=== PATIENT | female | born 1995 | race Caucasian/White ===

== ENCOUNTER → 2016-08-03 | Outpatient (CLI) | payer OTHER ==
[2016-08-03 13:55] LABS: CH 30.5; CHCM 32.5; HCT 31.5 % (34.0-46.0); HDW 3.16; HGB 10.2 gm/dL (11.4-16.0); Hypochromasia Slight; MCH 30.6 pg (25.0-35.0); MCHC 32.3 g/dL (31.0-37.0); Mean Platelet Volume 7.3; RBC 3.33 m/uL (3.80-5.40); RDW 14.7 % (11.5-15.5); WBC 11.8 k/uL (4.0-11.0)
[2016-08-03 13:56] LABS: MCV 94.7 fL (80.0-100.0)
== END | disposition home or self-care (01) ==
LOC: LABWHC1 12:09
PROVIDERS: ATTEND Obstetrics & Gynecology
DX: Z34.92 Encounter for supervision of normal pregnancy, unspecified, second trimester (principal); Z3A.00 Weeks of gestation of pregnancy not specified
CPT/HCPCS: 36415; 82950; 85027

== ENCOUNTER 2016-08-18 19:21 | Outpatient (CLI) | payer OTHER ==
[2016-08-18 19:55] LABS: Appearance,Urine Cloudy (Clear); Bacteria,Urine Rare /hpf; Bilirubin,Urine Negative (Negative); Calcium Oxalate Crystals,Urine Occasional /hpf; Glucose,Urine (UA) Negative (Negative); Ketones,Urine Trace (Negative); Leukocyte Esterase,Urine Large (Negative); Mucus,Urine Occasional /hpf; Nitrite,Urine Negative (Negative); PH, Urine 5.5 (5.0-8.0); Particle Count 16446; Protein,Urine 1+ (Negative); RBC,Urine 16 /hpf (0-5); Specific Gravity,Urine 1.028 (1.001-1.035); Squamous Epithelial Cell,Urine 9 /hpf (0-4); UA Billing (MACRO vs. MICRO) MICRO; WBC,Urine 21 /hpf (0-5)
== END 2016-08-18 20:35 | disposition home or self-care (01) ==
LOC: FBPOP 19:21
PROVIDERS: ATTEND Obstetrics & Gynecology
DX: O99.89 Other specified diseases and conditions complicating pregnancy, childbirth and the puerperium (principal); Z3A.26 26 weeks gestation of pregnancy; R10.9 Unspecified abdominal pain
CPT/HCPCS: 81001; 87086; 99213

== ENCOUNTER → 2016-09-04 | Outpatient (CLI) | payer OTHER ==
--- NOTE | 2016-09-05 09:58 | US ---
EXAMINATION TYPE: US OB anatomy transabd DATE OF EXAM: 09/04/2016 3:34 PM COMPARISON: NONE HISTORY: 4 ch TECHNIQUE: Transabdominal (TA) EXAM MEASUREMENTS: GESTATIONAL AGE / DATING Physician Established: (28 weeks/3 days) EDC: 11/24/16 Dates by LMP: (28 weeks/3 days) EDC: 11/24/16 Dates by First Scan: not available Dates by Current Scan for: (28 weeks/4 days) EDC: 11/23/2016 SURVEY IUP: Single PLACENTA: Anterior PREVIA: No previa DERRICK: 12.11 cm CERVICAL LENGTH (transabdominal: norm > 3.0cm): 3.4 cm BIOMETRY PRESENTATION: Vertex LIE: Transverse lie with head maternal L BPD: 7.2 cm 29 weeks / 0 days HC: 26.6 cm 29 weeks / 0 days AC: 25.0 cm 29 weeks / 1 days FL: 5.5 cm 28 weeks / 6 days ESTIMATED WEIGHT IN GRAMS: 1320 grams ESTIMATED WEIGHT IN LBS/OZS: 2 lbs. 15 oz. WEIGHT PERCENTAGE BASED ON ESTABLISHED DATE: 59 % HC/AC: 1.1 FL/AC: 21.9 HEART RATE: seen real time not documented RHYTHM: ANATOMY SEEN (within normal limits): * Cisterna Magna (< 1.1 cm) 0.5 cm * Nuchal Fold (< 0.6 cm) 0.5 cm * Cerebellum (varies with age) 3.1 cm Cavus Septi Pellucidi Four Chamber Heart Outflow tracts: LVOT/RVOT Stomach Nose / Lips Kidneys (bilateral) Bladder Cord Insert Three Vessel Cord Longitudinal Spine Transverse Spine Arms (bilateral) Legs (bilateral) ANATOMY NOT SEEN: due to position/crowding * Lateral Vent (< 1 cm) 0.9 cm Choroid Plexus (bilateral) Midline Falx Situs Diaphragm Arms (bilateral) MATERNAL WALL MEASUREMENT: 3.4 cm from skin to anterior uterine wall (if exam limited due to body little bitus). TECHNOLOGIST IMPRESSION: As seen above IMPRESSION: Single intrauterine gestation estimated at 28 weeks 4 days gestation. This have a calculated EDC of . Correlate this with her physician establish EDC. 2. Cardiac activity measurement was not obtained. Real-time cardiac activity was reported by the tech nologist. 3. There are some small parts are not evaluated during this examination
== END | disposition home or self-care (01) ==
LOC: RADUSWWP 14:04
PROVIDERS: ATTEND Obstetrics & Gynecology
DX: Z36 Encounter for antenatal screening of mother (principal); Z3A.28 28 weeks gestation of pregnancy
CPT/HCPCS: 76811

== ENCOUNTER 2016-11-23 05:27 | Inpatient (IN) | payer OTHER ==
--- NOTE | 2016-11-22 13:00 | P.HPOB ---
History of Present Illness H&P Date: 11/22/16 Chief Complaint: Patient is presenting for elective induction of labor. This patient is a pleasant 21 yr female EDC 11/24/2016 estimated gestational age 39 and 6/7 weeks who presents for requested induction of labor. care has been uncomplicated. Review of Systems Constitutional: Denies chills, Denies fever Ears, nose, mouth and throat: Denies headache, Denies sore throat Cardiovascular: Denies chest pain, Denies shortness of breath Respiratory: Denies cough Gastrointestinal: Reports heartburn Genitourinary: Reports Menstruation: Reports amenorrhea Musculoskeletal: Denies myalgias Past Medical History Past Medical History: No Reported History History of Any Multi-Drug Resistant Organisms: None Reported Past Surgical History: No Surgical Hx Reported Additional Past Surgical History / Comment(s): gum surgery. no hx of other surgery Past Anesthesia/Blood Transfusion Reactions: No Reported Reaction Past Psychological History: No Psychological Hx Reported Smoking Status: Never smoker Past Alcohol Use History: None Reported Past Drug Use History: None Reported - Past Family History Father History Unknown: Yes Additional Family Medical History / Comment(s): pt is adopted. no hx available Medications and Allergies Home Medications Medication Instructions Recorded Confirmed Type 78/Iron/Folate 1/Dha 1 each PO DAILY 08/18/16 09/09/16 History [Prenate Dha Softgel] Allergies Allergy/AdvReac Type Severity Reaction Status Date / Time No Known Allergies Allergy Verified 09/09/16 21:46 Exam - OBG Physical Exam Abdomen: bowel sounds normal, no diffuse tenderness, no bruit present, no guarding noted, no hepatomegaly, no splenomegaly, no mass Vulva: both: normal Vagina: normal moisture, no discharge Cervix: Cervix in the office was 2 cm/soft. Cervix: no lesion, no discharge Uterus: enlarged (fundal height was 40cm.) Results labs: A positive, Rubella Immune, RPR-HepB neg, Normal glucola, normal ultrasounds. GBS was negative. Assessment and Plan (1) Third trimester Narrative/Plan: This is a pleasant 21 yr old female 39 and 6/7 weeks estimated gestation age who is requesting elective induction of labor. Plan is induction of labor and anticipate normal vaginal delivery. Status: Acute (2) Elective induction of labor planned Status: Acute
[2016-11-23] MEDS ORDERED: TERBUTALINE 1 MG/ML VIAL SQ PRN (05:35)
[2016-11-23] MEDS ORDERED: LIDOCAINE 1% (PF) 10 MG/ML (30 ML SDV) SQ PRN (05:35)
[2016-11-23] MEDS ORDERED: CARBOPROST TROMETHAMINE 250 MCG/ML 1 ML AMP IM PRN (05:35)
[2016-11-23] MEDS ORDERED: OXYTOCIN 20 UNITS/1000 ML NS 1,000 ML IV SCH ×2 (05:35→12:33)
[2016-11-23] MEDS ORDERED: METHYLERGONOVINE 0.2 MG/ML 1 ML AMP IM PRN (05:35)
[2016-11-23] MEDS ORDERED: OXYTOCIN 10 UNIT/ML 1 ML VIAL IM PRN (05:35)
[2016-11-23 05:54] LABS: Basophils # (A) 0.1 k/uL (0-0.2); Basophils % (A) 1 %; CH 29.4; CHCM 33.4; Eosinophils # (A) 0.1 k/uL (0-0.7); Eosinophils % (A) 1 %; HCT 33.2 % (34.0-46.0); HDW 3.34; HGB 11.1 gm/dL (11.4-16.0); Luc # (Auto) 0.31; Luc % (Auto) 3; Lymphocytes # (A) 2.1 k/uL (1.0-4.8); Lymphocytes % (A) 19 %; MCH 29.5 pg (25.0-35.0); MCHC 33.3 g/dL (31.0-37.0); MCV 88.6 fL (80.0-100.0); Mean Platelet Volume 7.5; Monocytes # (A) 0.7 k/uL (0-1.0); Monocytes % (A) 6 %; Neutrophils # (A) 7.7 k/uL (1.3-7.7); Neutrophils % (A) 70 %; RBC 3.75 m/uL (3.80-5.40); RDW 15.4 % (11.5-15.5); WBC 10.9 k/uL (4.0-11.0); WBC (Perox) 10.81
[2016-11-23] MEDS: LACTATED RINGERS 1,000 ML IV SCH ×2 (06:00→08:52)
[2016-11-23] MEDS ORDERED: fentaNYL (PF) 50 MCG/ML 5 ML AMP ONE (08:54)
[2016-11-23] MEDS ORDERED: BUPIVACAINE (PF) 0.25% 30 ML VIAL ONE (08:54)
[2016-11-23] MEDS ORDERED: SODIUM CHLORIDE 0.9% 100 ML BAG ONE (08:54)
[2016-11-23] MEDS ORDERED: BUPIVACAINE (PF) 0.25% 25 ML, fentaNYL (PF) 200 MCG in SODIUM CHLORIDE 0.9% 71 ML EPIDURAL ONE (10:18)
[2016-11-23] MEDS ORDERED: diphenhydrAMINE 25 MG CAP PO PRN (12:33)
[2016-11-23] MEDS ORDERED: ZOLPIDEM 5 MG TAB PO PRN (12:33)
[2016-11-23] MEDS ORDERED: SIMETHICONE 80 MG CHEWABLE PO PRN (12:33)
[2016-11-23] MEDS ORDERED: diphenhydrAMINE 50 MG/ML 1 ML VIAL IVP PRN (12:33)
[2016-11-23] MEDS ORDERED: Acetaminophen-Codeine 300-30mg TAB PO PRN (12:33)
[2016-11-23] MEDS ORDERED: LANOLIN CREAM 5 GM TUBE TOPICAL PRN (12:33)
[2016-11-23] MEDS ORDERED: WITCH HAZEL 1 EACH MED..PAD TOPICAL PRN (12:33)
[2016-11-23] MEDS ORDERED: HYDROCORTISONE 2.5% RECTAL CREAM 30 GM TUBE RECTAL PRN (12:33)
[2016-11-23] MEDS ORDERED: BENZOCAINE SPRAY 57GM TOPICAL PRN (12:33)
--- NOTE | 2016-11-23 12:51 | P.PROBDLV ---
Vaginal Delivery Note - . Vaginal Delivery Note: Normal vaginal delivery viable female Apgars 8 and 9 delivery time is 1226 hrs. Please see dictated H&P for intimate details of this patient's admission. Brief summary this is a pleasant 21-year-old 2 para 1 female estimated gestational age 39-6/7 weeks gestation who is admitted to labor and delivery for elective induction of labor. Patient is 2-3 cm dilated and has artificial rupture membranes for clear fluid. Labor is induced with Pitocin per protocol. Patient does request an epidural for pain control and progresses quickly thereafter. Patient gets to complete pushes the head to the perineum. Posterior perineum was infiltrated 1% lidocaine and a midline episiotomy is made. He of controlled delivery of the 's head over the perineum. Mouth and nares are bulb suctioned at this time. With gentle downward traction we have delivery the anterior and posterior shoulder and rest this 's body. This is a vigorous viable female Apgars are 8 and 9 delivery time is 1226 hrs. has spontaneous respirations and good cry and grossly appears normal. After delivery of the the umbilical cord is doubly clamped and cut appears to be trivascular. The placenta spontaneously delivered intact. Inspection of the perineum shows a second-degree laceration which was repaired with 3-0 Vicryl usual fashion. Good reapproximation is noted. Estimated blood loss is 175 mL. There are no complications. All counts are correct 3. and mother stable delivery room. Infant's weight is 10 lbs. 5 oz./4680 g.
[2016-11-23] MEDS: SENNOSIDES-DOCUSATE SODIUM 1 EACH TAB PO SCH (20:05)
[2016-11-23] MEDS: Acetaminophen-Codeine 300-30mg TAB PO PRN (20:36)
[2016-11-24] MEDS: IBUPROFEN 600 MG TAB PO PRN ×3 (00:53→19:48)
--- NOTE | 2016-11-24 07:40 | P.PNOBGVD ---
Subjective - Subjective Patient reports: Reports appetite normal, Reports voiding normally, Reports pain well controlled, Reports ambulating normally : doing well Objective - Latest Vital Signs Latest vital signs: Vital Signs Temp Pulse Resp BP 11/23/16 20:00 98.0 F 84 18 136/74 11/23/16 14:32 97.2 F L 92 16 141/75 11/23/16 14:02 109 H 16 130/69 11/23/16 13:32 96.9 F L 108 H 16 141/66 11/23/16 13:17 100 18 136/62 11/23/16 13:02 112 H 18 134/63 11/23/16 12:47 112 H 18 143/70 11/23/16 12:32 98.4 F 127 H 18 144/63 Intake and Output 11/23/16 11/24/16 11/24/16 22:59 06:59 14:59 Other: # Voids 1 - Exam Lungs: bilateral: normal Chest: Normal S1, Normal S2 Extremities: Present: normal Abdomen: Present: normal appearance, soft Uterus: Present: normal, firm Assessment and Plan (1) Third trimester Narrative/Plan: day #1. Patient is resting without complaints. Vital signs are stable and she is afebrile. Uterus is firm nontender she's having normal lochia. My impression this is a normal course. Plan is to continue routine care. Current Visit: No Status: Acute Code(s): Z33.1 - STATE, INCIDENTAL SNOMED Code(s): 27409568 (2) Elective induction of labor planned Current Visit: Yes Status: Acute Code(s): [id number] - SNOMED Code(s): 656364152
[2016-11-24] MEDS: SENNOSIDES-DOCUSATE SODIUM 1 EACH TAB PO SCH ×3 (07:59→19:48)
[2016-11-24] MEDS: Acetaminophen-Codeine 300-30mg TAB PO PRN (08:00)
[2016-11-24] MEDS: ACETAMINOPHEN TAB 325 MG TAB PO PRN (16:29)
[2016-11-25] MEDS: ACETAMINOPHEN TAB 325 MG TAB PO PRN (00:20)
--- NOTE | 2016-11-25 06:10 | P.PNOBGVD ---
Subjective - Subjective Patient reports: Reports appetite normal, Reports voiding normally, Reports pain well controlled, Reports ambulating normally : doing well Objective - Latest Vital Signs Latest vital signs: Vital Signs Temp Pulse Resp BP Pulse Ox 11/24/16 23:51 97.7 F 95 14 119/61 11/24/16 16:00 98.2 F 85 18 126/85 100 11/24/16 12:00 98.2 F 75 18 142/78 100 11/24/16 08:00 98.2 F 90 18 134/71 99 - Exam Lungs: bilateral: normal Chest: Normal S1, Normal S2 Extremities: Present: normal Abdomen: Present: normal appearance, soft Uterus: Present: normal, firm Assessment and Plan (1) Third trimester Narrative/Plan: day #2. Patient is resting without complaints. Vital signs are stable she is afebrile. Uterus is firm nontender and she is having normal lochia. My impression is a normal course. Plan is to continue routine care discharge home later today. Current Visit: No Status: Acute Code(s): Z33.1 - STATE, INCIDENTAL SNOMED Code(s): 96191035 (2) Elective induction of labor planned Current Visit: Yes Status: Acute Code(s): [id number] - SNOMED Code(s): 591084760
--- NOTE | 2016-11-25 06:12 | P.DS ---
Providers Date of admission: 11/23/16 05:27 Expected date of discharge: 11/25/16 Attending physician: William Foster Primary care physician: Alice Lal - Discharge Diagnosis(es) (1) Third trimester Current Visit: No Status: Acute (2) Elective induction of labor planned Current Visit: Yes Status: Acute Hospital Course: Please see dictated H&P for intimate details of this patient's admission. Brief summary this pleasant 21-year-old 2 para 1 female 39-4/7 weeks gestation admitted to labor and delivery for elective induction of labor. Patient goes on have a vaginal delivery viable female infant, 10 lbs. 5 oz. day #2 patient's felt be stable for discharge home follow up with me in 6 weeks. Procedures: Induction of labor and normal vaginal delivery Patient Condition at Discharge: Good Plan - Discharge Summary New Discharge Prescriptions: Acetaminophen-Codeine 300-30mg [Tylenol w/codeine #3] 1 - 2 each PO Q4HR PRN # 30 tab PRN Reason: Mild Pain exceeding Tylenol Ibuprofen [Motrin] 600 mg PO Q6HR PRN #40 tab PRN Reason: Mild Pain Or Fever >= 100.5 Discharge Medication List 78/Iron/Folate 1/Dha [Prenate Dha Softgel] 1 each PO DAILY 08/18/16 [ History] Acetaminophen-Codeine 300-30mg [Tylenol w/codeine #3] 1 - 2 each PO Q4HR PRN # 30 tab 11/25/16 [Rx] Ibuprofen [Motrin] 600 mg PO Q6HR PRN #40 tab 11/25/16 [Rx] Follow up Appointment(s)/Referral(s): William Foster MD [STAFF PHYSICIAN] - 01/09/17 8:45 am Patient Instructions/Handouts: Vaginal Delivery (DC) Activity/Diet/Wound Care/Special Instructions: No intercourse or anything per vagina for 6 weeks. Please call if any fever, chills, excessive vaginal bleeding, and/or abdominal pain Discharge Disposition: HOME SELF-CARE
[2016-11-25] MEDS: IBUPROFEN 600 MG TAB PO PRN (08:08)
[2016-11-25] MEDS: SENNOSIDES-DOCUSATE SODIUM 1 EACH TAB PO SCH (08:09)
[2016-11-25 08:56] VITALS: BP 126/75; PULSE 85; RESP 18; TEMP 98.2
== END 2016-11-25 09:45 | disposition home or self-care (01) | DRG 775 ==
LOC: 4FBP 05:27
PROVIDERS: ADMIT Obstetrics & Gynecology; ATTEND Obstetrics & Gynecology
PROC: 10E0XZZ Delivery of Products of Conception, External Approach (ICD-10-PCS; principal; 2016-11-23)
PROC: 0KQM0ZZ Repair Perineum Muscle, Open Approach (ICD-10-PCS; 2016-11-23)
PROC: 3E033VJ Introduction of Other Hormone into Peripheral Vein, Percutaneous Approach (ICD-10-PCS; 2016-11-23)
PROC: 10907ZC Drainage of Amniotic Fluid, Therapeutic from Products of Conception, Via Natural or Artificial Opening (ICD-10-PCS; 2016-11-23)
PROC: 0W8NXZZ Division of Female Perineum, External Approach (ICD-10-PCS; 2016-11-23)
DX: O70.1 Second degree perineal laceration during delivery (principal); Z37.0 Single live birth; Z3A.39 39 weeks gestation of pregnancy
CPT/HCPCS: 85025; 88307

== ENCOUNTER 2016-12-26 20:07 | Emergency (ER) | payer OTHER ==
[2016-12-26 20:12] VITALS: RESP 18
[2016-12-26] MEDS ORDERED: SODIUM CHLORIDE 0.9% 1,000 ML IV STA (20:26)
--- NOTE | 2016-12-26 20:30 | ED ---
General Adult HPI - General Chief complaint: Back Pain/Injury Stated complaint: Back pain Time Seen by Provider: 12/26/16 20:16 Source: patient, RN notes reviewed Mode of arrival: ambulatory Limitations: no limitations - History of Present Illness Initial comments: This is a 21-year-old female presenting to the emergency Department chief complaint of right mid back pain radiating towards the right upper quadrant off and on for the past 3 weeks. She reports that she delivered her second child on 11/23/16. Patient denies any fever or chills. She reports that she does feel nauseated. Patient states the pain seems to be worse with eating certain fatty foods. Patient states that she has no dysuria or changes in bowel movements. She states that she is currently breast-feeding.Patient denies any recent fever, chills, shortness of breath, chest pain, vomiting, numbness or tingling, dysuria or hematuria, constipation or diarrhea, headaches or visual changes, or any other current symptoms - Related Data Home Medications Medication Instructions Recorded Confirmed 78/Iron/Folate 1/Dha 1 each PO DAILY 08/18/16 11/23/16 [Prenate Dha Softgel] Previous Rx's Medication Instructions Recorded Acetaminophen-Codeine 300-30mg 1 - 2 each PO Q4HR PRN #30 tab 11/25/16 [Tylenol w/codeine #3] Ibuprofen [Motrin] 600 mg PO Q6HR PRN #40 tab 11/25/16 Allergies Allergy/AdvReac Type Severity Reaction Status Date / Time No Known Allergies Allergy Verified 12/26/16 20:12 Review of Systems ROS Statement: Those systems with pertinent positive or pertinent negative responses have been documented in the HPI. ROS Other: All systems not noted in ROS Statement are negative. Past Medical History Past Medical History: No Reported History History of Any Multi-Drug Resistant Organisms: None Reported Past Surgical History: No Surgical Hx Reported Additional Past Surgical History / Comment(s): gum surgery. no hx of other surgery Past Anesthesia/Blood Transfusion Reactions: No Reported Reaction Past Psychological History: No Psychological Hx Reported Smoking Status: Never smoker Past Alcohol Use History: None Reported Past Drug Use History: None Reported - Past Family History Father History Unknown: Yes Additional Family Medical History / Comment(s): pt is adopted. no hx available General Exam - General Exam Comments Initial Comments: This is a 21-year-old female in no acute distress. Limitations: no limitations General appearance: alert, in no apparent distress Head exam: Present: atraumatic, normocephalic, normal inspection Eye exam: Present: normal appearance, PERRL, EOMI. Absent: scleral icterus, conjunctival injection, periorbital swelling ENT exam: Present: normal exam, mucous membranes moist Neck exam: Present: normal inspection. Absent: tenderness, meningismus, lymphadenopathy Respiratory exam: Present: normal lung sounds bilaterally Cardiovascular Exam: Present: regular rate, normal rhythm, normal heart sounds. Absent: systolic murmur, diastolic murmur, rubs, gallop, clicks GI/Abdominal exam: Present: soft, tenderness (Right upper quadrant tenderness.) , normal bowel sounds. Absent: distended, guarding, rebound, rigid Extremities exam: Present: normal inspection, full ROM, normal capillary refill. Absent: tenderness, pedal edema, joint swelling, calf tenderness Back exam: Present: normal inspection Neurological exam: Present: alert, oriented X3, CN II-XII intact Psychiatric exam: Present: normal affect, normal mood Skin exam: Present: warm, dry, intact, normal color. Absent: rash Course Vital Signs 12/26/16 20:10 Temperature 97.5 F L Pulse Rate 84 Respiratory 18 Rate Blood Pressure 130/73 O2 Sat by Pulse 99 Oximetry Medical Decision Making - Medical Decision Making This is a 21-year-old female presenting to the emergency Department chief complaint of right mid back pain radiating towards the right upper quadrant off and on for the past 3 weeks. She reports that she delivered her second child on 11/23/16. Patient denies any fever or chills. She reports that she does feel nauseated. Patient states the pain seems to be worse with eating certain fatty foods. Patient's lab work was reviewed and patient was given IV fluids. Patient's lab work shows a mildly elevated transaminases. Patient received a gallbladder ultrasound which did show 1 cm stone in the gallbladder neck. Borderline gallbladder wall thickening. No evidence of sludge or significant acute cholecystitis. Discussed these findings with the patient. Patient is follow-up with a surgeon to schedule gallbladder removal. Also advised to have a bland diet and clear liquids. Patient instructed on the biliary diet. Patient agrees to treatment plan will comply return parameters were discussed including severe fever and any worsening pain. Discussed the patient to take Tylenol or Motrin for the pain or previous prescribed pain medications as patient is breast-feeding. - Lab Data Result diagrams: 12/26/16 20:36 12/26/16 20:36 Lab Results 12/26/16 12/26/16 12/26/16 Range/Units 20:18 20:36 20:36 WBC 9.2 (4.0-11.0) k/uL RBC 4.57 (3.80-5.40) m/uL Hgb 13.0 (11.4-16.0) gm/dL Hct 37.8 (34.0-46.0) % MCV 82.6 D (80.0-100.0) fL MCH 28.4 (25.0-35.0) pg MCHC 34.4 (31.0-37.0) g/dL RDW 13.6 (11.5-15.5) % Plt Count 343 (150-450) k/uL Neutrophils % 59 % Lymphocytes % 28 % Monocytes % 7 % Eosinophils % 4 % Basophils % 0 % Neutrophils # 5.5 (1.3-7.7) k/uL Lymphocytes # 2.6 (1.0-4.8) k/uL Monocytes # 0.6 (0-1.0) k/uL Eosinophils # 0.3 (0-0.7) k/uL Basophils # 0.0 (0-0.2) k/uL PT (9.0-12.0) sec INR (<1.1) APTT (22.0-30.0) sec Sodium 142 (137-145) mmol/L Potassium 4.1 (3.5-5.1) mmol/L Chloride 104 (98-107) mmol/L Carbon Dioxide 27 (22-30) mmol/L Anion Gap 11 mmol/L BUN 13 (7-17) mg/dL Creatinine 0.76 (0.52-1.04) mg/dL Est GFR (MDRD) Af Amer >60 (>60 ml/min/1.73 sqM) Est GFR (MDRD) Non-Af >60 (>60 ml/min/1.73 sqM) Glucose 93 (74-99) mg/dL Calcium 9.5 (8.4-10.2) mg/dL Total Bilirubin 0.5 (0.2-1.3) mg/dL AST 59 H (14-36) U/L ALT 94 H (9-52) U/L Alkaline Phosphatase 56 (38-126) U/L Total Protein 7.5 (6.3-8.2) g/dL Albumin 4.4 (3.5-5.0) g/dL Amylase 55 (30-110) U/L Lipase 104 (23-300) U/L Urine Color Yellow Urine Appearance Clear (Clear) Urine pH 6.5 (5.0-8.0) Ur Specific [place] 1.022 (1.001-1.035) Urine Protein Negative (Negative) Urine Glucose (UA) Negative (Negative) Urine Ketones Negative (Negative) Urine Blood Negative (Negative) Urine Nitrite Negative (Negative) Urine Bilirubin Negative (Negative) Urine Urobilinogen <2.0 (<2.0) mg/dL Ur Leukocyte Esterase Moderate H (Negative) Urine RBC 1 (0-5) /hpf Urine WBC 9 H (0-5) /hpf Ur Squamous Epith Cells 3 (0-4) /hpf Urine Bacteria Rare H (None) /hpf Urine Mucus Rare H (None) /hpf 12/26/16 Range/Units 20:36 WBC (4.0-11.0) k/uL RBC (3.80-5.40) m/uL Hgb (11.4-16.0) gm/dL Hct (34.0-46.0) % MCV (80.0-100.0) fL MCH (25.0-35.0) pg MCHC (31.0-37.0) g/dL RDW (11.5-15.5) % Plt Count (150-450) k/uL Neutrophils % % Lymphocytes % % Monocytes % % Eosinophils % % Basophils % % Neutrophils # (1.3-7.7) k/uL Lymphocytes # (1.0-4.8) k/uL Monocytes # (0-1.0) k/uL Eosinophils # (0-0.7) k/uL Basophils # (0-0.2) k/uL PT 10.2 (9.0-12.0) sec INR 1.0 (<1.1) APTT 23.5 (22.0-30.0) sec Sodium (137-145) mmol/L Potassium (3.5-5.1) mmol/L Chloride (98-107) mmol/L Carbon Dioxide (22-30) mmol/L Anion Gap mmol/L BUN (7-17) mg/dL Creatinine (0.52-1.04) mg/dL Est GFR (MDRD) Af Amer (>60 ml/min/1.73 sqM) Est GFR (MDRD) Non-Af (>60 ml/min/1.73 sqM) Glucose (74-99) mg/dL Calcium (8.4-10.2) mg/dL Total Bilirubin (0.2-1.3) mg/dL AST (14-36) U/L ALT (9-52) U/L Alkaline Phosphatase (38-126) U/L Total Protein (6.3-8.2) g/dL Albumin (3.5-5.0) g/dL Amylase (30-110) U/L Lipase (23-300) U/L Urine Color Urine Appearance (Clear) Urine pH (5.0-8.0) Ur Specific [place] (1.001-1.035) Urine Protein (Negative) Urine Glucose (UA) (Negative) Urine Ketones (Negative) Urine Blood (Negative) Urine Nitrite (Negative) Urine Bilirubin (Negative) Urine Urobilinogen (<2.0) mg/dL Ur Leukocyte Esterase (Negative) Urine RBC (0-5) /hpf Urine WBC (0-5) /hpf Ur Squamous Epith Cells (0-4) /hpf Urine Bacteria (None) /hpf Urine Mucus (None) /hpf - Radiology Data Radiology results: report reviewed 1 cm stone in the gallbladder neck. No dilated ducts. No Cholecystitis. Gallbladder is borderline enlarged. Disposition Clinical Impression: Biliary colic, Gallbladder stone without cholecystitis or obstruction Disposition: HOME SELF-CARE Condition: Good Instructions: Biliary Colic (ED), Gallstones (ED) Additional Instructions: Patient advised to have a nonfatty bland diet for the next 2 days. Call the surgeon to schedule gallbladder removal surgery. Return to the emergency department if any alarming signs or symptoms occur. Referrals: Alice Lal DO [Primary Care Provider] - 1-2 days Carla Doss DO [Doctor of Osteopathic Medicine] - 1-2 days Time of Disposition: 21:56
[2016-12-26 20:32] LABS: Appearance,Urine Clear (Clear); Bacteria,Urine Rare /hpf; Bilirubin,Urine Negative (Negative); Glucose,Urine (UA) Negative (Negative); Ketones,Urine Negative (Negative); Leukocyte Esterase,Urine Moderate (Negative); Mucus,Urine Rare /hpf; Nitrite,Urine Negative (Negative); PH, Urine 6.5 (5.0-8.0); Particle Count 4266; Protein,Urine Negative (Negative); RBC,Urine 1 /hpf (0-5); Specific Gravity,Urine 1.022 (1.001-1.035); Squamous Epithelial Cell,Urine 3 /hpf (0-4); UA Billing (MACRO vs. MICRO) MICRO; Urobilinogen,Urine <2.0 mg/dL (<2.0); WBC,Urine 9 /hpf (0-5)
[2016-12-26 20:50] LABS: Basophils % (A) 0 %; CH 27.6; CHCM 33.5; Eosinophils # (A) 0.3 k/uL (0-0.7); Eosinophils % (A) 4 %; HCT 37.8 % (34.0-46.0); HDW 3.07; Luc % (Auto) 2; Lymphocytes # (A) 2.6 k/uL (1.0-4.8); Lymphocytes % (A) 28 %; MCH 28.4 pg (25.0-35.0); MCHC 34.4 g/dL (31.0-37.0); Mean Platelet Volume 6.8; Monocytes # (A) 0.6 k/uL (0-1.0); Monocytes % (A) 7 %; Neutrophils # (A) 5.5 k/uL (1.3-7.7); Neutrophils % (A) 59 %; RBC 4.57 m/uL (3.80-5.40); RDW 13.6 % (11.5-15.5); WBC 9.2 k/uL (4.0-11.0); WBC (Perox) 8.76
[2016-12-26 20:59] LABS: Partial Thromboplastin Time 23.5 sec (22.0-30.0); Prothrombin Time 10.2 sec (9.0-12.0)
[2016-12-26 21:01] LABS: ALT 94 U/L (9-52); AST 59 U/L (14-36); Alkaline Phosphatase 56 U/L (38-126); Amylase 55 U/L (30-110); Anion Gap 11 mmol/L; Blood Urea Nitrogen 13 mg/dL (7-17); Calcium 9.5 mg/dL (8.4-10.2); Carbon Dioxide 27 mmol/L (22-30); Chloride 104 mmol/L (98-107); Glucose 93 mg/dL (74-99); MCV 82.6 fL (80.0-100.0); Non-African American GFR(MDRD) >60 (>60 ml/min/1.73 sqM); Potassium 4.1 mmol/L (3.5-5.1); Sodium 142 mmol/L (137-145); Total Bilirubin 0.5 mg/dL (0.2-1.3); Total Protein 7.5 g/dL (6.3-8.2)
--- NOTE | 2016-12-26 21:41 | US ---
EXAMINATION TYPE: US gallbladder DATE OF EXAM: 12/26/2016 COMPARISON: NONE CLINICAL HISTORY: Pain. EXAM MEASUREMENTS: Liver Length: 21.4 cm Gallbladder Wall: 0.31 cm CBD: 0.4 cm Right Kidney: 11.7 x 4.8 x 5.6 cm Pancreas: Obscured by bowel gas, visualized portions wnl Liver: Enlarged Gallbladder: Stone visualized in neck measuring 1.0 cm Evidence for sonographic Sam's sign: No CBD: wnl Right Kidney: No hydronephrosis or masses seen IMPRESSION: There is a 1 cm stone in the gallbladder neck. No dilated ducts. No pancreatic mass. Gall bladder is borderline enlarged.
[2016-12-26 22:06] VITALS: BP 119/87; PULSE 87; TEMP 97.8
== END 2016-12-26 22:06 | disposition home or self-care (01) ==
LOC: EC 20:07
DX: K80.20 Calculus of gallbladder without cholecystitis without obstruction (principal)
CPT/HCPCS: 36415; 76705; 80053; 81001; 82150; 83690; 85025; 85610; 85730; 96360; 99284

== ENCOUNTER 2017-05-13 01:59 | Emergency (ER) | payer OTHER ==
[2017-05-13 02:20] VITALS: BP 125/85; PULSE 89; RESP 18; TEMP 98
--- NOTE | 2017-05-13 03:39 | ED ---
General Adult HPI - General Chief complaint: Recheck/Abnormal Lab/Rx Stated complaint: bat in house Time Seen by Provider: 05/13/17 02:29 Source: patient Mode of arrival: ambulatory Limitations: no limitations - History of Present Illness Initial comments: 22-year-old female patient presents to the emergency department today for evaluation after waking up to find a bat in her bedroom. Patient is unsure if she was bitten, denies any known bite sites. She states that the bat has been killed and they have retained the specimen. Patient denies any physical symptoms or other complaints. - Related Data Home Medications Medication Instructions Recorded Confirmed 78/Iron/Folate 1/Dha 1 each PO DAILY 08/18/16 04/28/17 [Prenate Dha Softgel] Previous Rx's Medication Instructions Recorded Acetaminophen-Codeine 300-30mg 1 - 2 each PO Q4HR PRN #30 tab 11/25/16 [Tylenol w/codeine #3] Ibuprofen [Motrin] 600 mg PO Q6HR PRN #40 tab 11/25/16 Allergies Allergy/AdvReac Type Severity Reaction Status Date / Time No Known Allergies Allergy Verified 05/13/17 02:20 Review of Systems ROS Statement: Those systems with pertinent positive or pertinent negative responses have been documented in the HPI. ROS Other: All systems not noted in ROS Statement are negative. Past Medical History Past Medical History: No Reported History History of Any Multi-Drug Resistant Organisms: None Reported Past Surgical History: No Surgical Hx Reported Additional Past Surgical History / Comment(s): gum surgery. no hx of other surgery Past Anesthesia/Blood Transfusion Reactions: No Reported Reaction Past Psychological History: No Psychological Hx Reported Smoking Status: Never smoker Past Alcohol Use History: None Reported Past Drug Use History: None Reported - Past Family History Father History Unknown: Yes Additional Family Medical History / Comment(s): pt is adopted. no hx available General Exam Limitations: no limitations General appearance: alert, in no apparent distress, other (This is a well- developed, well-nourished adult female patient in no acute distress. Vital signs upon presentation were temperature 98.0F, pulse 89, respirations 18, blood pressure 125/85, pulse ox 99% on room air.) Eye exam: Present: normal appearance, PERRL, EOMI. Absent: scleral icterus, conjunctival injection, periorbital swelling Respiratory exam: Present: normal lung sounds bilaterally. Absent: respiratory distress, wheezes, rales, rhonchi, stridor Cardiovascular Exam: Present: regular rate, normal rhythm, normal heart sounds. Absent: systolic murmur, diastolic murmur, rubs, gallop, clicks Skin exam: Present: warm, dry, intact, normal color, other (No evidence of bat bite). Absent: rash Course Vital Signs 05/13/17 02:17 Temperature 98.0 F Pulse Rate 89 Respiratory 18 Rate Blood Pressure 125/85 O2 Sat by Pulse 99 Oximetry Medical Decision Making - Medical Decision Making 22-year-old female patient presented to emergency department today after waking to find a bat in her bedroom. Patient is unsure if she was bitten. Physical examination was unremarkable, I was not able to find a bat bite site on her person. I did explain to her that these bites can be difficult to see and that this does not completely exclude the possibility that she was bitten. Patient does have the bat specimen. Patient's is planning to have this tested. I did inform her that we could delay administering prophylactic immunoglobulin and vaccine until the bat has been tested. I did tell her that the safe time frame for delaying immunization and immunoglobulin administration is 48-72 hours. We did give information regarding rabies, rabies vaccine, and rabies immunoglobulin for educational purposes. We did give her the phone number for the health department and department of natural resources services. She is instructed to return here immediately should she change her mind about withholding the injections. She is instructed to return here immediately for any other new, worsening, or concerning symptoms. She verbalizes understanding and agrees with this plan. Disposition Clinical Impression: Exposure to bat without known bite Disposition: HOME SELF-CARE Condition: Good Instructions: Rabies Vaccine (By injection), Rabies Immune Globulin (By injection), Rabies (ED) Additional Instructions: Information has been provided to you for education purposes regarding vaccines, immunoglobulin, and rabies. Call health Department in the morning for further instruction. Return here immediate for any new, worsening, or concerning symptoms. Referrals: Alice Lal DO [Primary Care Provider] - 1-2 days Time of Disposition: 03:39
== END 2017-05-13 03:43 | disposition home or self-care (01) ==
LOC: EC 01:59
DX: Z20.3 Contact with and (suspected) exposure to rabies (principal); Z79.899 Other long term (current) drug therapy
CPT/HCPCS: 99283

== ENCOUNTER 2018-09-19 19:00 | Emergency (ER) | payer OTHER ==
[2018-09-19 19:09] VITALS: BP 123/71; PULSE 123; RESP 16; TEMP 100.2
[2018-09-19] MEDS ORDERED: IBUPROFEN 600 MG TAB PO STA (19:35)
[2018-09-19] MEDS ORDERED: ACETAMINOPHEN TAB 325 MG TAB PO STA (19:35)
--- NOTE | 2018-09-19 19:38 | ED ---
ENT HPI - General Chief complaint: ENT Stated complaint: Throat swollen,fever,back pain Time Seen by Provider: 09/19/18 19:11 Source: patient, RN notes reviewed Mode of arrival: ambulatory Limitations: no limitations - History of Present Illness Initial comments: 23-year-old female presents emergency Department chief complaint fever, sore throat. Patient states that it started this morning. Patient states is very painful to swallow difficulty swallowing. Denies any nasal congestion, cough, ear pain, headache or dizziness. Patient states that she has no fatigue. Patient has no abdominal pain this time including dysuria, hematuria, vaginal bleeding or vaginal discharge. Patient has no chance . - Related Data Home Medications Medication Instructions Recorded Confirmed 78/Iron/Folate 1/Dha 1 each PO DAILY 08/18/16 04/28/17 [Prenate Dha Softgel] Previous Rx's Medication Instructions Recorded Acetaminophen-Codeine 300-30mg 1 - 2 each PO Q4HR PRN #30 tab 11/25/16 [Tylenol w/codeine #3] Ibuprofen [Motrin] 600 mg PO Q6HR PRN #40 tab 11/25/16 Amoxicillin 500 mg PO Q8H #30 capsule 09/19/18 Allergies Allergy/AdvReac Type Severity Reaction Status Date / Time No Known Allergies Allergy Verified 09/19/18 19:09 Review of Systems ROS Statement: Those systems with pertinent positive or pertinent negative responses have been documented in the HPI. ROS Other: All systems not noted in ROS Statement are negative. Past Medical History Past Medical History: No Reported History History of Any Multi-Drug Resistant Organisms: None Reported Past Surgical History: No Surgical Hx Reported Additional Past Surgical History / Comment(s): gum surgery. no hx of other surgery Past Anesthesia/Blood Transfusion Reactions: No Reported Reaction Past Psychological History: No Psychological Hx Reported Smoking Status: Never smoker Past Alcohol Use History: None Reported Past Drug Use History: None Reported - Past Family History Father History Unknown: Yes Additional Family Medical History / Comment(s): pt is adopted. no hx available General Exam Limitations: no limitations General appearance: alert, in no apparent distress Head exam: Present: atraumatic, normocephalic, normal inspection Eye exam: Present: normal appearance, PERRL, EOMI. Absent: scleral icterus, conjunctival injection, periorbital swelling ENT exam: Present: mucous membranes moist, TM's normal bilaterally, normal external ear exam. Absent: normal exam, normal oropharynx (Erythematous tonsils, edematous, swan secretions well no exudates) Neck exam: Present: normal inspection, full ROM, lymphadenopathy. Absent: tenderness, meningismus Respiratory exam: Present: normal lung sounds bilaterally. Absent: respiratory distress, wheezes, rales, rhonchi, stridor Cardiovascular Exam: Present: normal rhythm, tachycardia, normal heart sounds. Absent: systolic murmur, diastolic murmur, rubs, gallop, clicks GI/Abdominal exam: Present: soft, normal bowel sounds. Absent: distended, tenderness, guarding, rebound, rigid Back exam: Absent: CVA tenderness (R), CVA tenderness (L) Course Vital Signs 09/19/18 19:06 Temperature 100.2 F H Pulse Rate 123 H Respiratory 16 Rate Blood Pressure 123/71 O2 Sat by Pulse 97 Oximetry Medical Decision Making - Medical Decision Making 23-year-old female presented for sore throat. Patient has clinical strep pharyngitis. Patient we treated for amoxicillin. Patient continue Tylenol Motrin return parameters were discussed. Disposition Clinical Impression: Streptococcal sore throat Disposition: HOME SELF-CARE Condition: Stable Instructions (If sedation given, give patient instructions): Strep Throat (ED) Additional Instructions: Please return to the Emergency Department if symptoms worsen or any other concerns. Prescriptions: Amoxicillin 500 mg PO Q8H #30 capsule Is patient prescribed a controlled substance at d/c from ED?: No Referrals: Alice Lal DO [Primary Care Provider] - 1-2 days Time of Disposition: 19:38
== END 2018-09-19 19:49 | disposition home or self-care (01) ==
LOC: EC 19:00
DX: J02.0 Streptococcal pharyngitis (principal)
CPT/HCPCS: 99283

== ENCOUNTER → 2019-01-12 | Outpatient (CLI) | payer OTHER ==
--- NOTE | 2019-01-16 13:44 | US ---
EXAMINATION TYPE: US OB anatomy transabd DATE OF EXAM: 01/12/2019 COMPARISON: NONE HISTORY: 036.62XO large for dates Anatomy scan large for date. TECHNIQUE: Transabdominal (TA) EXAM MEASUREMENTS: GESTATIONAL AGE / DATING Physician Established: (19 weeks/2 days) EDC: 06/06/2019 Dates by LMP: (19 weeks/2 days) EDC: 06/06/2019 Dates by First Scan: No previous Dates by Current Scan for: (19 weeks/4 days) EDC: 06/04/2019 SURVEY IUP: Single PLACENTA: Anterior PREVIA: No previa DERRICK: 15.7 cm Normal CERVICAL LENGTH (transabdominal: norm > 3.0cm): 4.3 cm BIOMETRY PRESENTATION: Variable LIE: Transverse lie with head maternal Left BPD: 4.43 cm 19 weeks / 3 days HC: 16.90 cm 19 weeks / 4 days AC: 14.76 cm 20 weeks / 0 days FL: 3.21 cm 20 weeks / 0 days ESTIMATED WEIGHT IN GRAMS: 322.67 grams ESTIMATED WEIGHT IN LBS/OZ: 0 lbs. 11 oz. WEIGHT PERCENTAGE BASED ON ESTABLISHED DATE: 82.5 % HC/AC: 1.15cm Normal FL/AC: 21.73 cm Normal HEART RATE: 167 bpm RHYTHM: Normal ANATOMY SEEN (within normal limits): * Lateral Vent (< 1 cm) .7 cm * Cisterna Magna (< 1.1 cm) .26 cm * Nuchal Fold (< 0.6 cm) .3 cm * Cerebellum (varies with age) 1.9 cm Choroid Plexus (bilateral) Midline Falx Cavus Septi Pellucidi Four Chamber Heart Outflow tracts: LVOT/RVOT Stomach Situs Nose / Lips Diaphragm Kidneys (bilateral) Bladder Cord Insert Three Vessel Cord Longitudinal Spine Transverse Spine Arms (bilateral) Legs (bilateral) ANATOMY SEEN (does not appear within normal limits): ANATOMY NOT SEEN: Patient was recalled for some additional anatomy. IMPRESSION: Single viable intrauterine patency corresponding to ultrasound age 19 weeks 4 days with estimated carl e of delivery 06/04/2019 by today's exam
== END | disposition home or self-care (01) ==
LOC: RADUSWWP 16:01
PROVIDERS: ATTEND Obstetrics & Gynecology
DX: O36.62X1 Maternal care for excessive fetal growth, second trimester, fetus 1 (principal); Z3A.19 19 weeks gestation of pregnancy
CPT/HCPCS: 76811

== ENCOUNTER 2019-01-30 23:50 | Outpatient (CLI) | payer OTHER ==
[2019-01-31 00:19] LABS: Appearance,Urine Cloudy (Clear); Bacteria,Urine Occasional /hpf; Bilirubin,Urine Negative (Negative); Blood,Urine Small (Negative); Color,Urine Yellow; Glucose,Urine (UA) Negative (Negative); Ketones,Urine Negative (Negative); Leukocyte Esterase,Urine Large (Negative); Mucus,Urine Occasional /hpf; Nitrite,Urine Negative (Negative); PH, Urine 7.5 (5.0-8.0); Protein,Urine 2+ (Negative); RBC,Urine 22 /hpf (0-5); Specific Gravity,Urine 1.012 (1.001-1.035); Squamous Epithelial Cell,Urine 3 /hpf (0-4); WBC,Urine >182 /hpf (0-5)
[2019-01-31] MEDS ORDERED: CEPHALEXIN 500 MG CAP PO STA (00:30)
[2019-01-31 01:08] VITALS: BP 130/61; PULSE 100; RESP 18; TEMP 97.7
--- NOTE | 2019-02-01 15:14 | P.MSEPDOC ---
Presenting Problems - Arrival Data Date of Arrival on Unit: 01/31/19 Time of Arrival on Unit: 00:28 Mode of Transport: Ambulatory - Complaint OB-Reason for Admission/Chief Complaint: Pain Comment: lower righ back pain for the last 2 days, pressure when voiding and frequency Medical History - Information : 3 Para: 2 Term: 2 : 0 Abortions: Spontaneous or Elective: 0 Number of Living Children: 2 - Gestational Age Gestational Age by ABHIJEET (wks/days): 22 Weeks and 0 Days Review of Systems - Review of Systems Constitutional: No problems Breast: No problems ENT: No problems Cardiovascular: No problems Respiratory: No problems Gastrointestinal: No problems Genitourinary: No problems Musculoskeletal: No problems Neurological: No problems Skin: No problems Vital Signs - Temperature Temperature: 97.7 F Temperature Source: Temporal Artery Scan - Pulse Right Brachial Pulse Rate: 100 Pulse Assessment Method: Automatic Cuff - Respirations Respiratory Rate: 18 Oxygen Delivery Method: Room Air O2 Sat by Pulse Oximetry: 98 - Blood Pressure Right Arm Blood Pressure: 130/61 Blood Pressure Mean: 84 Blood Pressure Source: Automatic Cuff Medical Screen Scoring (Pre) - Cervical Exam Dilation: Exam Deferred Effacement: Exam Deferred Membranes: Intact - Uterine Contractions Frequency: N/A Duration: N/A Intensity: N/A - Maternal Vital Signs Maternal Temperature: N/A Maternal Blood Pressure: N/A Signs of Preeclampsia: N/A Maternal Respirations: N/A - Maternal Trauma Maternal Trauma: N/A - Assessment - Baby A Baseline FHR: 150 Heart Rate - NICHD Category: Category I (Normal) = 0 Position: N/A Station: N/A - Total Score - Baby A Total Score - Baby A: 0 - Total Score - Baby B Total Score - Baby B: 0 - Total Score - Baby C Total Score - Baby C: 0 - Level of Risk - Baby A Level of Risk - Baby A: Low (0-5) - Level of Risk - Baby B Level of Risk - Baby B: Low (0-5) - Level of Risk - Baby C Level of Risk - Baby C: Low (0-5) Physician Notification (Pre) - Physician Notified Physician Notified Date: 01/31/19 Physician Notified Time: 00:28 Physician/Practitioner Notifed:: Dr. Gallo Spoke With: Dr. Gallo New Order Received: Yes - Notification Comment Comment: culture urine and start start Keflex 500 mg dose now [address] Gallo will call in script to pt's pharmacy in the morning for UTI Disposition - Disposition OB Disposition: Triage, Discharge to home, Written follow up instructions reviewed Discharge Date: 01/31/19 Discharge Time: 00:45 I agree with the RN Medical Screening Exam: Yes Risk & Benefit of care provided described in d/c instruction: Yes Diagnosis: URINARY TRACT INFECTION, SITE NOT SPECIFIED
== END 2019-01-31 00:45 | disposition home or self-care (01) ==
LOC: FBPOP 23:50
PROVIDERS: ATTEND Obstetrics & Gynecology
DX: O23.42 Unspecified infection of urinary tract in pregnancy, second trimester (principal); Z3A.22 22 weeks gestation of pregnancy
CPT/HCPCS: 81001; 87086; 99213

== ENCOUNTER 2019-04-01 07:09 | Emergency (ER) | payer OTHER ==
[2019-04-01 07:15] VITALS: TEMP 98.1
[2019-04-01] MEDS ORDERED: METOCLOPRAMIDE 5 MG/ML 2 ML VIAL IVP STA (07:19)
[2019-04-01] MEDS ORDERED: SODIUM CHLORIDE 0.9% 1,000 ML IV STA ×2 (07:27→10:01)
--- NOTE | 2019-04-01 07:31 | ED ---
General Adult HPI - General Chief complaint: Nausea/Vomiting/Diarrhea Stated complaint: 30 weeks preg,vomiting Time Seen by Provider: 04/01/19 07:18 Source: patient Mode of arrival: ambulatory Limitations: no limitations - History of Present Illness Initial comments: Dictation was produced using [employer] dictation software. please excuse any grammatical, word or spelling errors. Chief Complaint: 23-year-old female presents with nausea vomiting diarrhea. History of Present Illness: Weight 3-year-old female she presents today with nausea vomiting diarrhea. This is patient's second . She is allegedly 30 weeks . She does have regular OB follow-up with Dr. Foster. Patient states since last night she's been having nausea vomiting diarrhea. Patient states she's having difficulty keeping anything down. She reports that her other child's father had similar symptoms. States that she has a mild epig astric tenderness which is worse when she vomits. Patient states she has not really had much competitions of this . She does take vitamins. Patient also complains of some watery diarrhea. Denies any blood, bilious characteristic to her diarrhea. No fever, chills or night sweats. Patient denies any recent travel or suspect ingestion of food. No recent hospitalization or antibiotics. The ROS documented in this emergency department record has been reviewed and confirmed by me. Those systems with pertinent positive or negative responses have been documented in the HPI. All other systems are other negative and/or noncontributory. PHYSICAL EXAM: General Impression: Alert and oriented x3, not in acute distress HEENT: Normocephalic atraumatic, extra-ocular movements intact, pupils equal and reactive to light bilaterally, dry mucous membranes Cardiovascular: Heart regular rate and rhythm, S1&S2 audible, no murmurs, rubs or gallops Chest: Lungs clear to auscultation bilaterally, no rhonchi, no wheeze, no rales Abdomen: Bowel sounds present, abdomen soft, non-tender, non-distended, no organomegaly, gravid abdomen Musculoskeletal: Pulses present and equal in all extremities, no peripheral edema Motor: no focal deficits noted Neurological: CN II-XII grossly intact, no focal motor or sensory deficits noted Skin: Intact with no visualized rashes Psych: Normal affect and mood ED course: 23-year-old female with chief complaint of nausea vomiting and diarrhea. Signs upon arrival shows heart rate of 120, rest of vital signs within acceptable limits. Clinical presentation is concerning for gastroenteritis. No concern for Clostridium difficile given that patient does not have any risk factors. She does have a sick contact.Abdomen evaluation obtained. Mild leukocytosis of 12.0 which is likely secondary to versus stress. Metabolic panel shows magnesium is 1.5. Rest of labs unremarkable. Urinalysis shows 10 white blood cells with 39 squamous cells. It'll heart rate was measured at 145. Patient was given intravenous fluids and antiemetics. Patient feeling improved. She is also given oral magnesium. Patient still having some mild diarrhea. Patient feels warm to be discharge. Clinical presentation consistent with gastroenteritis. Patient given prescription for antiemetics and Keflex for concerns of urinary tract infection. Patient told to rest and to maintain adequate hydration. Return parameters discussed. Patient clear for discharge. Repeat vitals are improved. - Related Data Home Medications Medication Instructions Recorded Confirmed Pedi Multivit No.25/Folic Acid 300 mcg PO DAILY 04/01/19 04/01/19 [[place] Multivit Chew Tab] Previous Rx's Medication Instructions Recorded Cephalexin [Keflex] 500 mg PO Q6HR 5 Days #20 cap 04/01/19 Doxylamine/Pyridoxine HCl (B6) 1 each PO BID PRN #20 tablet. 04/01/19 [Filippo Ferreira 10-10 mg Tablet] Allergies Allergy/AdvReac Type Severity Reaction Status Date / Time No Known Allergies Allergy Verified 04/01/19 07:51 Review of Systems ROS Statement: Those systems with pertinent positive or pertinent negative responses have been documented in the HPI. ROS Other: All systems not noted in ROS Statement are negative. Past Medical History Past Medical History: No Reported History Additional Past Medical History / Comment(s): frequent tonsilitis History of Any Multi-Drug Resistant Organisms: None Reported Past Surgical History: Cholecystectomy Additional Past Surgical History / Comment(s): gum surgery. Past Anesthesia/Blood Transfusion Reactions: No Reported Reaction Past Psychological History: ADD/ADHD Smoking Status: Never smoker - Past Family History Father History Unknown: Yes Family Medical History: Unable to Obtain Additional Family Medical History / Comment(s): pt is adopted. no hx available General Exam Limitations: no limitations Course Vital Signs 04/01/19 04/01/19 07:12 09:02 Temperature 98.1 F Pulse Rate 120 H 110 H Respiratory 20 16 Rate Blood Pressure 122/72 126/79 O2 Sat by Pulse 98 100 Oximetry Medical Decision Making - Lab Data Result diagrams: 04/01/19 08:05 04/01/19 08:05 Lab Results 04/01/19 04/01/19 04/01/19 Range/Units 08:05 08:05 08:20 WBC 12.0 H (3.8-10.6) k/uL RBC 4.50 (3.80-5.40) m/uL Hgb 12.5 (11.4-16.0) gm/dL Hct 38.8 (34.0-46.0) % MCV 86.1 (80.0-100.0) fL MCH 27.7 (25.0-35.0) pg MCHC 32.2 (31.0-37.0) g/dL RDW 13.6 (11.5-15.5) % Plt Count 294 (150-450) k/uL Neutrophils % 87 % Lymphocytes % 8 % Monocytes % 3 % Eosinophils % 1 % Basophils % 1 % Neutrophils # 10.4 H (1.3-7.7) k/uL Lymphocytes # 0.9 L (1.0-4.8) k/uL Monocytes # 0.4 (0-1.0) k/uL Eosinophils # 0.1 (0-0.7) k/uL Basophils # 0.1 (0-0.2) k/uL Sodium 139 (137-145) mmol/L Potassium 4.0 (3.5-5.1) mmol/L Chloride 104 (98-107) mmol/L Carbon Dioxide 22 (22-30) mmol/L Anion Gap 13 mmol/L BUN 10 (7-17) mg/dL Creatinine 0.62 (0.52-1.04) mg/dL Est GFR (CKD-EPI)AfAm >90 (>60 ml/min/1.73 sqM) Est GFR (CKD-EPI)NonAf >90 (>60 ml/min/1.73 sqM) Glucose 84 (74-99) mg/dL Calcium 9.3 (8.4-10.2) mg/dL Magnesium 1.5 L (1.6-2.3) mg/dL Total Bilirubin 0.7 (0.2-1.3) mg/dL AST 20 (14-36) U/L ALT 9 (9-52) U/L Alkaline Phosphatase 40 (38-126) U/L Total Protein 7.4 (6.3-8.2) g/dL Albumin 3.9 (3.5-5.0) g/dL Lipase 103 (23-300) U/L Urine Color Yellow Urine Appearance Cloudy H (Clear) Urine pH 6.0 (5.0-8.0) Ur Specific [place] 1.033 (1.001-1.035) Urine Protein 1+ H (Negative) Urine Glucose (UA) Negative (Negative) Urine Ketones 1+ H (Negative) Urine Blood Negative (Negative) Urine Nitrite Negative (Negative) Urine Bilirubin Negative (Negative) Urine Urobilinogen <2.0 (<2.0) mg/dL Ur Leukocyte Esterase Large H (Negative) Urine WBC 10 H (0-5) /hpf Ur Squamous Epith Cells 39 H (0-4) /hpf Urine Mucus Many H (None) /hpf Disposition Clinical Impression: Gastroenteritis Disposition: HOME SELF-CARE Condition: Good Instructions (If sedation given, give patient instructions): Acute Nausea and Vomiting (ED) Prescriptions: Doxylamine/Pyridoxine HCl (B6) [Filippo Ferreira 10-10 mg Tablet] 1 each PO BID PRN #20 tablet. PRN Reason: Nausea Cephalexin [Keflex] 500 mg PO Q6HR 5 Days #20 cap Is patient prescribed a controlled substance at d/c from ED?: No Referrals: Alice Lal DO [Primary Care Provider] - 1-2 days Time of Disposition: 10:17
[2019-04-01 08:18] LABS: Basophils # (A) 0.1 k/uL (0-0.2); Basophils % (A) 1 %; Eosinophils # (A) 0.1 k/uL (0-0.7); Eosinophils % (A) 1 %; HCT 38.8 % (34.0-46.0); HGB 12.5 gm/dL (11.4-16.0); Lymphocytes # (A) 0.9 k/uL (1.0-4.8); Lymphocytes % (A) 8 %; MCH 27.7 pg (25.0-35.0); MCHC 32.2 g/dL (31.0-37.0); MCV 86.1 fL (80.0-100.0); Mean Platelet Volume 6.7; Monocytes # (A) 0.4 k/uL (0-1.0); Monocytes % (A) 3 %; Neutrophils # (A) 10.4 k/uL (1.3-7.7); Neutrophils % (A) 87 %; Platelet Count 294 k/uL (150-450); RDW 13.6 % (11.5-15.5)
[2019-04-01 08:27] LABS: ALT 9 U/L (9-52); AST 20 U/L (14-36); African American GFR (CKD) >90 (>60 ml/min/1.73 sqM); Albumin 3.9 g/dL (3.5-5.0); Alkaline Phosphatase 40 U/L (38-126); Anion Gap 13 mmol/L; Blood Urea Nitrogen 10 mg/dL (7-17); Calcium 9.3 mg/dL (8.4-10.2); Carbon Dioxide 22 mmol/L (22-30); Chloride 104 mmol/L (98-107); Glucose 84 mg/dL (74-99); Magnesium 1.5 mg/dL (1.6-2.3); Sodium 139 mmol/L (137-145); Total Bilirubin 0.7 mg/dL (0.2-1.3); Total Protein 7.4 g/dL (6.3-8.2)
[2019-04-01] MEDS ORDERED: MAGNESIUM OXIDE 400 MG TAB PO STA (08:47)
[2019-04-01 09:52] LABS: Appearance,Urine Cloudy (Clear); Bilirubin,Urine Negative (Negative); Blood,Urine Negative (Negative); Color,Urine Yellow; Glucose,Urine (UA) Negative (Negative); Ketones,Urine 1+ (Negative); Leukocyte Esterase,Urine Large (Negative); Mucus,Urine Many /hpf; Nitrite,Urine Negative (Negative); Protein,Urine 1+ (Negative); Specific Gravity,Urine 1.033 (1.001-1.035); Squamous Epithelial Cell,Urine 39 /hpf (0-4); Urobilinogen,Urine <2.0 mg/dL (<2.0)
[2019-04-01 10:29] VITALS: BP 117/77; PULSE 92; RESP 20
== END 2019-04-01 10:41 | disposition home or self-care (01) ==
LOC: EC 07:09
DX: O99.613 Diseases of the digestive system complicating pregnancy, third trimester (principal); K52.9 Noninfective gastroenteritis and colitis, unspecified; O99.113 Other diseases of the blood and blood-forming organs and certain disorders involving the immune mechanism complicating pregnancy, third trimester; D72.829 Elevated white blood cell count, unspecified; O99.89 Other specified diseases and conditions complicating pregnancy, childbirth and the puerperium; R82.998 Other abnormal findings in urine; Z90.49 Acquired absence of other specified parts of digestive tract; Z3A.30 30 weeks gestation of pregnancy
CPT/HCPCS: 36415; 80053; 83690; 83735; 85025; 81001; 99284; 96374; 96361 ×2; J2765

== ENCOUNTER 2019-06-03 17:00 | Inpatient (IN) | payer OTHER ==
[2019-06-03] MEDS ORDERED: CARBOPROST TROMETHAMINE 250 MCG/ML 1 ML AMP IM PRN (17:43)
[2019-06-03] MEDS ORDERED: TERBUTALINE 1 MG/ML VIAL SQ PRN (17:43)
[2019-06-03] MEDS ORDERED: OXYTOCIN 10 UNIT/ML 1 ML VIAL IM PRN (17:43)
[2019-06-03] MEDS ORDERED: METHYLERGONOVINE 0.2 MG/ML 1 ML AMP IM PRN (17:43)
[2019-06-03] MEDS ORDERED: LIDOCAINE 0.5% (PF) 5 MG/ML (50 ML SDV) SQ PRN (17:43)
[2019-06-03] MEDS ORDERED: OXYTOCIN 30 UNITS/500 ML NS 30 UNIT in SALINE 1 500ML.BAG IV SCH (17:45)
[2019-06-03] MEDS: LACTATED RINGERS 1,000 ML IV SCH ×2 (18:07→18:53)
[2019-06-03 18:18] LABS: Basophils % (A) 0 %; Eosinophils # (A) 0.1 k/uL (0-0.7); Eosinophils % (A) 1 %; HCT 37.1 % (34.0-46.0); HGB 12.6 gm/dL (11.4-16.0); Lymphocytes # (A) 2.2 k/uL (1.0-4.8); Lymphocytes % (A) 22 %; MCH 28.5 pg (25.0-35.0); MCHC 33.9 g/dL (31.0-37.0); Monocytes # (A) 0.5 k/uL (0-1.0); Monocytes % (A) 5 %; Neutrophils # (A) 6.7 k/uL (1.3-7.7); Neutrophils % (A) 68 %; Platelet Count 303 k/uL (150-450); RBC 4.42 m/uL (3.80-5.40); RDW 13.8 % (11.5-15.5); WBC 9.8 k/uL (3.8-10.6)
[2019-06-03] MEDS ORDERED: fentaNYL (PF) 50 MCG/ML 5 ML AMP ONE (18:39)
[2019-06-03] MEDS ORDERED: ROPIVACAINE 5MG/ML 20ML VIAL ONE (18:39)
[2019-06-03] MEDS ORDERED: SODIUM CHLORIDE 0.9% 100 ML BAG ONE (18:39)
--- NOTE | 2019-06-03 20:58 | P.HPOB ---
History of Present Illness H&P Date: 06/03/19 Chief Complaint: SROM 24 year old presents at 39 weeks 4 days with SROM at 1530. Her cervix is 4 centers dilated, 70% effaced, -2 station. She is luly every 2-3 minutes. heart tones 130 with moderate variability and reactive. Review of Systems All systems: negative Constitutional: Denies chills, Denies fever Eyes: denies blurred vision, denies pain Ears, nose, mouth and throat: Denies headache, Denies sore throat Cardiovascular: Denies chest pain, Denies shortness of breath Respiratory: Denies cough Gastrointestinal: Denies abdominal pain, Denies diarrhea, Denies nausea, Denies vomiting Genitourinary: Denies dysuria, Denies hematuria Musculoskeletal: Denies myalgias Integumentary: Denies pruritus, Denies rash Neurological: Denies numbness, Denies weakness Psychiatric: Denies anxiety, Denies depression Endocrine: Denies fatigue, Denies weight change Past Medical History Past Medical History: No Reported History Additional Past Medical History / Comment(s): Frequent tonsilitis. Obstetric history: She's had 2 previous vaginal deliveries. She's had care with this with Dr. Foster. Blood type is A+, abs negative, rubella immune, hep is B-, GBS negative, HIV nonreactive, RPR nonreactive. History of Any Multi-Drug Resistant Organisms: None Reported Past Surgical History: Cholecystectomy Additional Past Surgical History / Comment(s): Gum surgery. Past Anesthesia/Blood Transfusion Reactions: No Reported Reaction Past Psychological History: ADD/ADHD Smoking Status: Never smoker Past Alcohol Use History: None Reported Past Drug Use History: None Reported - Past Family History Father History Unknown: Yes Family Medical History: Unable to Obtain Additional Family Medical History / Comment(s): pt is adopted. no hx available Medications and Allergies Home Medications Medication Instructions Recorded Confirmed Type No Known Home Medications 06/03/19 06/03/19 History Allergies Allergy/AdvReac Type Severity Reaction Status Date / Time No Known Allergies Allergy Verified 06/03/19 17:42 Exam Osteopathic Statement: *. No significant issues noted on an osteopathic structural exam other than those noted in the History and Physical/Consult. Vital Signs Temp Pulse Resp BP Pulse Ox 06/03/19 17:59 97.2 F L 72 18 128/88 97 Intake and Output 12/04/19 12/04/19 12/04/19 06:59 14:59 22:59 Intake Total 1000 Balance 1000 Intake: Intake, IV Titration 1000 Amount Lactated Ringers 1,000 ml 1000 @ 125 mls/hr IV .Q8H [facility] Rx#:[id number] Other: # Voids 1 Weight 113.398 kg Heart: Regular rate and rhythm Lungs: Clear to auscultation bilaterally Abdomen: Soft, nontender Extremities: Negative Homans sign Results Result Diagrams: 06/03/19 17:46 Assessment and Plan (1) Spontaneous rupture of membranes Current Visit: Yes Status: Acute Code(s): FTU3230 - SNOMED Code(s): 187133301 (2) Normal labor Current Visit: No Status: Acute Code(s): O80 - ENCOUNTER FOR FULL-TERM [facility] OMPLICATED DELIVERY SNOMED Code(s): 99279131 Plan: 1. Admit to family place 2. Epidural for pain management 3. Anticipate normal vaginal delivery
--- NOTE | 2019-06-03 20:59 | P.PROBDLV ---
Vaginal Delivery Note - . Vaginal Delivery Note: 24 year old presents at 39 weeks 4 days with SROM at 1530. Her cervix is 4 centers dilated, 70% effaced, -2 station. She is luly every 2-3 minutes. heart tones 130 with moderate variability and reactive. She did get an epidural. Soon after she was complete at 2033. She pushed, delivered a viable male infant over intact perineum under epidural anesthesia at 2036. Head delivered OA, anterior shoulder which was the right shoulder delivered gentle downward guidance for by posterior shoulder and rest of body. Nose and mouth bulb suctioned, cord clamped and cut, infant placed mother's abdomen. Apgars 8, 9, weight 9 lbs. 11 oz. Placenta delivered spontaneously, intact with three- vessel cord at 2037. Vagina, cervix, perineum inspected. First-degree midline laceration was repaired with 3-0 Vicryl. There was a left labial hematoma near the clitoris that is about 2 cm and not expanding. There was a small tear near the clitoris that was repaired with a [id number] stitch. Estimated blood loss 250 mL. Mother and baby in stable condition.
[2019-06-03] MEDS ORDERED: diphenhydrAMINE 50 MG CAP PO PRN (21:00)
[2019-06-03] MEDS ORDERED: WITCH HAZEL 1 EACH MED..PAD TOPICAL PRN (21:00)
[2019-06-03] MEDS ORDERED: OXYTOCIN 20 UNITS/1000 ML NS 1,000 ML IV SCH (21:00)
[2019-06-03] MEDS ORDERED: HYDROCORTISONE 2.5% RECTAL CREAM 30 GM TUBE RECTAL PRN (21:00)
[2019-06-03] MEDS ORDERED: diphenhydrAMINE 25 MG CAP PO PRN (21:00)
[2019-06-03] MEDS ORDERED: LANOLIN CREAM 5 GM TUBE TOPICAL PRN (21:00)
[2019-06-03] MEDS ORDERED: diphenhydrAMINE 50 MG/ML 1 ML VIAL IVP PRN ×2 (21:00)
[2019-06-03] MEDS ORDERED: SIMETHICONE 80 MG CHEWABLE PO PRN (21:00)
[2019-06-03] MEDS ORDERED: BENZOCAINE/MENTHOL SPRAY 1 GM/SPRAY AEROSOL TOPICAL PRN (21:00)
[2019-06-03] MEDS ORDERED: ZOLPIDEM 5 MG TAB PO PRN (21:00)
[2019-06-03] MEDS: IBUPROFEN 600 MG TAB PO PRN (21:46)
[2019-06-04] MEDS: ACETAMINOPHEN TAB 325 MG TAB PO PRN ×2 (00:53→14:12)
--- NOTE | 2019-06-04 06:59 | P.PNOBGVD ---
Subjective - Subjective Patient reports: Reports appetite normal, Reports voiding normally, Reports pain well controlled, Reports ambulating normally : doing well Objective - Latest Vital Signs Latest vital signs: Vital Signs Temp Pulse Resp BP Pulse Ox 06/04/19 04:00 98.2 F 86 18 128/68 06/03/19 23:15 98.0 F 100 14 132/70 06/03/19 22:46 98.0 F 110 H 16 135/65 06/03/19 22:16 97.0 F L 105 H 16 144/76 06/03/19 21:46 86 14 127/63 06/03/19 21:31 82 124/61 06/03/19 21:16 95 16 127/66 06/03/19 21:01 100 16 129/70 06/03/19 20:46 98.1 F 99 16 140/82 06/03/19 17:59 97.2 F L 72 18 128/88 97 Intake and Output 06/03/19 06/03/19 06/04/19 14:59 22:59 06:59 Intake Total 1000 1300 Balance 1000 1300 Intake: Intake, IV Titration 1000 1300 Amount Lactated Ringers 1,000 ml 1000 500 @ 125 mls/hr IV .Q8H FLORIN Rx#:[id number] Oxytocin 20 Units/1000 ml 800 Ns 1,000 ml @ Per Protocol IV .Q0M FLORIN Rx#: [id number] Other: # Voids 1 1 Weight 113.398 kg - Exam Lungs: bilateral: normal Chest: Normal S1, Normal S2 Extremities: Present: normal Abdomen: Present: normal appearance, soft Uterus: Present: normal, firm Assessment and Plan Assessment: day #1. She is resting without complaints. Vital signs are stable she's afebrile. I did do a peripheral exam of the perineum there is no evidence of a hematoma or expanding hematoma. Plan today is to continue routine care. Most likely will go home tomorrow. (1) Spontaneous vaginal delivery Current Visit: Yes Status: Acute Code(s): O80 - ENCOUNTER FOR FULL-TERM UNCOMPLICATED DELIVERY SNOMED Code(s): 498500575
[2019-06-04 07:43] LABS: Basophils % (A) 0 %; Eosinophils # (A) 0.1 k/uL (0-0.7); Eosinophils % (A) 1 %; HCT 32.8 % (34.0-46.0); Lymphocytes # (A) 2.6 k/uL (1.0-4.8); Lymphocytes % (A) 23 %; MCH 28.4 pg (25.0-35.0); MCHC 33.4 g/dL (31.0-37.0); MCV 84.8 fL (80.0-100.0); Mean Platelet Volume 7.7; Monocytes # (A) 0.8 k/uL (0-1.0); Monocytes % (A) 7 %; Neutrophils # (A) 7.7 k/uL (1.3-7.7); Neutrophils % (A) 67 %; Platelet Count 259 k/uL (150-450); RBC 3.87 m/uL (3.80-5.40); RDW 13.7 % (11.5-15.5); WBC 11.4 k/uL (3.8-10.6)
[2019-06-04] MEDS: IBUPROFEN 600 MG TAB PO PRN ×2 (07:49→18:15)
[2019-06-04] MEDS: SENNOSIDES-DOCUSATE SODIUM 1 EACH TAB PO SCH ×2 (07:50→19:58)
[2019-06-05 00:27] VITALS: TEMP 98.2
[2019-06-05] MEDS: IBUPROFEN 600 MG TAB PO PRN ×2 (01:11→08:51)
--- NOTE | 2019-06-05 06:32 | P.PNOBGVD ---
Subjective - Subjective Patient reports: Reports appetite normal, Reports voiding normally, Reports pain well controlled, Reports ambulating normally : doing well Objective - Latest Vital Signs Latest vital signs: Vital Signs Temp Pulse Resp BP Pulse Ox 06/05/19 00:10 137/80 06/05/19 00:00 98.2 F 18 140/85 97 06/04/19 20:00 97.7 F 103 H 18 128/87 96 06/04/19 16:00 98.2 F 84 15 142/82 06/04/19 08:00 98 F 85 15 127/74 98 Intake and Output 06/04/19 06/04/19 06/05/19 14:59 22:59 06:59 Other: Voiding Method Toilet # Voids 1 1 1 - Exam Lungs: bilateral: normal Chest: Normal S1, Normal S2 Extremities: Present: normal Abdomen: Present: normal appearance, soft Uterus: Present: normal, firm - Labs Labs: Abnormal Lab Results - Last 24 Hours (Table) 06/04/19 Range/Units 06:19 WBC 11.4 H (3.8-10.6) k/uL Hgb 11.0 L (11.4-16.0) gm/dL Hct 32.8 L (34.0-46.0) % Assessment and Plan Assessment: day #2. Patient is resting without complaints. Vital signs are stable she's afebrile. Uterus is firm nontender and she is having normal lochia. Plan today is to continue routine care discharge home this morning. (1) Spontaneous vaginal delivery Current Visit: Yes Status: Acute Code(s): O80 - ENCOUNTER FOR FULL-TERM UNCOMPLICATED DELIVERY SNOMED Code(s): 829680515
--- NOTE | 2019-06-05 06:36 | P.DS ---
Providers Date of admission: 06/03/19 17:30 Expected date of discharge: 06/05/19 Attending physician: William Foster Primary care physician: Stated None - Discharge Diagnosis(es) (1) Spontaneous vaginal delivery Current Visit: Yes Status: Acute Hospital Course: Please see dictated H&P for intimate details of this patient's admission. In brief summary this is a pleasant 24-year-old 3 para 2 female 39-4/7 weeks gestation admitted to labor and delivery in active labor. Patient is admitted quickly goes on have a vaginal delivery viable male infant. Please see dictated delivery note. day #2 patient's felt be stable for discharge home follow up with me in 6 weeks. Procedures: Normal spontaneous vaginal delivery Patient Condition at Discharge: Good Plan - Discharge Summary Discharge Rx Participant: Yes New Discharge Prescriptions: New Ibuprofen [Motrin] 600 mg PO Q6HR PRN #30 tab PRN Reason: Mild Pain Or Fever >= 100.5 Discharge Medication List Ibuprofen [Motrin] 600 mg PO Q6HR PRN #30 tab 06/05/19 [Rx] Follow up Appointment(s)/Referral(s): William Foster MD [STAFF PHYSICIAN] - 07/17/19 9:45 am Patient Instructions/Handouts: Vaginal Delivery (DC) Activity/Diet/Wound Care/Special Instructions: No intercourse or anything per vagina for 6 weeks. Please call if any fever, chills, excessive vaginal bleeding, and/or abdominal pain. Discharge Disposition: HOME SELF-CARE
[2019-06-05 09:17] VITALS: BP 134/78; PULSE 92; RESP 16
[2019-06-05] MEDS: SENNOSIDES-DOCUSATE SODIUM 1 EACH TAB PO SCH (09:17)
== END 2019-06-05 10:30 | disposition home or self-care (01) | DRG 806 ==
LOC: FBPOP 17:00 → 4FBP 17:30
PROVIDERS: ADMIT Obstetrics & Gynecology; ATTEND Obstetrics & Gynecology
PROC: 10E0XZZ Delivery of Products of Conception, External Approach (ICD-10-PCS; principal; 2019-06-03)
PROC: 0HQ9XZZ Repair Perineum Skin, External Approach (ICD-10-PCS; 2019-06-03)
PROC: 00HU33Z Insertion of Infusion Device into Spinal Canal, Percutaneous Approach (ICD-10-PCS; 2019-06-03)
PROC: 3E0R3BZ Introduction of Anesthetic Agent into Spinal Canal, Percutaneous Approach (ICD-10-PCS; 2019-06-03)
DX: O70.0 First degree perineal laceration during delivery (principal); O71.7 Obstetric hematoma of pelvis; Z37.0 Single live birth; Z3A.39 39 weeks gestation of pregnancy
CPT/HCPCS: 59025; 85025; 86850; 86900; 86901; 99213

== ENCOUNTER 2020-01-15 19:45 | Emergency (ER) | payer OTHER ==
[2020-01-15 20:47] LABS: Basophils # (A) 0.1 k/uL (0-0.2); Basophils % (A) 1 %; Eosinophils # (A) 0.2 k/uL (0-0.7); Eosinophils % (A) 2 %; HCT 39.4 % (34.0-46.0); HGB 12.8 gm/dL (11.4-16.0); Lymphocytes # (A) 2.7 k/uL (1.0-4.8); Lymphocytes % (A) 34 %; MCH 27.3 pg (25.0-35.0); MCHC 32.6 g/dL (31.0-37.0); MCV 83.6 fL (80.0-100.0); Mean Platelet Volume 7.3; Monocytes # (A) 0.4 k/uL (0-1.0); Monocytes % (A) 5 %; Neutrophils # (A) 4.5 k/uL (1.3-7.7); Neutrophils % (A) 56 %; Platelet Count 278 k/uL (150-450); RBC 4.71 m/uL (3.80-5.40); RDW 13.4 % (11.5-15.5); WBC 8.1 k/uL (3.8-10.6)
[2020-01-15 21:10] LABS: ALT 23 U/L (4-34); AST 25 U/L (14-36); African American GFR (CKD) >90 (>60 ml/min/1.73 sqM); Albumin 4.4 g/dL (3.5-5.0); Alkaline Phosphatase 36 U/L (38-126); Anion Gap 9 mmol/L; Blood Urea Nitrogen 14 mg/dL (7-17); Calcium 9.2 mg/dL (8.4-10.2); Carbon Dioxide 23 mmol/L (22-30); Chloride 104 mmol/L (98-107); Glucose 87 mg/dL (74-99); Non-African American GFR(CKD) >90 (>60 ml/min/1.73 sqM); Potassium 3.8 mmol/L (3.5-5.1); Sodium 136 mmol/L (137-145); Total Bilirubin 0.4 mg/dL (0.2-1.3); Total Protein 7.2 g/dL (6.3-8.2)
[2020-01-15 21:18] LABS: Appearance,Urine Cloudy (Clear); Bacteria,Urine Rare /hpf; Bilirubin,Urine Negative (Negative); Blood,Urine Negative (Negative); Color,Urine Yellow; Glucose,Urine (UA) Negative (Negative); Ketones,Urine Trace (Negative); Leukocyte Esterase,Urine Large (Negative); Mucus,Urine Many /hpf; Nitrite,Urine Negative (Negative); Protein,Urine 1+ (Negative); RBC,Urine 4 /hpf (0-5); Specific Gravity,Urine 1.035 (1.001-1.035); Squamous Epithelial Cell,Urine 29 /hpf (0-4); WBC,Urine 3 /hpf (0-5)
[2020-01-15 21:24] LABS: HCG,Quantitative Serum 828.8 mIU/mL
--- NOTE | 2020-01-15 21:30 | US ---
EXAMINATION TYPE: Transabdominal DATE OF EXAM: 01/15/2020 8:57 PM COMPARISON: NONE CLINICAL HISTORY: fall, pain, 5 weeks gestation. RLQ cramping EXAM PERFORMED: Transvaginal (TV) and Transabdominal (TA) EXAM MEASUREMENTS: GESTATIONAL AGE / DATING Physician Established: Not yet established Dates by LMP: 12/11/2019 ( 5 weeks/0 days) EDC: 09/16/2020 Dates by First Scan: No previous this is first scan Dates by Current Scan for: No IUP seen at this time MATERNAL ANATOMY Uterus: 7.9 x 5.0 x 6.4 cm Right Ovary: 3.5 x 1.6 x 3.1 cm Left Ovary: 2.8 x 1.2 x 2.5 cm Post CDS / Adnexa: wnl Presence of free fluid: none Presence of corpus luteal cyst: complex lesion on right ovary measures 2.3 x 1.4 x 2.4 cm. Presence of subchorionic bleed: 2.3 x 1.1 x 1.7 cm area with low level echoes. GESTATION / SURVEY MSD: 0.3 cm (measures out of range or too early to measure. ) Date of LMP: 12/11/2019 Beta HcG (if available): Not available at time of exam. Possible small gestational sac measuring out of range to measure. Subchorionic bleed surrounding this possible gestational sac. Recommend serial Beta HcG and follow up ultrasound. IMPRESSION: Possible early intrauterine gestational sac sac measuring 4 x 3 mm. Fluid in the uterine fundus could be subchorionic hemorrhage. Fluid measures 23 x 12 mm. No adnexal mass suspicious for ectopic pregna ncy.
[2020-01-15] MEDS ORDERED: PRENATAL VIT-IRON-FOLIC ACID 1 EACH CAP PO STA (22:01)
[2020-01-15] MEDS ORDERED: CEPHALEXIN 500 MG CAP PO STA (22:02)
--- NOTE | 2020-01-15 22:03 | ED ---
General Adult HPI - General Chief complaint: Fall Stated complaint: 5 weeks -cramping Time Seen by Provider: 01/15/20 20:00 Source: patient, RN notes reviewed, old records reviewed Mode of arrival: ambulatory Limitations: no limitations - History of Present Illness Initial comments: 24-year-old female patient who is a presents to ED for evaluation of fall. Patient reports that she is approximately 5 weeks by last menstrual period. She denies having previously taken vitamins at this point or having any prior MEDICAL RECORDS CLERK follow-up. She reports that she was walking when her flip-flop clipped the top stair. She reports that she slid down the stairs on her abdomen. She denies any trauma to head or neck. Denies any injury have she's been having some abdominal cramping since then. She denies any vaginal bleeding. She denies any other complaints. Systemic: Pt denies fatigue, fever/chills, rash. Pt denies weakness, night sweats, weight loss. Neuro: Pt denies headache, visual disturbances, syncope or pre-syncope. HEENT: Pt denies ocular discharge or irritation, otalgia, rhinorrhea, pharyngitis or notable lymphadenopathy. Cardiopulmonary: Pt denies chest pain, SOB, heart palpitations, dyspnea on exertion. Abdominal/GI: Pt denies abdominal pain, n/v/d. : Pt denies dysuria, burning w/ urination, frequency/urgency. Denies new onset urinary or bowel incontinence. MSK: Pt denies myalgia, loss of strength or function in extremities. Neuro: Pt denies new onset weakness, paresthesias. - Related Data Home Medications Medication Instructions Recorded Confirmed Unknown Vaginal Cream 1 applicator VAGINAL DAILY 01/15/20 Previous Rx's Medication Instructions Recorded Cephalexin [Keflex] 500 mg PO Q12HR 5 Days #10 cap 01/15/20 Pnv No.95/Ferrous Fum/Folic AC 1 each PO Q24HR 30 Days #30 tablet 01/15/20 [ Multivitamin Tablet] Allergies Allergy/AdvReac Type Severity Reaction Status Date / Time No Known Allergies Allergy Verified 01/15/20 22:05 Review of Systems ROS Statement: Those systems with pertinent positive or pertinent negative responses have been documented in the HPI. ROS Other: All systems not noted in ROS Statement are negative. Past Medical History Past Medical History: No Reported History Additional Past Medical History / Comment(s): Frequent tonsilitis. Obstetric history: She's had 2 previous vaginal deliveries. She's had care with this with Dr. Foster. Blood type is A+, abs negative, rubella immune, hep is B-, GBS negative, HIV nonreactive, RPR nonreactive. History of Any Multi-Drug Resistant Organisms: None Reported Past Surgical History: Cholecystectomy Additional Past Surgical History / Comment(s): Gum surgery. Past Anesthesia/Blood Transfusion Reactions: No Reported Reaction Past Psychological History: ADD/ADHD Smoking Status: Never smoker Past Alcohol Use History: None Reported Past Drug Use History: None Reported - Past Family History Father History Unknown: Yes Family Medical History: Unable to Obtain Additional Family Medical History / Comment(s): pt is adopted. no hx available General Exam - General Exam Comments Initial Comments: Constitutional: NAD, AOX3, Pt has pleasant affect. HEENT: NC/AT, trachea midline, neck supple, no lymphadenopathy. Posterior pharynx non erythematous, without exudates. External ears appear normal, without discharge. Mucous membranes moist. Eyes PERRLA, EOM intact. There is no scleral icterus. No pallor noted. Cardiopulmonary: RRR, no murmurs, rubs or gallops, no JVD noted. Lungs CTAB in anterior and posterior butler. No peripheral edema. Abdominal exam: Abdomen soft and non-distended. Abdomen non-tender to palpation in all 4 quadrants. Bowel sounds active in LLQ. No hepatosplenomegaly. No ecchymosis Neuro: CN II-XII grossly intact. No nuchal rigidity. No raccon eyes, no boggs sign, no hemotympanum. No cervical spinal tenderness. MSK: No posterior calf tenderness bilaterally, homans sign negative bilaterally. Posterior tibialis and radial pulse +2 bilaterally. Sensation intact in upper and lower extremities. Full active ROM in upper and lower extremities, 5/5 stregnth. Limitations: no limitations Course Vital Signs 01/15/20 19:53 Temperature 98.3 F Pulse Rate 90 Respiratory 20 Rate Blood Pressure 130/78 O2 Sat by Pulse 100 Oximetry Medical Decision Making - Medical Decision Making 24-year-old female patient who is a presents to ED for evaluation of fall. Patient reports that she is approximately 5 weeks by last menstrual period. She denies having previously taken vitamins at this point or having any prior MEDICAL RECORDS CLERK follow-up. She reports that she was walking when her flip-flop clipped the top stair. She reports that she slid down the stairs on her abdomen. She denies any trauma to head or neck. Denies any injury have she's been having some abdominal cramping since then. She denies any vaginal bleeding. She denies any other complaints. Patient will signs are stable, afebrile. Physical exam is fully nontender abdomen. Laboratory investigations reveal hCG of 828. Asymptomatic bacteriuria. Patient not having any vaginal symptoms. Blood type is A+. US transvaginal displayed possible early intrauterine gestational sac measuring 4 x 3 mm. Fluid in the uterine fundus to be subchorionic hemorrhage. Fluid measuring 23 x 12 mm. No adnexal masses suspicious for ectopic . Patient will be prescribed antibiotics for asymptomatic bacteriuria as well as prescribed vitamins. Patient will follow-up with MEDICAL RECORDS CLERK tomorrow and have hcg quant redrawn in 2 days. Will return to ED if condition worsens. Case discussed with Dr. Mi. - Lab Data Result diagrams: 01/15/20 20:38 01/15/20 20:38 Lab Results 01/15/20 01/15/20 01/15/20 Range/Units 20:38 20:38 20:38 WBC 8.1 (3.8-10.6) k/uL RBC 4.71 (3.80-5.40) m/uL Hgb 12.8 (11.4-16.0) gm/dL Hct 39.4 (34.0-46.0) % MCV 83.6 (80.0-100.0) fL MCH 27.3 (25.0-35.0) pg MCHC 32.6 (31.0-37.0) g/dL RDW 13.4 (11.5-15.5) % Plt Count 278 (150-450) k/uL Neutrophils % 56 % Lymphocytes % 34 % Monocytes % 5 % Eosinophils % 2 % Basophils % 1 % Neutrophils # 4.5 (1.3-7.7) k/uL Lymphocytes # 2.7 (1.0-4.8) k/uL Monocytes # 0.4 (0-1.0) k/uL Eosinophils # 0.2 (0-0.7) k/uL Basophils # 0.1 (0-0.2) k/uL Sodium 136 L (137-145) mmol/L Potassium 3.8 (3.5-5.1) mmol/L Chloride 104 (98-107) mmol/L Carbon Dioxide 23 (22-30) mmol/L Anion Gap 9 mmol/L BUN 14 (7-17) mg/dL Creatinine 0.73 (0.52-1.04) mg/dL Est GFR (CKD-EPI)AfAm >90 (>60 ml/min/1.73 sqM) Est GFR (CKD-EPI)NonAf >90 (>60 ml/min/1.73 sqM) Glucose 87 (74-99) mg/dL Calcium 9.2 (8.4-10.2) mg/dL Total Bilirubin 0.4 (0.2-1.3) mg/dL AST 25 (14-36) U/L ALT 23 (4-34) U/L Alkaline Phosphatase 36 L (38-126) U/L Total Protein 7.2 (6.3-8.2) g/dL Albumin 4.4 (3.5-5.0) g/dL HCG, Quant 828.8 mIU/mL Urine Color Urine Appearance (Clear) Urine pH (5.0-8.0) Ur Specific [place] (1.001-1.035) Urine Protein (Negative) Urine Glucose (UA) (Negative) Urine Ketones (Negative) Urine Blood (Negative) Urine Nitrite (Negative) Urine Bilirubin (Negative) Urine Urobilinogen (<2.0) mg/dL Ur Leukocyte Esterase (Negative) Urine RBC (0-5) /hpf Urine WBC (0-5) /hpf Ur Squamous Epith Cells (0-4) /hpf Urine Bacteria (None) /hpf Urine Mucus (None) /hpf Blood Type A Positive Blood Type Recheck A Pos Bld Type Recheck Status No 01/15/20 Range/Units 21:08 WBC (3.8-10.6) k/uL RBC (3.80-5.40) m/uL Hgb (11.4-16.0) gm/dL Hct (34.0-46.0) % MCV (80.0-100.0) fL MCH (25.0-35.0) pg MCHC (31.0-37.0) g/dL RDW (11.5-15.5) % Plt Count (150-450) k/uL Neutrophils % % Lymphocytes % % Monocytes % % Eosinophils % % Basophils % % Neutrophils # (1.3-7.7) k/uL Lymphocytes # (1.0-4.8) k/uL Monocytes # (0-1.0) k/uL Eosinophils # (0-0.7) k/uL Basophils # (0-0.2) k/uL Sodium (137-145) mmol/L Potassium (3.5-5.1) mmol/L Chloride (98-107) mmol/L Carbon Dioxide (22-30) mmol/L Anion Gap mmol/L BUN (7-17) mg/dL Creatinine (0.52-1.04) mg/dL Est GFR (CKD-EPI)AfAm (>60 ml/min/1.73 sqM) Est GFR (CKD-EPI)NonAf (>60 ml/min/1.73 sqM) Glucose (74-99) mg/dL Calcium (8.4-10.2) mg/dL Total Bilirubin (0.2-1.3) mg/dL AST (14-36) U/L ALT (4-34) U/L Alkaline Phosphatase (38-126) U/L Total Protein (6.3-8.2) g/dL Albumin (3.5-5.0) g/dL HCG, Quant mIU/mL Urine Color Yellow Urine Appearance Cloudy H (Clear) Urine pH 6.0 (5.0-8.0) Ur Specific [place] 1.035 (1.001-1.035) Urine Protein 1+ H (Negative) Urine Glucose (UA) Negative (Negative) Urine Ketones Trace H (Negative) Urine Blood Negative (Negative) Urine Nitrite Negative (Negative) Urine Bilirubin Negative (Negative) Urine Urobilinogen 4.0 (<2.0) mg/dL Ur Leukocyte Esterase Large H (Negative) Urine RBC 4 (0-5) /hpf Urine WBC 3 (0-5) /hpf Ur Squamous Epith Cells 29 H (0-4) /hpf Urine Bacteria Rare H (None) /hpf Urine Mucus Many H (None) /hpf Blood Type Blood Type Recheck Bld Type Recheck Status Disposition Clinical Impression: Fall, , Asymptomatic bacteriuria Disposition: HOME SELF-CARE Condition: Stable Instructions (If sedation given, give patient instructions): (ED), Fall Prevention (ED) Additional Instructions: Take vitamins as directed. Take antibiotics for asymptomatic bacteriuria. Follow-up with MEDICAL RECORDS CLERK tomorrow. Give Dr. 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 Redraw of hCG quant in 48 hours. Recommend repeat ultrasound by MEDICAL RECORDS CLERK. Return to ER if condition worsens. Prescriptions: Cephalexin [Keflex] 500 mg PO Q12HR 5 Days #10 cap Pnv No.95/Ferrous Fum/Folic AC [ Multivitamin Tablet] 1 each PO Q24HR 30 Days #30 tablet Is patient prescribed a controlled substance at d/c from ED?: No Referrals: Alice Lal DO [Primary Care Provider] - 1-2 days William Foster MD [STAFF PHYSICIAN] - 1-2 days
[2020-01-15 22:31] VITALS: BP 124/70; PULSE 74; RESP 16; TEMP 97.9
== END 2020-01-15 22:31 | disposition home or self-care (01) ==
LOC: EC 19:45
DX: O99.830 Other infection carrier state complicating pregnancy (principal); R82.71 Bacteriuria; O9A.211 Injury, poisoning and certain other consequences of external causes complicating pregnancy, first trimester; R10.9 Unspecified abdominal pain; Z3A.01 Less than 8 weeks gestation of pregnancy; Y93.01 Activity, walking, marching and hiking; Y92.009 Unspecified place in unspecified non-institutional (private) residence as the place of occurrence of the external cause; W10.9XXA Fall (on) (from) unspecified stairs and steps, initial encounter
CPT/HCPCS: 36415; 86900; 86901; 80053; 85025; 81001; 84702; 76801; 76817; 99284; S0197

== ENCOUNTER → 2020-01-19 | Outpatient (CLI) | payer OTHER | END | disposition home or self-care (01) | LOC: LABWHC1 12:39 | PROVIDERS: ATTEND Obstetrics & Gynecology | DX: O20.0 Threatened abortion (principal) | CPT/HCPCS: 36415; 84702 ==

== ENCOUNTER → 2020-02-05 | Outpatient (CLI) | payer OTHER ==
--- NOTE | 2020-02-05 08:58 | US ---
EXAMINATION TYPE: Transabdominal DATE OF EXAM: 02/05/2020 8:47 AM COMPARISON: US 01/15/2020 CLINICAL HISTORY: Z36 F/U abn imaging. EXAM PERFORMED: Transabdominal (TA) EXAM MEASUREMENTS: GESTATIONAL AGE / DATING Physician Established: Not yet established Dates by LMP: (8 weeks/0 days) EDC: 09/16/2020 Dates by First Scan: No IUP seen Dates by Current Scan for: (7 weeks/2 days) EDC: 09/21/2020 MATERNAL ANATOMY Uterus: 13.3 x 4.8 x 6.5 cm Right Ovary: 3.0 x 1.6 x 2.0 cm Left Ovary: 2.3 x 1.2 x 2.0 cm Post CDS / Adnexa: wnl Presence of free fluid: No Presence of corpus luteal cyst: Not seen Presence of subchorionic bleed: Yes, measuring 3.0 x 1.0 x 0.9 cm GESTATION / SURVEY CRL: 1.09 (7 weeks/2 days) Yolk Sac (normal less than 6mm): 3mm Heart Rate: 158 bpm Rhythm: Normal IUP: Viable IUP Date of LMP: 12/11/19 IMPRESSION: Viable IUP with an ABHIJEET of 09/21/2020 by this exam. Probable subchorionic bleed visualized measuring 3. 0 x 1.0 x 0.9 cm
== END | disposition home or self-care (01) ==
LOC: RADUSWWP 08:13
PROVIDERS: ATTEND Obstetrics & Gynecology
DX: Z34.80 Encounter for supervision of other normal pregnancy, unspecified trimester (principal); Z3A.01 Less than 8 weeks gestation of pregnancy
CPT/HCPCS: 76801

== ENCOUNTER 2020-09-08 05:46 | Inpatient (IN) | payer OTHER ==
--- NOTE | 2020-09-07 17:26 | P.HPOB ---
History of Present Illness H&P Date: 09/07/20 Chief Complaint: Two-vessel umbilical cord for delivery This patient is a pleasant 25-year-old 4 para 3 female estimated date of confinement 09/15/2020 estimated gestational age 39 weeks who presents to labor and delivery for induction of labor secondary to a known two-vessel umbilical cord. She is care is such that she had a routine anatomy ultrasound at 19 weeks which showed a two-vessel cord. Patient was referred to maternal- medicine and this was confirmed as well as normal anatomy. Recommendations were to do growth ultrasounds and nonstress testing which she has been doing without problems. Also recommended to proceed with delivery prior to her EDC due to slight increased risk of stillborn. Patient now presents for delivery. Review of Systems Genitourinary: Reports Menstruation: Reports amenorrhea Past Medical History Past Medical History: No Reported History Additional Past Medical History / Comment(s): Frequent tonsilitis. Obstetric history: She's had 2 previous vaginal deliveries. She's had care with this with Dr. Foster. Blood type is A+, abs negative, rubella immune, hep is B-, GBS negative, HIV nonreactive, RPR nonreactive. History of Any Multi-Drug Resistant Organisms: None Reported Past Surgical History: Cholecystectomy Additional Past Surgical History / Comment(s): Gum surgery. Past Anesthesia/Blood Transfusion Reactions: No Reported Reaction Past Psychological History: ADD/ADHD Smoking Status: Never smoker Past Alcohol Use History: None Reported Past Drug Use History: None Reported - Past Family History Father History Unknown: Yes Family Medical History: Unable to Obtain Additional Family Medical History / Comment(s): pt is adopted. no hx available Medications and Allergies Home Medications Medication Instructions Recorded Confirmed Type Cephalexin [Keflex] 500 mg PO Q12HR 5 Days #10 cap 01/15/20 Rx Pnv No.95/Ferrous Fum/Folic AC 1 each PO Q24HR 30 Days #30 tablet 01/15/20 Rx [ Multivitamin Tablet] Unknown Vaginal Cream 1 applicator VAGINAL DAILY 01/15/20 History Allergies Allergy/AdvReac Type Severity Reaction Status Date / Time No Known Allergies Allergy Verified 01/15/20 22:05 Exam - OBG Physical Exam Abdomen: bowel sounds normal, no diffuse tenderness, no bruit present, no guarding noted, no hepatomegaly, no splenomegaly, no mass Vulva: both: normal Vagina: normal moisture, no discharge Cervix: no lesion (Cervix the office 2 cm dilated and effaced.), no discharge Uterus: enlarged (Fundal height 40 cm) Results blood work shows she is A positive, rubella immune, RPR nonreactive, hepatitis B negative, HIV is nonreactive, Glucola was normal, level III ultrasound cardiac echo was normal with the exception of a 2 vessel umbilical cord, group B strep was negative, most recent ultrasound showed estimated weight at 6 lbs. 1 oz. this was on August 23. Assessment and Plan Assessment: This is a pleasant 25-year-old 4 para 3 female estimated gestational age 39-0/7 weeks gestation is admitted to labor and delivery for induction of labor secondary to 2 vessel umbilical cord. Plan is induction of labor and anticipate normal vaginal delivery. (1) 39 weeks gestation of Status: Acute Code(s): Z3A.39 - 39 WEEKS GESTATION OF SNOMED Code(s): 50370115 (2) Two vessel umbilical cord Status: Acute Code(s): Q27.0 - CONGENITAL ABSENCE AND HYPOPLASIA OF UMBILICAL ARTERY SNOMED Code(s): 753899944 (3) Elective induction of labor planned Status: Acute Code(s): JAY6026 - SNOMED Code(s): 077343424
[2020-09-08] MEDS ORDERED: LIDOCAINE 0.5% (PF) 5 MG/ML (50 ML SDV) SQ PRN (05:54)
[2020-09-08] MEDS ORDERED: TERBUTALINE 1 MG/ML VIAL SQ PRN (05:54)
[2020-09-08] MEDS ORDERED: METHYLERGONOVINE 0.2 MG/ML 1 ML AMP IM PRN (05:54)
[2020-09-08] MEDS ORDERED: OXYTOCIN 30 UNITS/500 ML NS 30 UNIT in SALINE 1 500ML.BAG IV SCH ×2 (05:54→15:09)
[2020-09-08] MEDS ORDERED: OXYTOCIN 10 UNIT/ML 1 ML VIAL IM PRN (05:54)
[2020-09-08] MEDS ORDERED: CARBOPROST TROMETHAMINE 250 MCG/ML 1 ML AMP IM PRN (05:54)
[2020-09-08] MEDS: LACTATED RINGERS 1,000 ML IV SCH ×3 (06:35→12:53)
[2020-09-08 06:45] LABS: Basophils % (A) 0 %; Eosinophils # (A) 0.2 k/uL (0-0.7); Eosinophils % (A) 2 %; HCT 34.2 % (34.0-46.0); HGB 11.1 gm/dL (11.4-16.0); Lymphocytes # (A) 2.8 k/uL (1.0-4.8); Lymphocytes % (A) 25 %; MCH 28.2 pg (25.0-35.0); MCHC 32.5 g/dL (31.0-37.0); MCV 86.8 fL (80.0-100.0); Mean Platelet Volume 7.5; Monocytes # (A) 0.8 k/uL (0-1.0); Monocytes % (A) 7 %; Neutrophils # (A) 7.2 k/uL (1.3-7.7); Neutrophils % (A) 65 %; Platelet Count 334 k/uL (150-450); RBC 3.94 m/uL (3.80-5.40); RDW 14.9 % (11.5-15.5); WBC 11.1 k/uL (3.8-10.6)
[2020-09-08] MEDS ORDERED: SODIUM CHLORIDE 0.9% 100 ML BAG ONE (12:33)
[2020-09-08] MEDS ORDERED: fentaNYL (PF) 50 MCG/ML 5 ML AMP ONE (12:33)
[2020-09-08] MEDS ORDERED: ROPIVACAINE 5MG/ML 20ML VIAL ONE (12:33)
[2020-09-08] MEDS ORDERED: bisacodyL 10 MG SUPP RECTAL PRN (15:09)
[2020-09-08] MEDS ORDERED: ZOLPIDEM 5 MG TAB PO PRN (15:09)
[2020-09-08] MEDS ORDERED: LANOLIN CREAM 5 GM TUBE TOPICAL PRN (15:09)
[2020-09-08] MEDS ORDERED: diphenhydrAMINE 50 MG/ML 1 ML VIAL IVP PRN (15:09)
[2020-09-08] MEDS ORDERED: HYDROCORTISONE 2.5% RECTAL CREAM 30 GM TUBE RECTAL PRN (15:09)
[2020-09-08] MEDS ORDERED: diphenhydrAMINE 25 MG CAP PO PRN (15:09)
[2020-09-08] MEDS ORDERED: BENZOCAINE/MENTHOL SPRAY 1 GM/SPRAY AEROSOL TOPICAL PRN (15:09)
[2020-09-08] MEDS ORDERED: SIMETHICONE 80 MG CHEWABLE PO PRN (15:09)
[2020-09-08] MEDS ORDERED: INFLUENZA VACCINE (6 MOS+) 60 MCG/0.5 ML SYRINGE IM ONE (15:10)
--- NOTE | 2020-09-08 17:42 | P.PROBDLV ---
Vaginal Delivery Note - . Vaginal Delivery Note: Normal vaginal delivery viable male infant Apgars 9 and 9 delivery time is 1449 hrs. Please see dictated H&P for intimate details of this patient's admission. Brief summary is a pleasant 25-year-old 4 para 3 female 39-0/7 weeks gestation admitted to labor and delivery for induction of labor due to two-vessel umbilical cord. Patient is admitted and is 2 cm dilated has artificial rupture membranes for clear fluid. Labor is induced with Pitocin per protocol. Patient's labor progresses and she does get an epidural for pain control. Patient quickly progresses thereafter and gets to complete. She pushes the head to the perineum, the perineum is supported and we have controlled delivery of 's head over the intact perineum. Infant's position is straight occiput anterior. The mouth and nares are bulb suctioned. There is a nuchal cord which is easily reduced. The umbilical cord is then immediately clamped and cut due to history of jaundice. The umbilical cord appears to have 2 vessels. The infant is late on the mother's abdomen. The placenta spontaneously delivered intact. Estimated blood loss is approximately 100 mL. Inspection of perineum shows no laceration and no repairs required. All counts correct 3. There are no complications. Infant and mother are stable in delivery room.
[2020-09-08] MEDS: SENNOSIDES-DOCUSATE SODIUM 1 EACH TAB PO SCH ×2 (17:51→23:26)
[2020-09-08] MEDS: IBUPROFEN 600 MG TAB PO SCH ×2 (17:51→23:26)
[2020-09-09] MEDS: ACETAMINOPHEN TAB 325 MG TAB PO PRN ×2 (01:05→19:27)
--- NOTE | 2020-09-09 06:40 | P.PNOBGVD ---
Subjective - Subjective Patient reports: Reports appetite normal, Reports voiding normally, Reports pain well controlled, Reports ambulating normally : doing well Objective - Latest Vital Signs Latest vital signs: Vital Signs Temp Pulse Resp BP BP 09/09/20 00:00 98.1 F 101 H 18 117/74 09/08/20 20:00 98.7 F 105 H 14 102/54 09/08/20 17:00 97.8 F 120 H 16 154/71 09/08/20 16:30 101 H 16 149/63 09/08/20 16:00 102 H 16 149/70 09/08/20 15:45 97 16 156/67 09/08/20 15:30 97 16 142/67 09/08/20 15:15 94 16 139/78 09/08/20 15:00 98.6 F 100 16 131/67 Intake and Output 09/08/20 09/08/20 09/09/20 14:59 22:59 06:59 Intake Total 1999 176.283 Balance 1999 176.283 Intake: IV 1999 Intake, IV Titration 176.283 Amount Oxytocin 30 Units/500 ml 176.283 Ns 30 unit In Saline 1 500ml.bag @ Per Protocol IV .Q0M [facility] Rx#:[id number] Other: # Voids 1 2 - Exam Lungs: bilateral: normal Chest: Normal S1, Normal S2 Extremities: Present: normal Abdomen: Present: normal appearance, soft Uterus: Present: normal, firm - Labs Labs: Abnormal Lab Results - Last 24 Hours (Table) 09/08/20 Range/Units 06:20 WBC 11.1 H (3.8-10.6) k/uL Hgb 11.1 L (11.4-16.0) gm/dL Assessment and Plan Assessment: day #1. Patient is resting without complaints and wishes to go home. Vital signs are stable she is afebrile. Uterus is firm nontender and she is having normal lochia. My impression this is a normal course. Plan is to continue routine care and discharge home later today (1) 39 weeks gestation of Current Visit: No Status: Acute Code(s): Z3A.39 - 39 WEEKS GESTATION OF SNOMED Code(s): 90621967 (2) Two vessel umbilical cord Current Visit: No Status: Acute Code(s): Q27.0 - CONGENITAL ABSENCE AND HYPOPLASIA OF UMBILICAL ARTERY SNOMED Code(s): 041059550 (3) Elective induction of labor planned Current Visit: No Status: Acute Code(s): PFC0404 - SNOMED Code(s): 297906525
--- NOTE | 2020-09-09 06:45 | P.DS ---
Providers Date of admission: 09/08/20 05:46 Expected date of discharge: 09/09/20 Attending physician: William Foster Primary care physician: Alice Lal - Discharge Diagnosis(es) (1) 39 weeks gestation of Current Visit: No Status: Acute (2) Two vessel umbilical cord Current Visit: No Status: Acute (3) Elective induction of labor planned Current Visit: No Status: Acute Hospital Course: Please see dictated H&P for intimate details of this patient's admission. Brief summary is a pleasant 25-year-old 4 para 3 female 39 weeks gestation admitted to labor and delivery for induction of labor secondary to a 2 vessel umbilical cord. Patient is admitted has uncomplicated induction of labor quickly goes on have a vaginal delivery of viable male . Please see dictated delivery note. day #1 patient without complaints and wishes to go home. Patient's felt stable for discharge home follow up with me in 6 weeks. Procedures: Induction of labor and normal vaginal delivery Patient Condition at Discharge: Good Plan - Discharge Summary New Discharge Prescriptions: New Ibuprofen [Motrin] 600 mg PO Q6H #30 tab No Action Multivitamin [Multivitamins Adult Gummies] 1 tab PO DAILY Discharge Medication List Multivitamin [Multivitamins Adult Gummies] 1 tab PO DAILY 09/08/20 [History] Ibuprofen [Motrin] 600 mg PO Q6H #30 tab 09/09/20 [Rx] Follow up Appointment(s)/Referral(s): William Foster MD [STAFF PHYSICIAN] - 10/18/20 10:15 am Patient Instructions/Handouts: Vaginal Delivery (DC) Activity/Diet/Wound Care/Special Instructions: No intercourse or anything per vagina for 6 weeks. Please call if any fever, chills, excessive vaginal bleeding, and/or abdominal pain. Discharge Disposition: HOME SELF-CARE
[2020-09-09] MEDS: IBUPROFEN 600 MG TAB PO SCH ×4 (07:43→23:32)
[2020-09-09] MEDS: SENNOSIDES-DOCUSATE SODIUM 1 EACH TAB PO SCH ×2 (07:44→19:27)
[2020-09-10] MEDS: IBUPROFEN 600 MG TAB PO SCH ×2 (06:11→08:34)
[2020-09-10] MEDS: SENNOSIDES-DOCUSATE SODIUM 1 EACH TAB PO SCH (08:35)
--- NOTE | 2020-09-10 08:37 | P.DS ---
Providers Date of admission: 09/08/20 05:46 Expected date of discharge: 09/10/20 Attending physician: William Foster Primary care physician: Alice Guthrie [facility] Course: Patient is doing very well. Baby had to stay due to bilirubin therefore she stayed but she'll be discharged home in stable and satisfactory condition today. No additional changes are needed to the discharge summary. Patient Condition at Discharge: Good Plan - Discharge Summary New Discharge Prescriptions: New Ibuprofen [Motrin] 600 mg PO Q6H #30 tab No Action Multivitamin [Multivitamins Adult Gummies] 1 tab PO DAILY Discharge Medication List Multivitamin [Multivitamins Adult Gummies] 1 tab PO DAILY 09/08/20 [History] Ibuprofen [Motrin] 600 mg PO Q6H #30 tab 09/09/20 [Rx] Follow up Appointment(s)/Referral(s): William Foster MD [STAFF PHYSICIAN] - 10/18/20 10:15 am Patient Instructions/Handouts: Vaginal Delivery (DC) Activity/Diet/Wound Care/Special Instructions: No intercourse or anything per vagina for 6 weeks. Please call if any fever, chills, excessive vaginal bleeding, and/or abdominal pain. Discharge Disposition: HOME SELF-CARE
[2020-09-10 08:45] VITALS: BP 122/67; PULSE 94; RESP 18; TEMP 97.8
== END 2020-09-10 16:05 | disposition home or self-care (01) | DRG 807 ==
LOC: 4FBP 05:46
PROVIDERS: ADMIT Obstetrics & Gynecology; ATTEND Obstetrics & Gynecology
PROC: 10E0XZZ Delivery of Products of Conception, External Approach (ICD-10-PCS; principal; 2020-09-08)
PROC: 10907ZC Drainage of Amniotic Fluid, Therapeutic from Products of Conception, Via Natural or Artificial Opening (ICD-10-PCS; principal; 2020-09-08)
PROC: 00HU33Z Insertion of Infusion Device into Spinal Canal, Percutaneous Approach (ICD-10-PCS; principal; 2020-09-08)
PROC: 3E0R3BZ Introduction of Anesthetic Agent into Spinal Canal, Percutaneous Approach (ICD-10-PCS; principal; 2020-09-08)
PROC: 3E033VJ Introduction of Other Hormone into Peripheral Vein, Percutaneous Approach (ICD-10-PCS; principal; 2020-09-08)
PROC: 3E02340 Introduction of Influenza Vaccine into Muscle, Percutaneous Approach (ICD-10-PCS; 2020-09-08)
DX: O69.89X0 Labor and delivery complicated by other cord complications, not applicable or unspecified (principal); Z37.0 Single live birth; O99.344 Other mental disorders complicating childbirth; F90.9 Attention-deficit hyperactivity disorder, unspecified type; O69.81X0 Labor and delivery complicated by cord around neck, without compression, not applicable or unspecified; Z3A.39 39 weeks gestation of pregnancy; Z79.899 Other long term (current) drug therapy; Z23 Encounter for immunization; Z86.19 Personal history of other infectious and parasitic diseases
CPT/HCPCS: 85025; 86850; 86900; 86901; 90471; 90686

== ENCOUNTER 2021-07-30 10:44 | Emergency (ER) | payer OTHER ==
[2021-07-30 11:08] VITALS: TEMP 98.9
[2021-07-30] MEDS ORDERED: SODIUM CHLORIDE 0.9% 500 ML 500 ML IV STA (11:16)
[2021-07-30] MEDS ORDERED: SODIUM CHLORIDE 0.9% 1,000 ML IV STA (11:16)
[2021-07-30] MEDS ORDERED: ONDANSETRON 4 MG/2 ML VIAL IVP STA (11:16)
[2021-07-30] MEDS ORDERED: KETOROLAC 15 MG/ML 1 ML VIAL IVP STA (11:16)
[2021-07-30 11:29] LABS: Basophils % (A) 1 %; Eosinophils # (A) 0.1 k/uL (0-0.7); Eosinophils % (A) 2 %; HCT 43.3 % (34.0-46.0); HGB 13.5 gm/dL (11.4-16.0); Lymphocytes # (A) 2.2 k/uL (1.0-4.8); Lymphocytes % (A) 35 %; MCH 27.7 pg (25.0-35.0); MCHC 31.2 g/dL (31.0-37.0); MCV 88.8 fL (80.0-100.0); Mean Platelet Volume 7.5; Monocytes # (A) 0.4 k/uL (0-1.0); Monocytes % (A) 7 %; Neutrophils # (A) 3.3 k/uL (1.3-7.7); Neutrophils % (A) 52 %; Platelet Count 250 k/uL (150-450); RBC 4.88 m/uL (3.80-5.40); RDW 13.4 % (11.5-15.5); WBC 6.3 k/uL (3.8-10.6)
[2021-07-30 11:39] LABS: ALT 31 U/L (4-34); AST 32 U/L (14-36); African American GFR (CKD) >90 (>60 ml/min/1.73 sqM); Albumin 4.3 g/dL (3.5-5.0); Alkaline Phosphatase 37 U/L (38-126); Anion Gap 7 mmol/L; Blood Urea Nitrogen 11 mg/dL (7-17); Calcium 9.2 mg/dL (8.4-10.2); Carbon Dioxide 22 mmol/L (22-30); Chloride 110 mmol/L (98-107); Glucose 96 mg/dL (74-99); Lipase 63 U/L (23-300); Non-African American GFR(CKD) >90 (>60 ml/min/1.73 sqM); Potassium 4.2 mmol/L (3.5-5.1); Sodium 139 mmol/L (137-145); Total Bilirubin 0.6 mg/dL (0.2-1.3); Total Protein 7.6 g/dL (6.3-8.2)
[2021-07-30 12:29] LABS: Appearance,Urine Cloudy (Clear); Bilirubin,Urine Negative (Negative); Blood,Urine Large (Negative); Calcium Oxalate Crystals,Urine Occasional /hpf; Color,Urine Yellow; Glucose,Urine (UA) Negative (Negative); Ketones,Urine Negative (Negative); Leukocyte Esterase,Urine Small (Negative); Mucus,Urine Many /hpf; Nitrite,Urine Negative (Negative); PH, Urine 5.5 (5.0-8.0); Protein,Urine Trace (Negative); RBC,Urine 1 /hpf (0-5); Specific Gravity,Urine 1.035 (1.001-1.035); Squamous Epithelial Cell,Urine 10 /hpf (0-4); WBC,Urine 3 /hpf (0-5)
--- NOTE | 2021-07-30 13:02 | CT ---
EXAMINATION TYPE: CT abdomen pelvis w con DATE OF EXAM: 07/30/2021 COMPARISON: Ultrasound 12/26/2016 HISTORY: RLQ pain, nausea, vomiting CT DLP: 1110.1 mGycm Automated exposure control for dose reduction was used. TECHNIQUE: Helical acquisition of images was performed from the lung bases through the pelvis. CONTRAST: Performed without Oral Contrast and with IV Contrast, patient injected with 100 mL of Isovue 300. FINDINGS: LUNG BASES: 1 cm pleural-based nodule at the left base. LIVER/GB: Noncirrhotic morphology. No ductal dilatation. Cholecystectomy. PANCREAS: No significant abnormality is seen. SPLEEN: Upper limit of normal measuring up to 14 cm coronally likely related to the patient's youth. ADRENALS: No significant abnormality is seen. KIDNEYS: No significant abnormality is seen. Excretion of contrast on delayed images. FREE AIR: No free air is visualized. RETROPERITONEAL ADENOPATHY: None visualized REPRODUCTIVE ORGANS: 4.4 cm hypodense structure in the right adnexa. URINARY BLADDER: No significant abnormality is seen. PELVIC ADENOPATHY: None visualized. OSSEOUS STRUCTURES: No significant abnormality is seen. BOWEL: Stomach is distended with contents. No dilated loops of bowel. The appendix is unremarkable. OTHER: Fat-containing umbilical hernia. IMPRESSION: 1. NO ACUTE PROCESS IN THE ABDOMEN OR PELVIS. 2. A 4 CM HYPODENSE STRUCTURE IN THE RIGHT ADNEXA IS FAVORED TO REPRESENT AN OVARIAN CYST. CORRELATE WITH ULTRASOUND IF CLINICALLY WARRANTED. 3. There is a 1 cm, pleural-based nodule at the left base. Follow-up with dedicated chest imaging.
[2021-07-30 13:07] VITALS: RESP 18
--- NOTE | 2021-07-30 13:26 | ED ---
Abdominal Pain HPI - General Chief Complaint: Abdominal Pain Stated Complaint: Severe Abd.Pain,Diarrhea,Urg.Care Sent Pt In. Time Seen by Provider: 07/30/21 11:08 Source: patient, RN notes reviewed Mode of arrival: ambulatory Limitations: no limitations - History of Present Illness Initial Comments: This is a 26-year-old female presents to the emergency Department with chief complaint of abdominal pain. Patient states pain started last day or so she's describing the right lower quadrant. 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 Patient states that she was sent over evaluation for probable appendicitis. Patient had prior cholecystectomy denies any chance no dysuria no hematuria denies any melena or hematochezia. Patient has no chest pain or cough or cold-like symptoms. - Related Data Previous Rx's Medication Instructions Recorded Ibuprofen [Motrin] 600 mg PO Q8HR PRN #20 tab 07/30/21 Allergies Allergy/AdvReac Type Severity Reaction Status Date / Time No Known Allergies Allergy Verified 07/30/21 11:27 Review of Systems ROS Statement: Those systems with pertinent positive or pertinent negative responses have been documented in the HPI. ROS Other: All systems not noted in ROS Statement are negative. Past Medical History Past Medical History: No Reported History Additional Past Medical History / Comment(s): Frequent tonsilitis. Obstetric history: She's had 2 previous vaginal deliveries. She's had care with this with Dr. Foster. Blood type is A+, abs negative, rubella immune, hep is B-, GBS negative, HIV nonreactive, RPR nonreactive. History of Any Multi-Drug Resistant Organisms: None Reported Past Surgical History: Cholecystectomy Additional Past Surgical History / Comment(s): Gum surgery. Past Anesthesia/Blood Transfusion Reactions: No Reported Reaction Past Psychological History: ADD/ADHD Smoking Status: Never smoker Past Alcohol Use History: Occasional Past Drug Use History: None Reported - Past Family History Father History Unknown: Yes Family Medical History: Unable to Obtain Additional Family Medical History / Comment(s): pt is adopted. no hx available General Exam Limitations: no limitations General appearance: alert, in no apparent distress Head exam: Present: atraumatic, normocephalic, normal inspection Eye exam: Present: normal appearance, PERRL, EOMI. Absent: scleral icterus, conjunctival injection, periorbital swelling ENT exam: Present: normal exam, normal oropharynx, mucous membranes moist Neck exam: Present: normal inspection, full ROM. Absent: tenderness, meningismus, lymphadenopathy Respiratory exam: Present: normal lung sounds bilaterally. Absent: respiratory distress, wheezes, rales, rhonchi, stridor Cardiovascular Exam: Present: regular rate, normal rhythm, normal heart sounds. Absent: systolic murmur, diastolic murmur, rubs, gallop, clicks GI/Abdominal exam: Present: soft, tenderness, normal bowel sounds. Absent: distended, guarding, rebound, rigid Back exam: Absent: CVA tenderness (R), CVA tenderness (L) Neurological exam: Present: alert Skin exam: Present: warm, dry, intact, normal color. Absent: rash Course Vital Signs 07/30/21 07/30/21 11:05 13:06 Temperature 98.9 F Pulse Rate 87 79 Respiratory 16 18 Rate Blood Pressure 118/77 119/85 O2 Sat by Pulse 97 95 Oximetry Medical Decision Making - Medical Decision Making Labs urinalysis CT REVIEWED. PATIENT HAS OVARIAN CYSTS IN THE RIGHT CAUSING HER DISCOMFORT. NO EVIDENCE OF TORSION. PATIENT DISCHARGED IN STABLE CONDITION RETURN PARAMETERS WERE DISCUSSED. - Lab Data Result diagrams: 07/30/21 11:20 07/30/21 11:20 Lab Results 07/30/21 07/30/21 07/30/21 Range/Units 11:20 11:20 11:20 WBC 6.3 (3.8-10.6) k/uL RBC 4.88 (3.80-5.40) m/uL Hgb 13.5 (11.4-16.0) gm/dL Hct 43.3 (34.0-46.0) % MCV 88.8 (80.0-100.0) fL MCH 27.7 (25.0-35.0) pg MCHC 31.2 (31.0-37.0) g/dL RDW 13.4 (11.5-15.5) % Plt Count 250 (150-450) k/uL MPV 7.5 Neutrophils % 52 % Lymphocytes % 35 % Monocytes % 7 % Eosinophils % 2 % Basophils % 1 % Neutrophils # 3.3 (1.3-7.7) k/uL Lymphocytes # 2.2 (1.0-4.8) k/uL Monocytes # 0.4 (0-1.0) k/uL Eosinophils # 0.1 (0-0.7) k/uL Basophils # 0.0 (0-0.2) k/uL Sodium 139 (137-145) mmol/L Potassium 4.2 (3.5-5.1) mmol/L Chloride 110 H (98-107) mmol/L Carbon Dioxide 22 (22-30) mmol/L Anion Gap 7 mmol/L BUN 11 (7-17) mg/dL Creatinine 0.83 (0.52-1.04) mg/dL Est GFR (CKD-EPI)AfAm >90 (>60 ml/min/1.73 sqM) Est GFR (CKD-EPI)NonAf >90 (>60 ml/min/1.73 sqM) Glucose 96 (74-99) mg/dL Plasma Lactic Acid Fasrhad 0.6 L (0.7-2.0) mmol/L Calcium 9.2 (8.4-10.2) mg/dL Total Bilirubin 0.6 (0.2-1.3) mg/dL AST 32 (14-36) U/L ALT 31 (4-34) U/L Alkaline Phosphatase 37 L (38-126) U/L Total Protein 7.6 (6.3-8.2) g/dL Albumin 4.3 (3.5-5.0) g/dL Lipase 63 (23-300) U/L Urine Color Urine Appearance (Clear) Urine pH (5.0-8.0) Ur Specific [place] (1.001-1.035) Urine Protein (Negative) Urine Glucose (UA) (Negative) Urine Ketones (Negative) Urine Blood (Negative) Urine Nitrite (Negative) Urine Bilirubin (Negative) Urine Urobilinogen (<2.0) mg/dL Ur Leukocyte Esterase (Negative) Urine RBC (0-5) /hpf Urine WBC (0-5) /hpf Ur Squamous Epith Cells (0-4) /hpf Calcium Oxalate Crystal (None) /hpf Urine Mucus (None) /hpf Urine HCG, Qual (Not Detectd) 07/30/21 07/30/21 Range/Units 12:12 12:12 WBC (3.8-10.6) k/uL RBC (3.80-5.40) m/uL Hgb (11.4-16.0) gm/dL Hct (34.0-46.0) % MCV (80.0-100.0) fL MCH (25.0-35.0) pg MCHC (31.0-37.0) g/dL RDW (11.5-15.5) % Plt Count (150-450) k/uL MPV Neutrophils % % Lymphocytes % % Monocytes % % Eosinophils % % Basophils % % Neutrophils # (1.3-7.7) k/uL Lymphocytes # (1.0-4.8) k/uL Monocytes # (0-1.0) k/uL Eosinophils # (0-0.7) k/uL Basophils # (0-0.2) k/uL Sodium (137-145) mmol/L Potassium (3.5-5.1) mmol/L Chloride (98-107) mmol/L Carbon Dioxide (22-30) mmol/L Anion Gap mmol/L BUN (7-17) mg/dL Creatinine (0.52-1.04) mg/dL Est GFR (CKD-EPI)AfAm (>60 ml/min/1.73 sqM) Est GFR (CKD-EPI)NonAf (>60 ml/min/1.73 sqM) Glucose (74-99) mg/dL Plasma Lactic Acid Farshad (0.7-2.0) mmol/L Calcium (8.4-10.2) mg/dL Total Bilirubin (0.2-1.3) mg/dL AST (14-36) U/L ALT (4-34) U/L Alkaline Phosphatase (38-126) U/L Total Protein (6.3-8.2) g/dL Albumin (3.5-5.0) g/dL Lipase (23-300) U/L Urine Color Yellow Urine Appearance Cloudy H (Clear) Urine pH 5.5 (5.0-8.0) Ur Specific [place] 1.035 (1.001-1.035) Urine Protein Trace H (Negative) Urine Glucose (UA) Negative (Negative) Urine Ketones Negative (Negative) Urine Blood Large H (Negative) Urine Nitrite Negative (Negative) Urine Bilirubin Negative (Negative) Urine Urobilinogen 2.0 (<2.0) mg/dL Ur Leukocyte Esterase Small H (Negative) Urine RBC 1 (0-5) /hpf Urine WBC 3 (0-5) /hpf Ur Squamous Epith Cells 10 H (0-4) /hpf Calcium Oxalate Crystal Occasional H (None) /hpf Urine Mucus Many H (None) /hpf Urine HCG, Qual Not Detected (Not Detectd) Disposition Clinical Impression: Ovarian cyst, right Disposition: HOME SELF-CARE Condition: Stable Instructions (If sedation given, give patient instructions): Ovarian Cyst (ED) Additional Instructions: Please return to the Emergency Department if symptoms worsen or any other concerns. Prescriptions: Ibuprofen [Motrin] 600 mg PO Q8HR PRN #20 tab PRN Reason: Pain Is patient prescribed a controlled substance at d/c from ED?: No Referrals: Alice Lal DO [Primary Care Provider] - 1-2 days Time of Disposition: 14:05
--- NOTE | 2021-07-30 13:59 | US ---
EXAMINATION TYPE: US pelvic complete DATE OF EXAM: 07/30/2021 COMPARISON: CT CLINICAL HISTORY: pain. EC patient with RLQ pain and right back pain x 2 days; ; right adnexal ma ss per CT TECHNIQUE: Transabdominal (TA). Transabdominal sonographic images of the pelvis were acquired. Date of LMP: 07/08/2021 EXAM MEASUREMENTS: Uterus: 7.8 x 5.5 x 4.5 cm Endometrial Stripe: 0.6 cm Right Ovary: 5.3 x 3.9 x 3.1 cm Left Ovary: 1.8 x 2.0 x 2.4 cm 1. Uterus: Anteverted wnl 2. Endometrium: thickness appears wnl for Day 23 LMP 3. Right Ovary: enlarged ovary with large, simple ovarian cyst = 4.6 x 2.5 x 2.5cm 4. Left Ovary: multiple small follicles noted Spectral, color and Pulse Waveform Doppler imaging shows good arterial and venous flow within the o varies; there is no evidence for ovarian torsion. 5. Bilateral Adnexa: wnl 6. Posterior cul-de-sac: wnl IMPRESSION: 1. Homogeneous uterine myometrium with normal endometrial thickness. 2. Simple appearing, 4.6 cm right ovarian cyst. No evidence of ovarian torsion. 3. Unremarkable left ovary. 4. Power grayscale, color and power Doppler images of the bilateral ovaries were obtained. 5. Arterial inflow and venous outflow demonstrated in both ovaries.
[2021-07-30] MEDS ORDERED: ACET/COD 300 MG/30 MG STARTER PACK 6 TAB BTL PO STA (14:05)
[2021-07-30 14:25] VITALS: BP 113/66; PULSE 82
== END 2021-07-30 14:25 | disposition home or self-care (01) ==
LOC: EC 10:44
DX: N83.201 Unspecified ovarian cyst, right side (principal); F90.9 Attention-deficit hyperactivity disorder, unspecified type; Z90.49 Acquired absence of other specified parts of digestive tract
CPT/HCPCS: 99284; 96374; 96375; 96361; 36415; 80053; 83605; 83690; 85025; 81001; 81025; 93975; 76856; 74177; J2405; J1885; Q9967

== ENCOUNTER 2023-03-18 18:06 | Inpatient (IN) | payer OTHER ==
[2023-03-18] MEDS: LACTATED RINGERS 1,000 ML IV SCH (18:51)
[2023-03-18 19:06] VITALS: RESP 16
--- NOTE | 2023-03-18 19:12 | P.HPOB ---
History of Present Illness H&P Date: 03/18/23 Chief Complaint: Lower back pain, fever This patient is a pleasant 27-year-old 5 para 4 female estimated date of confinement 08/02/2023 estimated gestational age 20-3/7 weeks gestation who states she began having lower back pain Bruce evening. Patient was also having urinary urgency and fevers at home. Patient subsequently went to [facility] earlier today and evaluation there showed a urinalysis consistent with a urinary tract infection/pyelonephritis. Patient also had a renal and bladder ultrasound which were normal. Patient denies any vaginal bleeding. Patient's has been otherwise uncomplicated. Patient did have intercourse last evening. Review of Systems Constitutional: Reports as per HPI, Reports fever Genitourinary: Reports as per HPI, Reports Menstruation: Reports amenorrhea Past Medical History Past Medical History: No Reported History Additional Past Medical History / Comment(s): Patient's had 4 previous vaginal deliveries term History of Any Multi-Drug Resistant Organisms: None Reported Past Surgical History: Cholecystectomy Additional Past Surgical History / Comment(s): Gum surgery. Past Anesthesia/Blood Transfusion Reactions: No Reported Reaction Past Psychological History: No Psychological Hx Reported Smoking Status: Never smoker Past Alcohol Use History: None Reported Past Drug Use History: None Reported - Past Family History Father History Unknown: Yes Family Medical History: Unable to Obtain Additional Family Medical History / Comment(s): pt is adopted. no hx available Medications and Allergies Home Medications Medication Instructions Recorded Confirmed Type Vit No.179/Iron/Folic 1 each PO DAILY 03/18/23 03/18/23 History [ Tablet] Allergies Allergy/AdvReac Type Severity Reaction Status Date / Time No Known Allergies Allergy Verified 03/18/23 18:21 Exam Vital Signs Temp Pulse Resp BP 03/18/23 18:53 98.5 F 115 H 16 128/68 Intake and Output 03/18/23 03/18/23 03/18/23 06:59 14:59 22:59 Other: Weight 88.904 kg - OBG Physical Exam Abdomen: bowel sounds normal, no diffuse tenderness, no bruit present, no guarding noted, no hepatomegaly, no splenomegaly, no mass Patient localizes her pain to bilateral lower flanks Results Review of her records from the outside hospital shows a white count of 11.2. Urinalysis shows 50-100 WBCs and 2+ bacteria. Assessment and Plan Assessment: This is a pleasant 27-year-old 5 para 4 female 20-3/7 weeks gestation with clinical symptoms and urinalysis consistent with pyelonephritis. Plan is to continue IV hydration, IV antibiotics, check a CBC and metabolic panel, and repeat urinalysis. Patient has already been given a dose of ceftriaxone an outside hospital. (1) 20 weeks gestation of Current Visit: Yes Status: Acute Code(s): Z3A.20 - 20 WEEKS GESTATION OF SNOMED Code(s): 71373750 (2) Pyelonephritis affecting Current Visit: Yes Status: Acute Code(s): O23.00 - INFECTIONS OF KIDNEY IN , UNSPECIFIED TRIMESTER SNOMED Code(s): 56842623076279
[2023-03-18 19:31] LABS: Appearance,Urine Cloudy (Clear); Bilirubin,Urine Negative (Negative); Blood,Urine Trace (Negative); Color,Urine Light Yellow; Glucose,Urine (UA) Negative (Negative); Ketones,Urine Negative (Negative); Leukocyte Esterase,Urine Large (Negative); Mucus,Urine Rare /hpf; Nitrite,Urine Negative (Negative); Protein,Urine 1+ (Negative); RBC,Urine 7 /hpf (0-5); Specific Gravity,Urine 1.017 (1.001-1.035); Squamous Epithelial Cell,Urine 1 /hpf (0-4); Urobilinogen,Urine <2.0 mg/dL (<2.0); WBC,Urine >182 /hpf (0-5)
[2023-03-18 20:11] LABS: Basophils % (A) 0 %; Eosinophils # (A) 0.1 k/uL (0-0.7); Eosinophils % (A) 1 %; HCT 34.6 % (34.0-46.0); HGB 11.7 gm/dL (11.4-16.0); Lymphocytes # (A) 1.2 k/uL (1.0-4.8); Lymphocytes % (A) 11 %; MCH 30.1 pg (25.0-35.0); MCHC 33.8 g/dL (31.0-37.0); Mean Platelet Volume 7.9; Monocytes # (A) 0.6 k/uL (0-1.0); Monocytes % (A) 6 %; Neutrophils # (A) 8.7 k/uL (1.3-7.7); Neutrophils % (A) 82 %; Platelet Count 237 k/uL (150-450); RBC 3.89 m/uL (3.80-5.40); RDW 13.6 % (11.5-15.5); WBC 10.7 k/uL (3.8-10.6)
[2023-03-18 20:19] LABS: ALT 13 U/L (4-34); AST 18 U/L (14-36); African American GFR (CKD) >90 (>60 ml/min/1.73 sqM); Albumin 3.2 g/dL (3.5-5.0); Alkaline Phosphatase 29 U/L (38-126); Anion Gap 4 mmol/L; Blood Urea Nitrogen 5 mg/dL (7-17); Calcium 8.7 mg/dL (8.4-10.2); Carbon Dioxide 23 mmol/L (22-30); Chloride 106 mmol/L (98-107); Glucose 86 mg/dL (74-99); Non-African American GFR(CKD) >90 (>60 ml/min/1.73 sqM); Potassium 3.7 mmol/L (3.5-5.1); Sodium 133 mmol/L (137-145); Total Bilirubin 0.5 mg/dL (0.2-1.3)
[2023-03-18] MEDS: ACETAMINOPHEN TAB 325 MG TAB PO PRN (21:03)
[2023-03-19] MEDS: ACETAMINOPHEN TAB 325 MG TAB PO PRN ×6 (02:14→21:58)
[2023-03-19] MEDS: LACTATED RINGERS 1,000 ML IV SCH ×5 (02:15→21:58)
--- NOTE | 2023-03-19 06:48 | P.PN ---
Progress Note - Text Progress Note Date: 03/19/23 Hospital day #2. Patient is 20-4/7 weeks gestation. Vital signs are stable she's afebrile. Patient still having back pain and is taking Tylenol for this. Urine culture is pending however this culture was done after receiving a dose of antibiotics an outside hospital. Plan today is to continue IV hydration, IV antibiotics, recheck CBC.
[2023-03-19 07:43] LABS: Basophils % (A) 0 %; Eosinophils # (A) 0.1 k/uL (0-0.7); Eosinophils % (A) 1 %; HCT 30.6 % (34.0-46.0); HGB 10.4 gm/dL (11.4-16.0); Lymphocytes # (A) 2.1 k/uL (1.0-4.8); Lymphocytes % (A) 20 %; MCH 29.9 pg (25.0-35.0); MCHC 33.8 g/dL (31.0-37.0); MCV 88.4 fL (80.0-100.0); Mean Platelet Volume 7.7; Monocytes # (A) 0.7 k/uL (0-1.0); Monocytes % (A) 6 %; Neutrophils # (A) 7.4 k/uL (1.3-7.7); Neutrophils % (A) 71 %; Platelet Count 217 k/uL (150-450); RBC 3.47 m/uL (3.80-5.40); RDW 13.6 % (11.5-15.5); WBC 10.5 k/uL (3.8-10.6)
[2023-03-20] MEDS: LACTATED RINGERS 1,000 ML IV SCH ×2 (00:11→06:59)
[2023-03-20] MEDS: ACETAMINOPHEN TAB 325 MG TAB PO PRN ×2 (04:56→09:53)
--- NOTE | 2023-03-20 05:38 | P.PN ---
Progress Note - Text Progress Note Date: 03/20/23 Hospital day #3. Patient was feeling better however her pain returned this morning. She is 20-5/7 weeks' gestation. CBC yesterday was normal. Urine culture is still pending. Plan at this time is to continue IV antibiotics, await urine culture results, and continue observation. We'll reevaluate later today.
[2023-03-20 07:06] VITALS: BP 93/58; PULSE 88; TEMP 98.2
--- NOTE | 2023-03-20 11:58 | P.PN ---
Progress Note - Text Progress Note Date: 03/20/23 The risks is feeling better this afternoon. Vital signs are stable she is afebrile. Urine culture is negative. At this point it is evident she is able to be discharged home on oral antibiotics follow up with me in 1 week.
--- NOTE | 2023-03-20 12:02 | P.DS ---
Providers Date of admission: 03/18/23 18:46 Expected date of discharge: 03/20/23 Attending physician: William Foster Primary care physician: Stated None - Discharge Diagnosis(es) (1) 20 weeks gestation of Current Visit: Yes Status: Acute (2) Pyelonephritis affecting Current Visit: Yes Status: Acute Hospital Course: Please see dictated H&P for intimate details of this patient's admission. Brief summary is a 27-year-old 5 para 4 female at 20-1/2 weeks gestation transferred from [facility] secondary to suspected pyelonephritis patient is given IV Ancef then urine culture is negative. Patient on hospital day #3 is feeling better and felt to be stable for discharge home on oral antibiotics. Patient Condition at Discharge: Good Plan - Discharge Summary New Discharge Prescriptions: New Cephalexin [Keflex] 500 mg PO Q6HR 1 Days #28 cap No Action Vit No.179/Iron/Folic [ Tablet] 1 each PO DAILY Discharge Medication List Vit No.179/Iron/Folic [ Tablet] 1 each PO DAILY 03/18/23 [History] Cephalexin [Keflex] 500 mg PO Q6HR 1 Days #28 cap 03/20/23 [Rx] Follow up Appointment(s)/Referral(s): William Foster MD [STAFF PHYSICIAN] - 1 Week Patient Instructions/Handouts: Urinary Tract Infection in Women (DC) Activity/Diet/Wound Care/Special Instructions: Please take antibiotics as prescribed and increase fluids is discussed. Discharge Disposition: HOME SELF-CARE
--- NOTE | 2023-03-21 06:48 | P.MSEPDOC ---
Presenting Problems - Arrival Data Date of Arrival on Unit: 03/18/23 Time of Arrival on Unit: 18:05 Mode of Transport: EMS - Complaint OB-Reason for Admission/Chief Complaint: Pain Comment: Flank pain, patient evaluated in the ER at [facility] told she had pyleonephritis. Patient transported by EMS Medical History - Information : 5 Para: 4 Term: 4 : 0 Abortions: Spontaneous or Elective: 0 Number of Living Children: 4 - Gestational Age Gestational Age by ABHIJEET (wks/days): 20 Weeks and 3 Days Review of Systems - Review of Systems Constitutional: No problems Breast: No problems ENT: No problems Cardiovascular: No problems Respiratory: No problems Gastrointestinal: No problems Genitourinary: No problems Musculoskeletal: No problems Neurological: No problems Skin: No problems Vital Signs - Temperature Temperature: 98.2 F Temperature Source: Oral - Pulse Pulse Oximetery Pulse Rate: 88 Pulse Assessment Method: Auscultation - Respirations Respiratory Rate: 16 Oxygen Delivery Method: Room Air O2 Sat by Pulse Oximetry: 99 - Blood Pressure Sitting Blood Pressure: 93/58 Blood Pressure Mean: 69 Blood Pressure Source: Automatic Cuff Medical Screen Scoring - Uterine Contractions Resting: Soft to palpation - Assessment - Baby A Baseline FHR: 160 Heart Rate - NICHD Category: Category I (Normal) Physician Notification - Physician Notified Physician Notified Date: 03/18/23 Physician Notified Time: 18:35 Physician: William Foster New Order Received: Yes - Notification Comment Comment: Orders given to admit patient for iv fluids and iv antibiotics at this time. Orders given to administer LR at 150/hr and ancepf 2 grams now and then 1 gram every 8 hours after that ivpb. Patient may eat food. Monitor I&O. Collect and send CBC/CMP/UA and culture. Physician coming in to evaluate patient at the bedside. Maternal Triage Index - Urgent/Priority 2 Urgent Priority 2: Yes Provider Notified: William Foster Provider Notified Time: 18:35 Criteria Met for Priority 2: 20 3/7 weeks, Patient presents from [facility] ER where she was diagnosed with pyleonephritis, patient was an EMS transfer to Triage. Patient presents with intermittent lower back pain that radiates to the lower abdomen/pelvic area x2 days. Patient states she has had a fever over the weekend. Patient reports nausea and pain 6/7 out of 10. Disposition - Disposition OB Disposition: LDRP Suite Transferred to:: Suite 13 I agree with the RN Medical Screening Exam: Yes Case reviewed; plan agreed upon as documented in EMR&OBIX.: Yes Diagnosis: LOW BACK PAIN, UNSPECIFIED
== END 2023-03-20 13:15 | disposition home or self-care (01) | DRG 566 ==
LOC: FBPOP 18:06 → INTOOBSV 18:46 → OBSVTOIN 18:46 → 4FBP 18:46
PROVIDERS: ADMIT Obstetrics & Gynecology; ATTEND Obstetrics & Gynecology
DX: O23.02 Infections of kidney in pregnancy, second trimester (principal); Z3A.20 20 weeks gestation of pregnancy; Z28.310 Unvaccinated for COVID-19; Z79.899 Other long term (current) drug therapy
CPT/HCPCS: 80053; 81001; 85025; 87086; 99213

== ENCOUNTER 2023-06-16 02:21 | Outpatient (CLI) | payer OTHER ==
[2023-06-16 02:53] LABS: Amorphous Sediment,Urine Moderate /hpf; Appearance,Urine Cloudy (Clear); Bilirubin,Urine Negative (Negative); Blood,Urine Negative (Negative); Color,Urine Yellow; Glucose,Urine (UA) Negative (Negative); Ketones,Urine Negative (Negative); Leukocyte Esterase,Urine Small (Negative); Mucus,Urine Few /hpf; Nitrite,Urine Negative (Negative); PH, Urine 6.5 (5.0-8.0); Protein,Urine Trace (Negative); RBC,Urine 1 /hpf (0-5); Specific Gravity,Urine 1.024 (1.001-1.035); Squamous Epithelial Cell,Urine 8 /hpf (0-4); WBC,Urine 7 /hpf (0-5)
[2023-06-16 03:11] LABS: Basophils # (A) 0.1 k/uL (0-0.2); Basophils % (A) 1 %; Eosinophils # (A) 0.1 k/uL (0-0.7); Eosinophils % (A) 2 %; HCT 34.7 % (34.0-46.0); HGB 11.6 gm/dL (11.4-16.0); Lymphocytes # (A) 0.9 k/uL (1.0-4.8); Lymphocytes % (A) 9 %; MCH 29.1 pg (25.0-35.0); MCHC 33.5 g/dL (31.0-37.0); MCV 86.9 fL (80.0-100.0); Mean Platelet Volume 7.8; Monocytes # (A) 0.5 k/uL (0-1.0); Monocytes % (A) 6 %; Neutrophils # (A) 7.7 k/uL (1.3-7.7); Neutrophils % (A) 82 %; Platelet Count 227 k/uL (150-450); RBC 3.99 m/uL (3.80-5.40); RDW 13.4 % (11.5-15.5); WBC 9.4 k/uL (3.8-10.6)
[2023-06-16] MEDS: ACETAMINOPHEN TAB 325 MG TAB PO STA (03:18)
[2023-06-16 04:59] VITALS: BP 136/78; PULSE 116; RESP 16; TEMP 97.7
--- NOTE | 2023-08-22 07:56 | P.MSEPDOC ---
Presenting Problems - Arrival Data Date of Arrival on Unit: 06/16/23 Time of Arrival on Unit: 02:21 Mode of Transport: Ambulatory - Complaint OB-Reason for Admission/Chief Complaint: Pain Comment: patient presents to triage with complaints of bilateral flank pain rating 3/10 and complaining of a runny nose and ear pain since yesterday. Medical History - Information : 5 Para: 4 Term: 4 - Gestational Age Gestational Age by ABHIJEET (wks/days): 33 Weeks and 2 Days Review of Systems - Review of Systems Constitutional: No problems Breast: No problems ENT: No problems Cardiovascular: No problems Respiratory: No problems Gastrointestinal: No problems Genitourinary: No problems Musculoskeletal: No problems Neurological: No problems Skin: No problems Vital Signs - Temperature Temperature: 97.7 F Temperature Source: Temporal Artery Scan - Pulse Pulse Oximetery Pulse Rate: 116 Pulse Assessment Method: Pulse Oximetry - Respirations Respiratory Rate: 16 Oxygen Delivery Method: Room Air O2 Sat by Pulse Oximetry: 98 - Blood Pressure Right Arm Blood Pressure: 136/78 Blood Pressure Mean: 97 Blood Pressure Source: Automatic Cuff Physician Notification - Physician Notified Physician Notified Date: 06/16/23 Physician Notified Time: 03:55 Physician: Ting Del Real Maternal Triage Index - Maternal Triage Index Presenting for scheduled procedure w/no complaint: No - Stat/Priority 1 Stat Priority 1: No - Urgent/Priority 2 Urgent Priority 2: Yes Provider Notified: Ting Del Real Provider Notified Time: 02:45 Criteria Met for Priority 2: patient presents to triage with complaints of bilateral flank pain rating 3/10 and complaining of a runny nose and ear pain since yesterday. Disposition - Disposition OB Disposition: Discharge to home I agree with the RN Medical Screening Exam: Yes Case reviewed; plan agreed upon as documented in EMR&OBIX.: Yes Diagnosis: PAIN, UNSPECIFIED
== END 2023-06-16 04:36 ==
LOC: FBPOP 02:21
PROVIDERS: ATTEND Obstetrics & Gynecology
DX: Z53.9 Procedure and treatment not carried out, unspecified reason (principal)
CPT/HCPCS: 59025; 36415; 85025; 81001; 87636; G0463; 99214

== ENCOUNTER 2023-06-20 19:28 | Emergency (ER) | payer OTHER ==
[2023-06-20 19:44] VITALS: BP 135/82; PULSE 96; RESP 18; TEMP 98
--- NOTE | 2023-06-20 19:45 | ED ---
ENT HPI - General Chief complaint: Dental/Oral Stated complaint: Tooth ache Time Seen by Provider: 06/20/23 19:42 Source: patient Mode of arrival: ambulatory Limitations: no limitations - History of Present Illness Initial comments: 28-year-old female presenting with chief complaint of tooth pain. Patient states that she started experiencing right upper tooth pain last night which has persisted into today. She also admits to some swelling. No difficulty breathing or swallowing. No drooling or voice changes. She does not currently have a dentist. She is currently 33 weeks , no abdominal pain or vaginal bleeding. - Related Data Home Medications Medication Instructions Recorded Confirmed Vit No.179/Iron/Folic 1 each PO DAILY 03/18/23 06/16/23 [ Tablet] Previous Rx's Medication Instructions Recorded Amoxic-Pot Clav 875-125Mg 1 tab PO Q12HR 7 Days #14 tab 06/20/23 [Augmentin 875-125] Amoxic-Pot Clav 875-125Mg 1 tab PO Q12HR 7 Days #14 tab 06/20/23 [Augmentin 875-125] Allergies Allergy/AdvReac Type Severity Reaction Status Date / Time No Known Allergies Allergy Verified 06/20/23 19:41 Review of Systems ROS Statement: Those systems with pertinent positive or pertinent negative responses have been documented in the HPI. ROS Other: All systems not noted in ROS Statement are negative. Past Medical History Past Medical History: No Reported History Additional Past Medical History / Comment(s): Patient's had 4 previous vaginal deliveries term History of Any Multi-Drug Resistant Organisms: None Reported Past Surgical History: Cholecystectomy Additional Past Surgical History / Comment(s): Gum surgery. Past Anesthesia/Blood Transfusion Reactions: No Reported Reaction Past Psychological History: No Psychological Hx Reported Smoking Status: Never smoker - Past Family History Father History Unknown: Yes Family Medical History: Unable to Obtain Additional Family Medical History / Comment(s): pt is adopted. no hx available General Exam Limitations: no limitations General appearance: alert, in no apparent distress Head exam: Present: atraumatic, normocephalic Eye exam: Present: normal appearance Expanded Teeth exam: Present: fractured tooth #, dental tenderness # Throat exam: normal inspection Neck exam: Present: normal inspection Respiratory exam: Absent: respiratory distress Neurological exam: Present: alert, oriented X3 Psychiatric exam: Present: normal affect, normal mood Skin exam: Present: warm, dry Course Vital Signs 06/20/23 19:36 Temperature 98.0 F Pulse Rate 96 Respiratory 18 Rate Blood Pressure 135/82 O2 Sat by Pulse 99 Oximetry Medical Decision Making - Medical Decision Making Was pt. sent in by a medical professional or institution (KRISHNA Dominguez, [employer] G[employer], urgent care, hospital, or retirement...) When possible be specific @ -No Did you speak to anyone other than the patient for history (EMS, parent, family, police, friend...)? What history was obtained from this source @ -No Did you review nursing and triage notes (agree or disagree)? Why? @ -I reviewed and agree with nursing and triage notes Were old charts reviewed (outside hosp., previous admission, EMS record, old EKG, old radiological studies, urgent care reports/EKG's, retirement records)? Report findings @ -No old charts were reviewed Differential Diagnosis (chest pain, altered mental status, abdominal pain women, abdominal pain men, vaginal bleeding, weakness, fever, dyspnea, syncope, headache, dizziness, GI bleed, back pain, seizure, CVA, palpatations, mental health, musculoskeletal)? @ -Differential includes toothache, dental abscess, wilbert's angina, this is not all inclusive list EKG interpreted by me (3pts min.). @ -As above X-rays interpreted by me (1pt min.). @ -None done CT interpreted by me (1pt min.). @ -None done U/S interpreted by me (1pt. min.). @ -None done What testing was considered but not performed or refused? (CT, X-rays, U/S, labs)? Why? @ -None What meds were considered but not given or refused? Why? @ -None Did you discuss the management of the patient with other professionals (professionals i.e. KRISHNA Dominguez, [employer] G[employer], lab, RT, psych nurse, social science research assistant, supervisor money room, teacher, certification officer, trimming caser)? Give summary @ -No Was smoking cessation discussed for >3mins.? @ -No Was critical care preformed (if so, how long)? @ -No Were there social determinants of health that impacted care today? How? (Homelessness, low income, unemployed, alcoholism, drug addiction, transportation, low edu. Level, literacy, decrease access to med. care, prison, rehab)? @ -No Was there de-escalation of care discussed even if they declined (Discuss DNR or withdrawal of care, Hospice)? DNR status @ -No What co-morbidities impacted this encounter? (DM, HTN, Smoking, COPD, CAD, Cancer, CVA, ARF, Chemo, Hep., AIDS, mental health diagnosis, sleep apnea, morbid obesity)? @ -None Was patient admitted / discharged? Hospital course, mention meds given and route, prescriptions, significant lab abnormalities, going to OR and other per tinent info. @ -28-year-old female presenting with chief complaint of dental pain. On physical exam there is obvious dental fracture. Mild swelling, no obvious drainable abscess. No midline shift or brawny induration. Patient will be treated with Augmentin and Tylenol for pain. Provided with dentist follow-up. Follow-up with PCP. Report back to ER with any new or worsening symptoms. Discussed return parameters and answered all questions. Patient conveyed verbal understanding and agreed to the plan. I discussed this case in detail with my attending Dr. Petersen Undiagnosed new problem with uncertain prognosis? @ -No Drug Therapy requiring intensive monitoring for toxicity (Heparin, Nitro, Insulin, Cardizem)? @ -No Were any procedures done? @ -No Diagnosis/symptom? @ -Dental abscess Acute, or Chronic, or Acute on Chronic? @ -Acute Uncomplicated (without systemic symptoms) or Complicated (systemic symptoms)? @ -Uncomplicated Side effects of treatment? @ -No Exacerbation, Progression, or Severe Exacerbation? @ -No Poses a threat to life or bodily function? How? (Chest pain, [place], [place], pneumonia, PE, COPD, DKA, ARF, appy, cholecystitis, CVA, Diverticulitis, Homicidal, Suicidal, threat to staff... and all critical care pts) @ -No Disposition Clinical Impression: Dental abscess Disposition: HOME SELF-CARE Condition: Good Instructions (If sedation given, give patient instructions): Dental Abscess (ED), Toothache (ED) Additional Instructions: Please follow up with the [facility] dental [facility]. [facility] [place] [address]. Phone number for new patients or [phone] for existing patients. Take Tylenol as needed for pain Prescriptions: Amoxic-Pot Clav 875-125Mg [Augmentin 875-125] 1 tab PO Q12HR 7 Days #14 tab Amoxic-Pot Clav 875-125Mg [Augmentin 875-125] 1 tab PO Q12HR 7 Days #14 tab Is patient prescribed a controlled substance at d/c from ED?: No Referrals: Yunior Webster MD [Primary Care Provider] - 1-2 days Time of Disposition: 19:44
== END 2023-06-20 20:05 | disposition home or self-care (01) ==
LOC: EC 19:28
DX: K04.7 Periapical abscess without sinus (principal)
CPT/HCPCS: 99282

== ENCOUNTER 2023-07-25 20:57 | Inpatient (IN) | payer OTHER ==
[2023-07-25] MEDS ORDERED: TRANEXAMIC 1,000 MG/100ML-NACL 1,000 MG in EMPTY BAG 1 BAG IV PRN (21:58)
[2023-07-25] MEDS ORDERED: METHYLERGONOVINE 0.2 MG/ML 1 ML AMP IM PRN (21:58)
[2023-07-25] MEDS ORDERED: LIDOCAINE 0.5% (PF) 5 MG/ML (50 ML SDV) SQ PRN (21:58)
[2023-07-25] MEDS ORDERED: TERBUTALINE 1 MG/ML VIAL SQ PRN (21:58)
[2023-07-25] MEDS ORDERED: AMPICILLIN 2,000 MG in SODIUM CHLORIDE 0.9% 100 ML IVPB STA (21:58)
[2023-07-25] MEDS ORDERED: OXYTOCIN 10 UNIT/ML 1 ML VIAL IM PRN (21:58)
[2023-07-25] MEDS ORDERED: miSOPROStoL 200 MCG TAB PO PRN (21:58)
[2023-07-25] MEDS ORDERED: CARBOPROST TROMETHAMINE 250 MCG/ML 1 ML AMP IM PRN (21:58)
[2023-07-25] MEDS ORDERED: OXYTOCIN 30 UNITS/500 ML NS 30 UNIT in SALINE 1 500ML.BAG IV SCH (22:00)
[2023-07-25] MEDS ORDERED: LACTATED RINGERS 1,000 ML IV SCH (22:00)
--- NOTE | 2023-07-25 23:30 | P.HPOB ---
History of Present Illness H&P Date: 07/25/23 Chief Complaint: Leaking fluid This patient is a pleasant 28-year-old 5 para 4 female estimated date of confinement 08/02/2023 estimated gestational age 38-6/7 weeks who presents to labor and delivery with complaints of gush of fluid at about 640 this evening. Patient's has been complicated by pyelonephritis and approximately 21 weeks which was treated with IV antibiotics. otherwise has been uncomplicated. Review of Systems Genitourinary: Reports Menstruation: Reports amenorrhea Past Medical History Past Medical History: No Reported History Additional Past Medical History / Comment(s): Patient's had 4 previous vaginal deliveries term History of Any Multi-Drug Resistant Organisms: None Reported Past Surgical History: Cholecystectomy Additional Past Surgical History / Comment(s): Gum surgery. Past Anesthesia/Blood Transfusion Reactions: No Reported Reaction Past Psychological History: No Psychological Hx Reported Smoking Status: Never smoker Past Alcohol Use History: None Reported Past Drug Use History: None Reported - Past Family History Father History Unknown: Yes Family Medical History: Unable to Obtain Additional Family Medical History / Comment(s): pt is adopted. no hx available Medications and Allergies Home Medications Medication Instructions Recorded Confirmed Type Vit No.179/Iron/Folic 1 each PO DAILY 03/18/23 06/16/23 History [ Tablet] Allergies Allergy/AdvReac Type Severity Reaction Status Date / Time No Known Allergies Allergy Verified 07/25/23 21:03 Exam Vital Signs Temp Pulse Resp BP 07/25/23 21:57 97.1 F L 102 H 18 132/80 Intake and Output 07/25/23 07/25/23 07/26/23 14:59 22:59 06:59 Other: Weight 102.058 kg - OBG Physical Exam Abdomen: bowel sounds normal, no diffuse tenderness, no bruit present, no guardi ng noted, no hepatomegaly, no splenomegaly, no mass Vulva: both: normal Cervix: no lesion (Cervix is 3 cm and uneffaced gross rupture membranes), no d ischarge Uterus: enlarged Results blood work shows she is A positive, rubella nonimmune, RPR is nonreactive, hepatitis B and C are negative, Glucola was 92, group B strep was positive, most recent ultrasound showed estimated weight is 7 lbs. 5 oz. Assessment and Plan Assessment: This is a pleasant 28-year-old 5 para 4 female estimated gestational age 38-6/7 weeks who presents to labor and delivery with spontaneous rupture membranes at about 640 this evening. Patient's not having regular contractions. Patient does have a history of positive strep this . Plan is antibiotic prophylaxis and Pitocin augmentation of labor. Anticipate vaginal delivery. (1) 38 weeks gestation of Current Visit: Yes Status: Acute Code(s): Z3A.38 - 38 WEEKS GESTATION OF SNOMED Code(s): 82301852 (2) Group B streptococcal carriage complicating Current Visit: Yes Status: Acute Code(s): O99.820 - STREPTOCOCCUS B CARRIER STATE COMPLICATING SNOMED Code(s): 626170245734532 (3) Spontaneous rupture of membranes Current Visit: No Status: Acute Code(s): EAB9965 - SNOMED Code(s): 1697 25671
[2023-07-26] MEDS ORDERED: AMPICILLIN 1,000 MG in SODIUM CHLORIDE 0.9% 50 ML IVPB SCH (02:00)
[2023-07-26] MEDS ORDERED: fentaNYL (PF) 50 MCG/ML 5 ML AMP ONE (02:34)
[2023-07-26] MEDS ORDERED: ROPIVACAINE 5 MG/ML 30 ML VIAL ONE (02:34)
[2023-07-26] MEDS ORDERED: SODIUM CHLORIDE 0.9% 250 ML BAG ONE (02:34)
[2023-07-26 03:31] LABS: Basophils # (A) 0.1 k/uL (0-0.2); Basophils % (A) 1 %; Eosinophils # (A) 0.2 k/uL (0-0.7); Eosinophils % (A) 2 %; HCT 34.3 % (34.0-46.0); HGB 11.2 gm/dL (11.4-16.0); Lymphocytes # (A) 3.1 k/uL (1.0-4.8); Lymphocytes % (A) 27 %; MCH 28.1 pg (25.0-35.0); MCHC 32.8 g/dL (31.0-37.0); MCV 85.6 fL (80.0-100.0); Mean Platelet Volume 9.9; Monocytes # (A) 0.8 k/uL (0-1.0); Monocytes % (A) 7 %; Neutrophils # (A) 6.8 k/uL (1.3-7.7); Neutrophils % (A) 61 %; Platelet Count 243 k/uL (150-450); RDW 14.2 % (11.5-15.5); WBC 11.2 k/uL (3.8-10.6)
[2023-07-26] MEDS ORDERED: SIMETHICONE 80 MG CHEWABLE PO PRN (04:37)
[2023-07-26] MEDS ORDERED: MEASLES-MUMPS-RUBELLA VACC/PF 12,500 UNIT/0.5 ML VIAL SQ ONE (04:37)
[2023-07-26] MEDS ORDERED: LANOLIN CREAM 5 GM TUBE TOPICAL PRN (04:37)
[2023-07-26] MEDS ORDERED: diphenhydrAMINE 25 MG CAP PO PRN (04:37)
[2023-07-26] MEDS ORDERED: BENZOCAINE/MENTHOL SPRAY 1 GM/SPRAY AEROSOL TOPICAL PRN (04:37)
[2023-07-26] MEDS ORDERED: bisacodyL 10 MG SUPP RECTAL PRN (04:37)
[2023-07-26] MEDS ORDERED: ZOLPIDEM 5 MG TAB PO PRN (04:37)
[2023-07-26] MEDS ORDERED: diphenhydrAMINE 50 MG/ML 1 ML VIAL IVP PRN (04:37)
[2023-07-26] MEDS ORDERED: HYDROCORTISONE 2.5% RECTAL CREAM 30 GM TUBE RECTAL PRN (04:37)
--- NOTE | 2023-07-26 04:41 | P.PROBDLV ---
Vaginal Delivery Note - . Vaginal Delivery Note: Normal spontaneous vaginal delivery viable female infant Apgars 9 and 10 delivery time is 0412 hours. Please see dictated H&P for intimate details of this patient's admission. In brief summary is a pleasant 28-year-old 5 para 4 female estimated gestational age 39 weeks who is admitted with complaints of spontaneous rupture membranes at 640 last evening. On admission patient is 3 cm dilated has augmentation of labor with Pitocin. Patient does get an epidural for pain control. Patient's labor progresses quickly she gets to complete. Patient is given antibiotics in labor for a positive group B strep culture. Patient pushes the head to the perineum the posterior perineum was supported. Controlled delivery of infant's head over the intact perineum. Mouth and nares are bulb suctioned. Is no evidence of a nuchal cord. Gentle downward traction we then have deliver the anterior posterior shoulder and rest this infant's body. This is a vigorous viable female Apgars 9 and 10 delivery time is 0412 hours. is late on the mother's abdomen. After the core some pulsating is doubly clamped and cut. The placenta is then spontaneously delivered intact. Inspection of perineum shows no lacerations and no repair. and mother stable delivery room. No complications. All counts correct 3.
--- NOTE | 2023-07-26 04:43 | P.MSEPDOC ---
Presenting Problems - Arrival Data Date of Arrival on Unit: 07/26/23 Time of Arrival on Unit: 21:51 Mode of Transport: Ambulatory - Complaint OB-Reason for Admission/Chief Complaint: Rule Out SROM Comment: Patient presents to triage with SROM at 1840 with clear fluid Medical History - Information : 5 Para: 4 Term: 4 : 0 Abortions: Spontaneous or Elective: 0 Number of Living Children: 4 - Gestational Age Gestational Age by ABHIJEET (wks/days): 38 Weeks and 6 Days - History Complications: GBS+ Review of Systems - Review of Systems Constitutional: No problems Breast: No problems ENT: No problems Cardiovascular: No problems Respiratory: No problems Gastrointestinal: No problems Genitourinary: No problems Musculoskeletal: No problems Neurological: No problems Skin: No problems Vital Signs - Temperature Temperature: 97.1 F Temperature Source: Temporal Artery Scan - Pulse Pulse Oximetery Pulse Rate: 92 Pulse Assessment Method: Pulse Oximetry - Respirations Respiratory Rate: 16 Oxygen Delivery Method: Room Air O2 Sat by Pulse Oximetry: 98 - Blood Pressure Right Arm Blood Pressure: 141/77 Blood Pressure Mean: 98 Blood Pressure Source: Automatic Cuff Physician Notification - Physician Notified Physician Notified Date: 07/25/23 Physician Notified Time: 21:42 Physician: William Foster New Order Received: Yes (admit for labor) Maternal Triage Index - Maternal Triage Index Presenting for scheduled procedure w/no complaint: No - Stat/Priority 1 Stat Priority 1: No - Urgent/Priority 2 Urgent Priority 2: No - Prompt/Priority 3 Prompt Priority 3: No - Non-Urgent/Priority 4 Non-Urgent Priority 4: Yes Criteria Met for Priority 4: patient presents to triage with SROM at 1840 with clear fluid noted Disposition - Disposition OB Disposition: Admit I agree with the RN Medical Screening Exam: Yes Case reviewed; plan agreed upon as documented in EMR&OBIX.: Yes Diagnosis: ENCOUNTER FOR FULL-TERM UNCOMPLICATED DELIVERY
[2023-07-26] MEDS ORDERED: OXYTOCIN 30 UNITS/500 ML NS 30 UNIT in SALINE 1 500ML.BAG IV SCH (04:45)
[2023-07-26 04:53] VITALS: RESP 16
[2023-07-26] MEDS: ACETAMINOPHEN TAB 325 MG TAB PO PRN ×3 (07:59→18:25)
[2023-07-26] MEDS: SENNOSIDES-DOCUSATE SODIUM 1 EACH TAB PO SCH ×2 (08:00→20:13)
[2023-07-26] MEDS: IBUPROFEN 600 MG TAB PO PRN ×2 (15:29→21:58)
[2023-07-27] MEDS: ACETAMINOPHEN TAB 325 MG TAB PO PRN (04:49)
[2023-07-27 07:52] LABS: Basophils % (A) 1 %; Eosinophils # (A) 0.3 k/uL (0-0.7); Eosinophils % (A) 3 %; HGB 10.9 gm/dL (11.4-16.0); Lymphocytes # (A) 2.9 k/uL (1.0-4.8); Lymphocytes % (A) 29 %; MCH 28.8 pg (25.0-35.0); MCHC 32.9 g/dL (31.0-37.0); MCV 87.4 fL (80.0-100.0); Mean Platelet Volume 8.6; Monocytes # (A) 0.5 k/uL (0-1.0); Monocytes % (A) 5 %; Neutrophils # (A) 5.8 k/uL (1.3-7.7); Neutrophils % (A) 59 %; Platelet Count 227 k/uL (150-450); RBC 3.78 m/uL (3.80-5.40); RDW 14.1 % (11.5-15.5); WBC 9.7 k/uL (3.8-10.6)
[2023-07-27] MEDS: IBUPROFEN 600 MG TAB PO PRN (08:43)
[2023-07-27] MEDS: SENNOSIDES-DOCUSATE SODIUM 1 EACH TAB PO SCH (08:43)
[2023-07-27 09:03] VITALS: BP 132/87; PULSE 95; TEMP 97.7
--- NOTE | 2023-07-27 09:49 | P.DS ---
Providers Date of admission: 07/25/23 21:51 Expected date of discharge: 07/27/23 Attending physician: William Foster Primary care physician: Stated None Hospital Course: This is a 28-year-old female 5 para 4 at 39-0/7 weeks who presented in active labor. She delivered vaginally a viable female infant on 07/26/2023 with scores of 9 at 1 minute and 10 at 5 minutes and weight of 8 pounds 4 ounces. Please see history and physical and delivery record for details of patient admission. Her course has been uncomplicated. Lochia has been decreasing. Pain is fairly well-controlled with ibuprofen and Tylenol. Vital signs are stable. Abdomen is soft with fundus firm and nontender. Extremities show negative Homans. Impression is status post vaginal delivery day #1. Plan is to discharge home today. She has a breast pump at home. Prescriptions for ibuprofen have already been sent into her pharmacy. She is advised to follow-up with Dr. Foster in the office in 6 weeks. She is advised to call the office if she has any further questions or concerns prior to her appointment time. Procedures: Spontaneous vaginal delivery of a viable female on 07/26/2023 Patient Condition at Discharge: Stable Plan - Discharge Summary Discharge Rx Participant: No New Discharge Prescriptions: New Ibuprofen [Motrin] 600 mg PO Q6HR PRN #30 tab PRN Reason: Mild Pain (Scale 1 To 3) No Action Vit No.179/Iron/Folic [ Tablet] 1 each PO DAILY Discharge Medication List Vit No.179/Iron/Folic [ Tablet] 1 each PO DAILY 03/18/23 [History] Ibuprofen [Motrin] 600 mg PO Q6HR PRN #30 tab 07/26/23 [Rx] Follow up Appointment(s)/Referral(s): William Foster MD [STAFF PHYSICIAN] - 6 Weeks (PP 09/04/23 @10:45Am) Patient Instructions/Handouts: Vaginal Delivery (DC) Activity/Diet/Wound Care/Special Instructions: No intercourse or anything per vagina for 6 weeks. Please call if any fever, chills, excessive vaginal bleeding, and/or abdominal pain Discharge Disposition: HOME SELF-CARE
== END 2023-07-27 11:15 | disposition home or self-care (01) | DRG 560 ==
LOC: FBPOP 20:57 → 4FBP 21:51
PROVIDERS: ADMIT Obstetrics & Gynecology; ATTEND Obstetrics & Gynecology
PROC: 10E0XZZ Delivery of Products of Conception, External Approach (ICD-10-PCS; principal; 2023-07-26)
DX: O99.824 Streptococcus B carrier state complicating childbirth (principal); Z37.0 Single live birth; Z3A.38 38 weeks gestation of pregnancy
CPT/HCPCS: 84112; 85025; 86850; 86900; 86901; 90707; 99213

== ENCOUNTER 2023-12-06 22:14 | Inpatient (IN) | payer OTHER ==
[2023-12-06 23:01] LABS: Basophils # (A) 0.1 k/uL (0-0.2); Basophils % (A) 0 %; Eosinophils # (A) 0.1 k/uL (0-0.7); Eosinophils % (A) 1 %; HCT 43.9 % (34.0-46.0); HGB 13.9 gm/dL (11.4-16.0); Lymphocytes # (A) 2.1 k/uL (1.0-4.8); Lymphocytes % (A) 10 %; MCH 27.2 pg (25.0-35.0); MCHC 31.7 g/dL (31.0-37.0); MCV 85.9 fL (80.0-100.0); Mean Platelet Volume 8.5; Monocytes # (A) 1.1 k/uL (0-1.0); Monocytes % (A) 5 %; Neutrophils # (A) 17.3 k/uL (1.3-7.7); Neutrophils % (A) 83 %; Platelet Count 229 k/uL (150-450); RDW 14.1 % (11.5-15.5); WBC 20.9 k/uL (3.8-10.6)
[2023-12-06] MEDS: KETOROLAC 15 MG/ML 1 ML VIAL IVP STA (23:13)
[2023-12-06] MEDS: SODIUM CHLORIDE 0.9% 2,000 ML IV STA (23:13)
[2023-12-06] MEDS: ONDANSETRON 4 MG/2 ML VIAL IVP STA (23:13)
[2023-12-06 23:26] LABS: Appearance,Urine Cloudy (Clear); Bacteria,Urine Rare /hpf; Bilirubin,Urine Negative (Negative); Blood,Urine Negative (Negative); Color,Urine Dark Yellow; Glucose,Urine (UA) Negative (Negative); Ketones,Urine 1+ (Negative); Leukocyte Esterase,Urine Large (Negative); Mucus,Urine Rare /hpf; Nitrite,Urine Negative (Negative); Protein,Urine 1+ (Negative); RBC,Urine 8 /hpf (0-5); Specific Gravity,Urine 1.027 (1.001-1.035); Squamous Epithelial Cell,Urine 7 /hpf (0-4); WBC,Urine 96 /hpf (0-5)
[2023-12-06 23:28] LABS: ALT 25 U/L (4-34); AST 28 U/L (14-36); African American GFR (CKD) >90 (>60 ml/min/1.73 sqM); Albumin 4.4 g/dL (3.5-5.0); Alkaline Phosphatase 47 U/L (38-126); Anion Gap 9 mmol/L; Blood Urea Nitrogen 7 mg/dL (7-17); Carbon Dioxide 22 mmol/L (22-30); Chloride 102 mmol/L (98-107); Glucose 98 mg/dL (74-99); Non-African American GFR(CKD) >90 (>60 ml/min/1.73 sqM); Potassium 3.8 mmol/L (3.5-5.1); Sodium 133 mmol/L (137-145); Total Bilirubin 1.4 mg/dL (0.2-1.3); Total Protein 7.3 g/dL (6.3-8.2)
--- NOTE | 2023-12-06 23:55 | CT ---
EXAMINATION TYPE: CT abdomen pelvis w con DATE OF EXAM: 12/06/2023 HISTORY: Brought in by EMS for RLQ abdominal pain. Started antibiotics yesterday for bladder infectio n with no improvement. Dark colored urine. [address] DLP: 788.4mGycm Automated Exposure Control for Dose Reduction was Utilized. CONTRAST: CT scan of the abdomen and pelvis is performed with IV Contrast, patient injected with 100 mL of Isov ue 300. COMPARISON: Prior CT July 30, 2021 FINDINGS: LUNG BASES: No significant abnormality is appreciated. LIVER/GB: Cholecystectomy clips are redemonstrated. PANCREAS: No significant abnormality is seen. SPLEEN: No significant abnormality is seen. ADRENALS: No significant abnormality is seen. KIDNEYS: Symmetrical excretion without hydronephrosis seen bilaterally. Right kidney shows multifocal wedge-shaped areas of diminished enhancement. Poorly distended bladder is suboptimally evaluated. BOWEL: No abnormal small or large bowel dilatation. UTERUS/ADNEXA: Slightly retroflexed uterus on current study. Small amount of free fluid in the pelvis axial image 75 on current study. There is ring-enhancing 1.7 cm lesion in the right pelvis or ovary likely reflecting corpus luteal cyst from recent ovulation. LYMPH NODES: No greater than 1cm abdominal or pelvic lymph nodes are appreciated. OSSEOUS STRUCTURES: No significant abnormality is seen. OTHER: Stable small fat-containing umbilical hernia. IMPRESSION: Right-sided multifocal areas of diminished enhancement consistent with acute pyelonephrit is.
--- NOTE | 2023-12-07 00:07 | XR ---
EXAMINATION TYPE: XR cervical spine comp DATE OF EXAM: 12/06/2023 TECHNIQUE: Frontal, lateral, oblique, and open mouth view of the cervical spine are obtained. HISTORY: fall down stairs, neck pain COMPARISON: None FINDINGS: The cervical spine is visualized from C1 thru the inferior C7 level, it is satisfactory in alignment without evidence of acute fracture or dislocation. Suboptimal evaluation of C7-T1 disc spa ce without dedicated swimmer's view. The pre-vertebral soft tissue appears within normal limits. The C1-C2 articulation is within normal limits on the open mouth view. Vertebral body heights and disc s pace heights are maintained. The oblique images are within normal limits. The overlying soft tissue i s unremarkable. IMPRESSION: No acute fracture or dislocation is seen in the cervical spine.
--- NOTE | 2023-12-07 00:38 | ED ---
Female Urogenital HPI - General Chief complaint: Urogenital Stated complaint: Kidney infection Time Seen by Provider: 12/06/23 22:35 Source: EMS Mode of arrival: EMS Limitations: no limitations - History of Present Illness Initial comments: 28-year-old female who presents to the emergency department reporting right lower quadrant pain. Patient has had pain for the past few days. She went into her primary care office yesterday and was started on antibiotics for a bladder infection. Continues to have frequency of urination and very dark urine. States that the pain is getting worse. She has had a history of kidney infections before and states this feels similar. No history of kidney stones. Admits to decreased oral intake. No vomiting. Patient does arrive with a fever. Denies . Patient is status postcholecystectomy. No other alleviating, precipitating or modifying factors - Related Data Home Medications Medication Instructions Recorded Confirmed Butalb/APAP/Caff 50-325-40Mg 1 tab PO BID 12/07/23 12/07/23 [Fioricet 50-325-40] Previous Rx's Medication Instructions Recorded Acetaminophen Tab [Tylenol] 650 mg PO Q6HR PRN tab 12/09/23 Famotidine [Pepcid] 20 mg PO BID #10 tab 12/09/23 Naproxen [Naprosyn] 250 mg PO BID #10 tab 12/09/23 cefUROXime axetiL [Ceftin] 500 mg PO BID #14 tab 12/09/23 Allergies Allergy/AdvReac Type Severity Reaction Status Date / Time No Known Allergies Allergy Verified 12/07/23 13:00 Review of Systems ROS Statement: Those systems with pertinent positive or pertinent negative responses have been documented in the HPI. ROS Other: All systems not noted in ROS Statement are negative. Past Medical History Past Medical History: No Reported History Additional Past Medical History / Comment(s): Patient's had 4 previous vaginal deliveries term History of Any Multi-Drug Resistant Organisms: None Reported Past Surgical History: Cholecystectomy Additional Past Surgical History / Comment(s): Gum surgery. Past Anesthesia/Blood Transfusion Reactions: No Reported Reaction Past Psychological History: No Psychological Hx Reported Smoking Status: Never smoker Past Alcohol Use History: None Reported Past Drug Use History: None Reported - Past Family History Father History Unknown: Yes Family Medical History: Unable to Obtain Additional Family Medical History / Comment(s): pt is adopted. no hx available General Exam Limitations: no limitations General appearance: alert, in no apparent distress Head exam: Present: atraumatic, normocephalic, normal inspection Eye exam: Present: normal appearance, PERRL, EOMI. Absent: scleral icterus, conjunctival injection, periorbital swelling ENT exam: Present: normal exam, mucous membranes moist Neck exam: Present: normal inspection. Absent: tenderness, meningismus, lymphadenopathy Respiratory exam: Present: normal lung sounds bilaterally. Absent: respiratory distress, wheezes, rales, rhonchi, stridor Cardiovascular Exam: Present: normal rhythm, tachycardia, normal heart sounds. Absent: systolic murmur, diastolic murmur, rubs, gallop, clicks GI/Abdominal exam: Present: soft, normal bowel sounds. Absent: distended, tenderness, guarding, rebound, rigid Extremities exam: Present: normal inspection, full ROM, normal capillary refill. Absent: tenderness, pedal edema, joint swelling, calf tenderness Back exam: Present: CVA tenderness (R) Neurological exam: Present: alert, oriented X3, CN II-XII intact Psychiatric exam: Present: normal affect, normal mood Skin exam: Present: warm, dry, intact, normal color. Absent: rash Course Vital Signs 12/06/23 12/07/23 12/07/23 22:32 02:49 06:18 Temperature 99.0 F 99.0 F Pulse Rate 113 H 108 H 109 H Respiratory 18 18 16 Rate Blood Pressure 121/81 98/62 100/56 O2 Sat by Pulse 100 100 99 Oximetry Medical Decision Making - Medical Decision Making Was pt. sent in by a medical professional or institution (KRISHNA Dominguez, MAT MACHINE TENDER, urgent care, hospital, or senior living...) When possible be specific @ -No Did you speak to anyone other than the patient for history (EMS, parent, family, police, friend...)? What history was obtained from this source @ -I spoke with EMS for history Did you review nursing and triage notes (agree or disagree)? Why? @ -I reviewed and agree with nursing and triage notes Were old charts reviewed (outside hosp., previous admission, EMS record, old EKG, old radiological studies, urgent care reports/EKG's, senior living records)? Report findings @ -No old charts were reviewed Differential Diagnosis (chest pain, altered mental status, abdominal pain women, abdominal pain men, vaginal bleeding, weakness, fever, dyspnea, syncope, headache, dizziness, GI bleed, back pain, seizure, CVA, palpatations, mental health, musculoskeletal)? @ -Differential Fever: Pneumonia, viral URI, endocarditis, myocarditis, pericarditis, otitis, sinusitis, peritonsillar Abscess, retropharyngeal Abscess, epiglottitis, p eritonitis, appendicitis, Leatha cystitis, diverticulitis, hepatitis, colitis, UTI, PID, TOA, pyelonephritis, prostatitis, epididymitis, meningitis, encephalitis, pulmonary embolism, CVA, thyroid storm, pancreatitis, adrenal crisis, cavernous sinus thrombosis, this is not meant to be an all-inclusive list. EKG interpreted by me (3pts min.). @ -Not done X-rays interpreted by me (1pt min.). @ -None done CT interpreted by me (1pt min.). @ -Yes and demonstrates acute pyelonephritis U/S interpreted by me (1pt. min.). @ -None done What testing was considered but not performed or refused? (CT, X-rays, U/S, labs)? Why? @ -None What meds were considered but not given or refused? Why? @ -None Did you discuss the management of the patient with other professionals (professionals i.e. , PA, MAT MACHINE TENDER, lab, RT, psych nurse, protective services social worker, tea and spice supervisor, teacher, deputy juvenile officer, supportive employment case manager)? Give summary @ -Spoke with Dr. Camara for admission Was smoking cessation discussed for >3mins.? @ -No Was critical care preformed (if so, how long)? @ -No Were there social determinants of health that impacted care today? How? (Homelessness, low income, unemployed, alcoholism, drug addiction, transportatio n, low edu. Level, literacy, decrease access to med. care, [facility], rehab)? @ -No Was there de-escalation of care discussed even if they declined (Discuss DNR or withdrawal of care, Hospice)? DNR status @ -No What co-morbidities impacted this encounter? (DM, HTN, Smoking, COPD, CAD, Cancer, CVA, ARF, Chemo, Hep., AIDS, mental health diagnosis, sleep apnea, morbid obesity)? @ -None Was patient admitted / discharged? Hospital course, mention meds given and route, prescriptions, significant lab abnormalities, going to OR and other pertinent info. @ -Upon arrival patient seen and evaluated in room 6. Thorough history and physical exam was performed. IV was established. Laboratory studies were conducted. CT was performed. Patient does have SIRS criteria due to acute pyelonephritis. Patient will be admitted at this time. Spoke with Dr. Camara who accepted admission Undiagnosed new problem with uncertain prognosis? @ -No Drug Therapy requiring intensive monitoring for toxicity (Heparin, Nitro, Insulin, Cardizem)? @ -No Were any procedures done? @ -No Diagnosis/symptom? @ -Acute right-sided flank pain, acute pyrexia, acute pyelonephritis failing outpatient treatment Acute, or Chronic, or Acute on Chronic? @ -Acute Uncomplicated (without systemic symptoms) or Complicated (systemic symptoms)? @ -Complicated Side effects of treatment? @ -No Exacerbation, Progression, or Severe Exacerbation? @ -No Poses a threat to life or bodily function? How? (Chest pain, USA, DC, pneumonia, PE, COPD, DKA, ARF, appy, cholecystitis, CVA, Diverticulitis, Homicidal, Suicidal, threat to staff... and all critical care pts) @ -No - Lab Data Result diagrams: 12/08/23 06:09 12/08/23 06:09 Lab Results 12/06/23 12/06/23 12/06/23 Range/Units 22:39 22:39 22:39 WBC 20.9 H (3.8-10.6) k/uL RBC 5.10 (3.80-5.40) m/uL Hgb 13.9 (11.4-16.0) gm/dL Hct 43.9 (34.0-46.0) % MCV 85.9 (80.0-100.0) fL MCH 27.2 (25.0-35.0) pg MCHC 31.7 (31.0-37.0) g/dL RDW 14.1 (11.5-15.5) % Plt Count 229 (150-450) k/uL MPV 8.5 Neutrophils % 83 % Lymphocytes % 10 % Monocytes % 5 % Eosinophils % 1 % Basophils % 0 % Neutrophils # 17.3 H (1.3-7.7) k/uL Lymphocytes # 2.1 (1.0-4.8) k/uL Monocytes # 1.1 H (0-1.0) k/uL Eosinophils # 0.1 (0-0.7) k/uL Basophils # 0.1 (0-0.2) k/uL Sodium (137-145) mmol/L Potassium (3.5-5.1) mmol/L Chloride (98-107) mmol/L Carbon Dioxide (22-30) mmol/L Anion Gap mmol/L BUN (7-17) mg/dL Creatinine (0.52-1.04) mg/dL Est GFR (CKD-EPI)AfAm (>60 ml/min/1.73 sqM) Est GFR (CKD-EPI)NonAf (>60 ml/min/1.73 sqM) Glucose (74-99) mg/dL Plasma Lactic Acid Farshad (0.7-2.0) mmol/L Calcium (8.4-10.2) mg/dL Total Bilirubin (0.2-1.3) mg/dL AST (14-36) U/L ALT (4-34) U/L Alkaline Phosphatase (38-126) U/L Total Protein (6.3-8.2) g/dL Albumin (3.5-5.0) g/dL Urine Color Dark Yellow Urine Appearance Cloudy H (Clear) Urine pH 6.0 (5.0-8.0) Ur Specific [place] 1.027 (1.001-1.035) Urine Protein 1+ H (Negative) Urine Glucose (UA) Negative (Negative) Urine Ketones 1+ H (Negative) Urine Blood Negative (Negative) Urine Nitrite Negative (Negative) Urine Bilirubin Negative (Negative) Urine Urobilinogen 2.0 (<2.0) mg/dL Ur Leukocyte Esterase Large H (Negative) Urine RBC 8 H (0-5) /hpf Urine WBC 96 H (0-5) /hpf Urine WBC Clumps Few H (None) /hpf Ur Squamous Epith Cells 7 H (0-4) /hpf Urine Bacteria Rare H (None) /hpf Urine Mucus Rare H (None) /hpf Urine HCG, Qual Not Detected (Not Detectd) 12/06/23 12/06/23 Range/Units 22:39 22:39 WBC (3.8-10.6) k/uL RBC (3.80-5.40) m/uL Hgb (11.4-16.0) gm/dL Hct (34.0-46.0) % MCV (80.0-100.0) fL MCH (25.0-35.0) pg MCHC (31.0-37.0) g/dL RDW (11.5-15.5) % Plt Count (150-450) k/uL MPV Neutrophils % % Lymphocytes % % Monocytes % % Eosinophils % % Basophils % % Neutrophils # (1.3-7.7) k/uL Lymphocytes # (1.0-4.8) k/uL Monocytes # (0-1.0) k/uL Eosinophils # (0-0.7) k/uL Basophils # (0-0.2) k/uL Sodium 133 L (137-145) mmol/L Potassium 3.8 (3.5-5.1) mmol/L Chloride 102 (98-107) mmol/L Carbon Dioxide 22 (22-30) mmol/L Anion Gap 9 mmol/L BUN 7 (7-17) mg/dL Creatinine 0.79 (0.52-1.04) mg/dL Est GFR (CKD-EPI)AfAm >90 (>60 ml/min/1.73 sqM) Est GFR (CKD-EPI)NonAf >90 (>60 ml/min/1.73 sqM) Glucose 98 (74-99) mg/dL Plasma Lactic Acid Farshad 1.2 (0.7-2.0) mmol/L Calcium 9.0 (8.4-10.2) mg/dL Total Bilirubin 1.4 H (0.2-1.3) mg/dL AST 28 (14-36) U/L ALT 25 (4-34) U/L Alkaline Phosphatase 47 (38-126) U/L Total Protein 7.3 (6.3-8.2) g/dL Albumin 4.4 (3.5-5.0) g/dL Urine Color Urine Appearance (Clear) Urine pH (5.0-8.0) Ur Specific [place] (1.001-1.035) Urine Protein (Negative) Urine Glucose (UA) (Negative) Urine Ketones (Negative) Urine Blood (Negative) Urine Nitrite (Negative) Urine Bilirubin (Negative) Urine Urobilinogen (<2.0) mg/dL Ur Leukocyte Esterase (Negative) Urine RBC (0-5) /hpf Urine WBC (0-5) /hpf Urine WBC Clumps (None) /hpf Ur Squamous Epith Cells (0-4) /hpf Urine Bacteria (None) /hpf Urine Mucus (None) /hpf Urine HCG, Qual (Not Detectd) Disposition Clinical Impression: Pyelonephritis, Fever, Right flank pain, Leukocytosis Disposition: ADMITTED IP TO THIS HOSP Is patient prescribed a controlled substance at d/c from ED?: No Time of Disposition: 00:38 Decision to Admit Reason: Admit from EC Decision Date: 12/07/23 Decision Time: 00:38
[2023-12-07] MEDS ORDERED: NALOXONE 0.4 MG/ML 1 ML VIAL IV PRN (00:39)
[2023-12-07] MEDS: cefTRIAXone IN SWFI 1,000 MG/10 ML SYRINGE IVP STA (00:48)
[2023-12-07] MEDS ORDERED: IBUPROFEN 400 MG TAB PO PRN (01:04)
[2023-12-07] MEDS: SODIUM CHLORIDE 0.9% 1,000 ML IV SCH (01:27)
[2023-12-07] MEDS: KETOROLAC 15 MG/ML 1 ML VIAL IVP PRN (02:47)
[2023-12-07] MEDS: ACETAMINOPHEN TAB 325 MG TAB PO PRN (08:38)
[2023-12-07] MEDS: LACTATED RINGERS 1,000 ML IV SCH (11:06)
[2023-12-07] MEDS: ENOXAPARIN 40 MG/0.4 ML SYRINGE SQ SCH (11:06)
--- NOTE | 2023-12-07 21:11 | P.HPIM ---
History of Present Illness H&P Date: 12/07/23 Chief Complaint: Nausea This is a 28-year-old patient whose had previous UTIs. Follows with Dr. Webster. For about 2-week not feeling well. 1 day started having more dark-colored urine. Strong colored urine. Fever and chills tired perspiring nausea. Totally rundown. Clammy, presented to the ER. Pale able to eat Review of systems: GEN.: Febrile weak tired decreased appetite EYES: None HEENT: None NECK: None RESPIRATORY: None CARDIOVASCULAR: None GASTROINTESTINAL: None GENITOURINARY: As above e MUSCULOSKELETAL: None LYMPHATICS: None HEMATOLOGICAL: None PSYCHIATRY: None NEUROLOGICAL: None Social history: Lives alone has 5 children aged 8, 7, 4, 3, 4-month-old. Her friend is a dietetics professor. 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 Does not smoke or drink alcohol Physical examination: VITAL SIGNS: 99, 113, 18, 121/81, 100% room air GENERAL: BMI 24.8, laying in bed tired clammy. Heavily perspiring EYES: Pupils equal. Conjunctiva riya l. HEENT: External appearance of nose and ears normal, oral cavity grossly normal. NECK: JVD not raised; masses not palpable. HEART: First and second heart sounds are normal; no edema. LUNGS: Respiratory rate normal; clear to auscultation. ABDOMEN: Soft, right flank tenderness r, liver spleen not palpable, no masses palpable. PSYCH: Alert and oriented x3; mood and affect riya l. MUSCULOSKELETAL:No Clubbing/cyanosis;muscles-grossly intact NEUROLOGICAL: Cranial nerves grossly intact; no facial asymmetry, power and sensation grossly intact. LYMPHATICS: No lymph nodes palpable in the axilla and neck INVESTIGATIONS, reviewed in the clinical context: December 06, 2023: White count 20.9 hemoglobin 13.9 platelets 229 sodium 133 potassium 3.8 creatinine 0.79 UA: Positive for leukoesterase WBC bacteria Assessment plan: -Acute severe UTI with cystitis causing sepsis IV ceftriaxone 1 g every 12 due to severity -Severe sepsis Antibiotics, IV fluids at the rate of 150 cc an hour -Severe nausea secondary to sepsis Zofran as needed -Mild hyponatremia secondary to hypovolemia -Hyperbilirubinemia Care was discussed with the patient. Questions answered. Given the complexity and severity of patient's condition expect the patient to be in the hospital at least for 2 overnights Past Medical History Past Medical History: No Reported History Additional Past Medical History / Comment(s): Patient's had 4 previous vaginal deliveries term History of Any Multi-Drug Resistant Organisms: None Reported Past Surgical History: Cholecystectomy Additional Past Surgical History / Comment(s): Gum surgery. Past Anesthesia/Blood Transfusion Reactions: No Reported Reaction Past Psychological History: No Psychological Hx Reported Smoking Status: Never smoker Past Alcohol Use History: None Reported Past Drug Use History: None Reported - Past Family History Father History Unknown: Yes Family Medical History: Unable to Obtain Additional Family Medical History / Comment(s): pt is adopted. no hx available Medications and Allergies Home Medications Medication Instructions Recorded Confirmed Type Butalb/APAP/Caff 50-325-40Mg 1 tab PO BID 12/07/23 12/07/23 History [Fioricet 50-325-40] Nitrofurantoin Monohyd/M-Cryst 100 mg PO Q12HR 12/07/23 12/07/23 History [Macrobid] Allergies Allergy/AdvReac Type Severity Reaction Status Date / Time No Known Allergies Allergy Verified 12/07/23 13:00 Physical Exam Vitals: Vital Signs Temp Pulse Pulse Resp BP BP Pulse Ox 12/07/23 19:01 100.9 F H 12/07/23 18:37 103.0 F H 106 H 17 101/65 100 12/07/23 14:20 97.8 F 90 16 94/60 100 12/07/23 07:44 98.6 F 104 H 19 120/70 100 12/07/23 06:18 99.0 F 109 H 16 100/56 99 12/07/23 02:49 108 H 18 98/62 100 12/06/23 22:32 99.0 F 113 H 18 121/81 100 Intake and Output 12/07/23 12/07/23 12/07/23 06:59 14:59 22:59 Intake Total 200 Balance 200 Intake: Intake, IV Titration 200 Amount Lactated Ringers 1,000 ml 200 @ 150 mls/hr IV .Q6H40M [facility] Rx#:[id number] Oral 0 Other: Voiding Method Toilet # Voids 1 # Bowel Movements 1 Weight 78.471 kg Results CBC & Chem 7: 12/06/23 22:39 12/06/23 22:39 Labs: Abnormal Lab Results - Last 24 Hours (Table) 12/06/23 12/06/23 12/06/23 Range/Units 22:39 22:39 22:39 WBC 20.9 H (3.8-10.6) k/uL Neutrophils # 17.3 H (1.3-7.7) k/uL Monocytes # 1.1 H (0-1.0) k/uL Sodium 133 L (137-145) mmol/L Total Bilirubin 1.4 H (0.2-1.3) mg/dL Urine Appearance Cloudy H (Clear) Urine Protein 1+ H (Negative) Urine Ketones 1+ H (Negative) Ur Leukocyte Esterase Large H (Negative) Urine RBC 8 H (0-5) /hpf Urine WBC 96 H (0-5) /hpf Urine WBC Clumps Few H (None) /hpf Ur Squamous Epith Cells 7 H (0-4) /hpf Urine Bacteria Rare H (None) /hpf Urine Mucus Rare H (None) /hpf Thrombosis Risk Factor Assmnt - Choose All That Apply Any of the Below Risk Factors Present?: No
[2023-12-07] MEDS: NAPROXEN 250 MG TAB PO SCH (21:31)
[2023-12-07] MEDS: FAMOTIDINE 20 MG TAB PO SCH (21:31)
[2023-12-08 06:55] LABS: Appearance,Urine Clear (Clear); Bacteria,Urine Rare /hpf; Bilirubin,Urine Negative (Negative); Blood,Urine Negative (Negative); Color,Urine Yellow; Glucose,Urine (UA) Negative (Negative); Ketones,Urine Negative (Negative); Leukocyte Esterase,Urine Moderate (Negative); Mucus,Urine Occasional /hpf; Nitrite,Urine Negative (Negative); PH, Urine 6.5 (5.0-8.0); Protein,Urine 1+ (Negative); RBC,Urine 2 /hpf (0-5); Squamous Epithelial Cell,Urine 5 /hpf (0-4); Urobilinogen,Urine >12.0 mg/dL (<2.0); WBC,Urine 42 /hpf (0-5)
[2023-12-08 09:32] LABS: Basophils # (A) 0.03 X 10*3/uL (0.00-0.10); Basophils % (A) 0.4 %; Eosinophils # (A) 0.18 X 10*3/uL (0.04-0.35); Eosinophils % (A) 2.2 %; HCT 31.9 % (37.2-46.3); Lymphocytes # (A) 1.88 X 10*3/uL (0.90-5.00); MCH 27.2 pg (27.0-32.0); MCHC 31.3 g/dL (32.0-37.0); MCV 86.7 FL (80.0-97.0); Mean Platelet Volume 11.5 FL (9.5-12.2); Monocytes # (A) 1.09 X 10*3/uL (0.20-1.00); Monocytes % (A) 13.3 %; NRBC Per 100 WBC 0 X 10*3/uL (0.00-0.01); Neutrophils # (A) 4.94 X 10*3/uL (1.80-7.70); Neutrophils % (A) 60.4 %; Platelet Count 187 X 10*3/uL (140-440); RBC 3.68 X 10*6/uL (4.10-5.20); RDW 14.3 % (11.5-14.5); WBC 8.18 X 10*3/uL (4.50-10.00)
[2023-12-08 10:06] LABS: Blood Urea Nitrogen 8.4 mg/dL (9.0-27.0); Calcium 8.2 mg/dL (8.7-10.3); Carbon Dioxide 20.6 mmol/L (21.6-31.8); Chloride 109 mmol/L (96-109); Glucose 104 mg/dL (70-110); Potassium 3.9 mmol/L (3.5-5.5); Sodium 140 mmol/L (135-145)
[2023-12-08] MEDS: ONDANSETRON 4 MG/2 ML VIAL IVP PRN (20:23)
--- NOTE | 2023-12-08 21:35 | P.PN ---
Progress Note - Text Progress Note Date: 12/08/23 Chief Complaint: Nausea This is a 28-year-old patient whose had previous UTIs. Follows with Dr. Webster. For about 2-week not feeling well. 1 day started having more dark-colored urine. Strong colored urine. Fever and chills tired perspiring nausea. Totally rundown. Clammy, presented to the ER. Pale able to eat December 07: Admitted with acute right-sided para nephritis/UTI versus sepsis. This morning feels better. Not perspiring. Her color appears better. Did tolerate light diet. Patient's boyfriend is visiting. Made a walk in the hallway. Pain is much better. Active Medications Acetaminophen (Acetaminophen Tab 325 Mg Tab) 650 mg PO Q6HR PRN PRN Reason: Mild Pain or Fever > 100.5 Last Admin: 12/08/23 00:57 Dose: 650 mg Enoxaparin Sodium (Enoxaparin 40 Mg/0.4 Ml Syringe) 40 mg SQ DAILY [facility] Last Admin: 12/08/23 09:22 Dose: 40 mg Famotidine (Famotidine 20 Mg Tab) 20 mg PO BID [facility] Last Admin: 12/08/23 20:12 Dose: 20 mg Ceftriaxone Sodium 1 gm/ (Sodium Chloride) 50 mls @ 100 mls/hr IVPB Q12HR [facility]; Protocol Last Admin: 12/08/23 20:11 Dose: 100 mls/hr Lactated Ringer's (Lactated Ringers) 1,000 mls @ 150 mls/hr IV .Q6H40M [facility] Last Admin: 12/08/23 20:11 Dose: 150 mls/hr Ketorolac Tromethamine (Ketorolac 15 Mg/Ml 1 Ml Vial) 15 mg IVP Q6HR PRN PRN Reason: Moderate Pain (Scale 4 to 6) Stop: 12/10/23 01:05 Last Admin: 12/08/23 17:55 Dose: 15 mg Naloxone HCl (Naloxone 0.4 Mg/Ml 1 Ml Vial) 0.2 mg IV Q2M PRN PRN Reason: Opioid Reversal Naproxen (Naproxen 250 Mg Tab) 250 mg PO BID [facility] Last Admin: 12/08/23 20:12 Dose: 250 mg Ondansetron HCl (Ondansetron 4 Mg/2 Ml Vial) 4 mg IVP Q8HR PRN PRN Reason: Nausea And Vomiting Last Admin: 12/08/23 20:23 Dose: 4 mg Social history: Lives alone has 5 children aged 8, 7, 4, 3, 4-month-old. Her friend is a electrical drafter. 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 Does not smoke or drink alcohol Physical examination: VITAL SIGNS: 98.3, 91, 20, 125/79, 97% room air GENERAL: Resting in bed, appearing much better EYES: Pupils equal. Conjunctiva riya l. HEENT: External appearance of nose and ears normal, oral cavity grossly normal. NECK: JVD not raised; masses not palpable. HEART: First and second heart sounds are normal; no edema. LUNGS: Respiratory rate normal; clear to auscultation. ABDOMEN: Soft, improved right flank tenderness r, liver spleen not palpable, no masses palpable. PSYCH: Alert and oriented x3; mood and affect riya l. MUSCULOSKELETAL:No Clubbing/cyanosis;muscles-grossly intact INVESTIGATIONS, reviewed in the clinical context: December 07: White count 8.1 hemoglobin 10 platelets 487 potassium 3.9 creatinine 0.6 December 06, 2023: White count 20.9 hemoglobin 13.9 platelets 229 sodium 133 potassium 3.8 creatinine 0.79 UA: Positive for leukoesterase WBC bacteria Assessment plan: -Acute right-sided para nephritis with UTI cystitis causing sepsis: Better Antibiotics fluids -Acute severe UTI with cystitis causing sepsis IV ceftriaxone 1 g every 12 due to severity -Severe sepsis: Better Antibiotics, IV fluids at the rate of 150 cc an hour -Severe nausea secondary to sepsis: Better Zofran as needed -Mild hyponatremia secondary to hypovolemia -Hyperbilirubinemia Diet discussed. Cut back IV fluids. Continue antibiotics. Patient did walk in the hallway with her boyfriend. Cultures negative till now Past Medical History Past Medical History: No Reported History Additional Past Medical History / Comment(s): Patient's had 4 previous vaginal deliveries term History of Any Multi-Drug Resistant Organisms: None Reported Past Surgical History: Cholecystectomy Additional Past Surgical History / Comment(s): Gum surgery. Past Anesthesia/Blood Transfusion Reactions: No Reported Reaction Past Psychological History: No Psychological Hx Reported Smoking Status: Never smoker Past Alcohol Use History: None Reported Past Drug Use History: None Reported
[2023-12-09 07:44] VITALS: BP 112/76; PULSE 81; RESP 16; TEMP 98.5
--- NOTE | 2023-12-09 21:12 | P.DS ---
Providers Date of admission: 12/07/23 01:06 Expected date of discharge: 12/09/23 Attending physician: Kyaw Camara Primary care physician: Yunior Darin [facility] Course: Chief Complaint: Nausea This is a 28-year-old patient whose had previous UTIs. Follows with Dr. Webster. For about 2-week not feeling well. 1 day started having more dark-colored urine. Strong colored urine. Fever and chills tired perspiring nausea. Totally rundown. Clammy, presented to the ER. Pale able to eat December 07: Admitted with acute right-sided para nephritis/UTI versus sepsis. This morning feels better. Not perspiring. Her color appears better. Did tolerate light diet. Patient's boyfriend is visiting. Made a walk in the hallway. Pain is much better. December 08: Patient doing much better up and about. No abdominal pain. Eating well. Will complete 7 more days of Ceftin because of severe pyelonephritis. Patient return to work on December 11. Care discussed in detail. Discussion and discharge planning more than 35 minutes Social history: Lives alone has 5 children aged 8, 7, 4, 3, 4-month-old. Her friend is a developmental therapist. 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 Does not smoke or drink alcohol Physical examination: VITAL SIGNS: 98.5, 81, 16, 1 one 2 x 76, 100% room air GENERAL:, Double EYES: Pupils equal. Conjunctiva riya l. HEENT: External appearance of nose and ears normal, oral cavity grossly normal. NECK: JVD not raised; masses not palpable. HEART: First and second heart sounds are normal; no edema. LUNGS: Respiratory rate normal; clear to auscultation. ABDOMEN: Soft, improved right flank tenderness r, liver spleen not palpable, no masses palpable. PSYCH: Alert and oriented x3; mood and affect riya l. MUSCULOSKELETAL:No Clubbing/cyanosis;muscles-grossly intact INVESTIGATIONS, reviewed in the clinical context: Urine culture negative December 07: White count 8.1 hemoglobin 10 platelets 487 potassium 3.9 creatinine 0.6 December 06, 2023: White count 20.9 hemoglobin 13.9 platelets 229 sodium 133 potassium 3.8 creatinine 0.79 UA: Positive for leukoesterase WBC bacteria Assessment plan: -Acute right-sided para nephritis with UTI cystitis causing sepsis: Improved Antibiotics fluids -Acute severe UTI with cystitis causing sepsis IV ceftriaxone 1 g every 12 due to severity Ceftin 5 mg twice daily for 7 more days -Severe sepsis: Better Antibiotics, IV fluids at the rate of 150 cc an hour -Severe nausea secondary to sepsis: Better Zofran as needed -Mild hyponatremia secondary to hypovolemia -Hyperbilirubinemia Disposition: Home Past Medical History Past Medical History: No Reported History Additional Past Medical History / Comment(s): Patient's had 4 previous vaginal deliveries term History of Any Multi-Drug Resistant Organisms: None Reported Past Surgical History: Cholecystectomy Additional Past Surgical History / Comment(s): Gum surgery. Past Anesthesia/Blood Transfusion Reactions: No Reported Reaction Past Psychological History: No Psychological Hx Reported Smoking Status: Never smoker Past Alcohol Use History: None Reported Past Drug Use History: None Reported Plan - Discharge Summary Discharge Rx Participant: Yes New Discharge Prescriptions: New cefUROXime axetiL [Ceftin] 500 mg PO BID #14 tab Naproxen [Naprosyn] 250 mg PO BID #10 tab Famotidine [Pepcid] 20 mg PO BID #10 tab Acetaminophen Tab [Tylenol] 650 mg PO Q6HR PRN tab PRN Reason: Mild Pain Or Fever > 100.5 Continue Butalb/APAP/Caff 50-325-40Mg [Fioricet 50-325-40] 1 tab PO BID Discontinued Nitrofurantoin Monohyd/M-Cryst [Macrobid] 100 mg PO Q12HR Discharge Medication List Butalb/APAP/Caff 50-325-40Mg [Fioricet 50-325-40] 1 tab PO BID 12/07/23 [History] Acetaminophen Tab [Tylenol] 650 mg PO Q6HR PRN tab 12/09/23 [Rx] Famotidine [Pepcid] 20 mg PO BID #10 tab 12/09/23 [Rx] Naproxen [Naprosyn] 250 mg PO BID #10 tab 12/09/23 [Rx] cefUROXime axetiL [Ceftin] 500 mg PO BID #14 tab 12/09/23 [Rx] Follow up Appointment(s)/Referral(s): Yunior Webster MD [Primary Care Provider] - 1-2 days Discharge/Stand Alone Forms: Work/School Release
== END 2023-12-09 12:43 | disposition home or self-care (01) | DRG 720 ==
LOC: EC 22:14 → 6NMEDSUR 12-07 01:05 → OBSVTOIN 12-07 01:06 → 6NMEDSUR 12-07 05:22
PROVIDERS: ADMIT Hospitalist; ATTEND Hospitalist
DX: A41.9 Sepsis, unspecified organism (principal); N12 Tubulo-interstitial nephritis, not specified as acute or chronic; R65.20 Severe sepsis without septic shock; Z60.2 Problems related to living alone; E87.1 Hypo-osmolality and hyponatremia; E80.6 Other disorders of bilirubin metabolism; N30.90 Cystitis, unspecified without hematuria; R11.0 Nausea; Z28.310 Unvaccinated for COVID-19; Z87.440 Personal history of urinary (tract) infections; Z28.21 Immunization not carried out because of patient refusal
CPT/HCPCS: 36415; 72050; 74177; 80048; 80053; 81001; 81025; 83605; 84145; 85025; 87040; 87086; 96361; 96374; 96375; 96376; 99285